=== PATIENT | male | born 1945 | race Caucasian/White ===

== ENCOUNTER 2017-03-16 04:36 | Emergency (ER) | payer MEDICARE, BC ==
[2017-03-16 04:51] VITALS: BP 174/85; PULSE 129; RESP 24; TEMP 97.1
--- NOTE | 2017-03-16 05:28 | ED ---
General Adult HPI - General Chief complaint: Recheck/Abnormal Lab/Rx Stated complaint: No sleep, Med refill Time Seen by Provider: 03/16/17 04:53 Source: patient Mode of arrival: ambulatory Limitations: no limitations - History of Present Illness Initial comments: Patient is 72-year-old man who presents to be evaluated for having run out of the tramadol that he usually takes. The patient states that he has recently moved here from [place] and the prescription for tramadol 50 mg that he had has run out. Patient states that he is scheduled to see Dr. Gallagher on February 19. The patient states that he is having aches and also feels twitchy and anxious. Patient states he also has not been able to sleep. -: days(s) Consistency: constant Improves with: none Worsens with: none Associated Symptoms: malaise, nausea/vomiting - Related Data Previous Rx's Medication Instructions Recorded traMADol HCl [Ultram] 50 mg PO Q6H PRN #20 tab 03/16/17 Allergies Allergy/AdvReac Type Severity Reaction Status Date / Time No Known Allergies Allergy Verified 03/16/17 04:51 Review of Systems ROS Statement: Those systems with pertinent positive or pertinent negative responses have been documented in the HPI. ROS Other: All systems not noted in ROS Statement are negative. Constitutional: Reports: chills. Denies: fever, weakness Respiratory: Denies: cough, dyspnea Cardiovascular: Denies: chest pain, dyspnea on exertion, orthopnea, edema Gastrointestinal: Reports: nausea. Denies: abdominal pain, vomiting Musculoskeletal: Reports: myalgia Skin: Denies: rash Neurological: Denies: headache, weakness, numbness Psychiatric: Reports: anxiety Past Medical History Past Medical History: Hypertension History of Any Multi-Drug Resistant Organisms: None Reported Additional Past Surgical History / Comment(s): laminectomy L5 S2. Past Psychological History: No Psychological Hx Reported Smoking Status: Never smoker Past Alcohol Use History: None Reported Past Drug Use History: Marijuana General Exam Limitations: no limitations General appearance: alert Head exam: Present: atraumatic, normocephalic GI/Abdominal exam: Present: soft. Absent: tenderness Extremities exam: Present: normal inspection Neurological exam: Present: alert Psychiatric exam: Present: anxious Course Vital Signs 03/16/17 04:44 Temperature 97.1 F L Pulse Rate 129 H Respiratory 24 Rate Blood Pressure 174/85 O2 Sat by Pulse 98 Oximetry Disposition Clinical Impression: Encounter for medication refill, Opioid withdrawal Disposition: HOME SELF-CARE Condition: Fair Instructions: Opioid Withdrawal (ED) Prescriptions: traMADol HCl [Ultram] 50 mg PO Q6H PRN #20 tab PRN Reason: Pain Referrals: Robin Gallagher MD [Primary Care Provider] - 1-2 days
== END 2017-03-16 05:38 | disposition home or self-care (01) ==
LOC: EC 04:36
DX: F11.23 Opioid dependence with withdrawal (principal); Z76.0 Encounter for issue of repeat prescription
CPT/HCPCS: 99283

== ENCOUNTER 2021-04-12 09:40 | Inpatient (IN) | payer BC, MEDICARE ==
[2021-04-12] MEDS ORDERED: SODIUM CHLORIDE 0.9% 500 ML 500 ML IV STA (10:03)
[2021-04-12] MEDS ORDERED: SODIUM CHLORIDE 0.9% 1,000 ML IV STA (10:03)
[2021-04-12] MEDS ORDERED: ASPIRIN 81 MG PO STA (10:04)
[2021-04-12] MEDS ORDERED: ACETAMINOPHEN TAB 500 MG TAB PO STA (10:04)
--- NOTE | 2021-04-12 10:14 | ED ---
General Adult HPI - General Chief complaint: Nausea/Vomiting/Diarrhea Stated complaint: diarrhea, weakness, confusion Time Seen by Provider: 04/12/21 09:48 Source: patient, family, EMS, RN notes reviewed Mode of arrival: EMS Limitations: no limitations - History of Present Illness Initial comments: This a 76-year-old male presents emergency department via EMS chief complaint of generalized weakness, diarrhea. Patient states he's been having persistent diarrhea the last couple days he does have a history of colitis but states is much different. in the room states that he's been confused, and having abnormal behavior at home. Patient does have some lower abdominal cramping associated with his diarrhea denies any melena hematochezia. Patient denies any chest pain, shortness breath, dizziness, upper back pain. Patient has no prior cardiac disease she does admit that he has hypertension, Lipidemia is taking medications for. Patient denies any dysuria hematuria no history of urinary tract infections. Patient did not because he had a fever at home. No recent Tylenol Motrin taken. - Related Data Previous Rx's Medication Instructions Recorded traMADol HCl [Ultram] 50 mg PO Q6H PRN #20 tab 03/16/17 Allergies Allergy/AdvReac Type Severity Reaction Status Date / Time No Known Allergies Allergy Verified 04/12/21 09:48 Review of Systems ROS Statement: Those systems with pertinent positive or pertinent negative responses have been documented in the HPI. ROS Other: All systems not noted in ROS Statement are negative. Past Medical History Past Medical History: Hypertension History of Any Multi-Drug Resistant Organisms: None Reported Additional Past Surgical History / Comment(s): laminectomy L5 S2. Past Psychological History: No Psychological Hx Reported Smoking Status: Never smoker Past Alcohol Use History: None Reported Past Drug Use History: Marijuana General Exam Limitations: no limitations General appearance: alert, in no apparent distress Head exam: Present: atraumatic, normocephalic, normal inspection Eye exam: Present: normal appearance, PERRL, EOMI. Absent: scleral icterus, conjunctival injection, periorbital swelling ENT exam: Present: mucous membranes dry. Absent: normal exam Neck exam: Present: normal inspection, full ROM. Absent: tenderness, meningismus, lymphadenopathy Respiratory exam: Present: normal lung sounds bilaterally. Absent: respiratory distress, wheezes, rales, rhonchi, stridor Cardiovascular Exam: Present: normal rhythm, tachycardia, normal heart sounds. Absent: systolic murmur, diastolic murmur, rubs, gallop, clicks GI/Abdominal exam: Present: soft, tenderness (Mild lower abdominal tenderness), normal bowel sounds. Absent: distended, guarding, rebound, rigid Neurological exam: Present: alert, oriented X3 Skin exam: Present: warm, dry, intact, normal color. Absent: rash Course Vital Signs 04/12/21 04/12/21 04/12/21 09:43 10:15 11:33 Temperature 100.6 F H Pulse Rate 113 H 101 H Respiratory 24 18 Rate Blood Pressure 102/52 95/67 O2 Sat by Pulse 99 97 Oximetry EKG Findings - EKG Comments: EKG Findings:: EKG performed at 9:52 sinus tachycardia with rate of 111 IN 138 QRS 86 QTC is QTC 314/[address] depression V3 through V6 with no other changes noted. Repeat EKG shows no acute changes Medical Decision Making - Medical Decision Making CT does not show any specific changes. Patient's found to Be in acute renal failure, dehydration most likely infectious diarrhea. Patient we given a dose of antibiotics pending stool culture, C. diff. Patient has a lactic acidosis a 2.8, patient was given fluid boluses, started on maintenance fluids patient be admitted for further evaluation and treatment. Patient's EKG did show some ST depression patient no complaints of chest pain, shortness breath, pressure. Repeat EKG showed no progression. - Lab Data Result diagrams: 04/12/21 10:13 04/12/21 10:13 Lab Results 04/12/21 04/12/21 04/12/21 Range/Units 10:13 10:13 10:13 WBC 5.5 (3.8-10.6) k/uL RBC 4.08 L (4.30-5.90) m/uL Hgb 12.9 L (13.0-17.5) gm/dL Hct 37.0 L (39.0-53.0) % MCV 90.8 (80.0-100.0) fL MCH 31.7 (25.0-35.0) pg MCHC 35.0 (31.0-37.0) g/dL RDW 13.6 (11.5-15.5) % Plt Count 350 (150-450) k/uL MPV 7.5 Neutrophils % (Manual) 52 % Band Neuts % (Manual) 25 % Lymphocytes % (Manual) 5 % Monocytes % (Manual) 16 % Metamyelocytes % 1 % Myelocytes % 1 % Neutrophils # (Manual) 4.20 (1.3-7.7) k/uL Lymphocytes # (Manual) 0.28 L (1.0-4.8) k/uL Monocytes # (Manual) 0.88 (0-1.0) k/uL Metamyelocytes # (Man) 0.06 H (0) k/uL Myelocytes # (Manual) 0.06 H (0) k/uL Nucleated RBCs 0 (0-0) /100 WBC Polychromasia Present Poikilocytosis (manual Present PT 11.4 (9.0-12.0) sec INR 1.1 (<1.2) APTT 27.3 (22.0-30.0) sec Sodium 133 L (137-145) mmol/L Potassium 4.7 (3.5-5.1) mmol/L Chloride 103 (98-107) mmol/L Carbon Dioxide 18 L (22-30) mmol/L Anion Gap 12 mmol/L BUN 53 H (9-20) mg/dL Creatinine 2.44 H (0.66-1.25) mg/dL Est GFR (CKD-EPI)AfAm 29 (>60 ml/min/1.73 sqM) Est GFR (CKD-EPI)NonAf 25 (>60 ml/min/1.73 sqM) Glucose 112 H (74-99) mg/dL Plasma Lactic Acid Esau (0.7-2.0) mmol/L Calcium 8.2 L (8.4-10.2) mg/dL Magnesium 2.6 H (1.6-2.3) mg/dL Total Bilirubin 0.5 (0.2-1.3) mg/dL AST 25 (17-59) U/L ALT 14 (4-49) U/L Alkaline Phosphatase 407 H (38-126) U/L Troponin I (0.000-0.034) ng/mL Total Protein 5.2 L (6.3-8.2) g/dL Albumin 2.9 L (3.5-5.0) g/dL Coronavirus (PCR) (Not Detectd) 0904/12/21 04/12/21 Range/Units 10:13 10:13 10:15 WBC (3.8-10.6) k/uL RBC (4.30-5.90) m/uL Hgb (13.0-17.5) gm/dL Hct (39.0-53.0) % MCV (80.0-100.0) fL MCH (25.0-35.0) pg MCHC (31.0-37.0) g/dL RDW (11.5-15.5) % Plt Count (150-450) k/uL MPV Neutrophils % (Manual) % Band Neuts % (Manual) % Lymphocytes % (Manual) % Monocytes % (Manual) % Metamyelocytes % % Myelocytes % % Neutrophils # (Manual) (1.3-7.7) k/uL Lymphocytes # (Manual) (1.0-4.8) k/uL Monocytes # (Manual) (0-1.0) k/uL Metamyelocytes # (Man) (0) k/uL Myelocytes # (Manual) (0) k/uL Nucleated RBCs (0-0) /100 WBC Polychromasia Poikilocytosis (manual PT (9.0-12.0) sec INR (<1.2) APTT (22.0-30.0) sec Sodium (137-145) mmol/L Potassium (3.5-5.1) mmol/L Chloride (98-107) mmol/L Carbon Dioxide (22-30) mmol/L Anion Gap mmol/L BUN (9-20) mg/dL Creatinine (0.66-1.25) mg/dL Est GFR (CKD-EPI)AfAm (>60 ml/min/1.73 sqM) Est GFR (CKD-EPI)NonAf (>60 ml/min/1.73 sqM) Glucose (74-99) mg/dL Plasma Lactic Acid Esau 2.8 H* (0.7-2.0) mmol/L Calcium (8.4-10.2) mg/dL Magnesium (1.6-2.3) mg/dL Total Bilirubin (0.2-1.3) mg/dL AST (17-59) U/L ALT (4-49) U/L Alkaline Phosphatase (38-126) U/L Troponin I <0.012 (0.000-0.034) ng/mL Total Protein (6.3-8.2) g/dL Albumin (3.5-5.0) g/dL Coronavirus (PCR) Not Detected (Not Detectd) Disposition Clinical Impression: Dehydration, Acute kidney injury, Diarrhea, Lactic acidosis, Febrile illness Disposition: ADMITTED IP TO THIS [facility] Condition: Fair Referrals: Robin Gallagher MD [Primary Care Provider] - 1-2 days
--- NOTE | 2021-04-12 10:43 | XR ---
EXAMINATION TYPE: XR chest 2V DATE OF EXAM: 04/12/2021 COMPARISON: NONE HISTORY: Weakness TECHNIQUE: Frontal and lateral views of the chest are obtained. FINDINGS: There is no focal air space opacity, pleural effusion, or pneumothorax seen. The cardiac silhouette size is within normal limits. The osseous structures are intact. IMPRESSION: No acute cardiopulmonary process.
[2021-04-12 10:51] LABS: Albumin 2.9 g/dL (3.5-5.0); Calcium 8.2 mg/dL (8.4-10.2); Magnesium 2.6 mg/dL (1.6-2.3); Potassium 4.7 mmol/L (3.5-5.1); Total Bilirubin 0.5 mg/dL (0.2-1.3); Total Protein 5.2 g/dL (6.3-8.2)
[2021-04-12 10:54] LABS: INR 1.1 (<1.2); Partial Thromboplastin Time 27.3 sec (22.0-30.0); Prothrombin Time 11.4 sec (9.0-12.0)
[2021-04-12 10:55] LABS: HGB 12.9 gm/dL (13.0-17.5); MCH 31.7 pg (25.0-35.0); MCV 90.8 fL (80.0-100.0); Mean Platelet Volume 7.5; Platelet Count 350 k/uL (150-450); RBC 4.08 m/uL (4.30-5.90); RDW 13.6 % (11.5-15.5); WBC 5.5 k/uL (3.8-10.6)
[2021-04-12 11:14] LABS: Band Neutrophils % 25 %; Lymphocytes # (M) 0.28 k/uL (1.0-4.8); Metamyelocytes # (M) 0.06 k/uL (0); Metamyelocytes % 1 %; Monocytes # (M) 0.88 k/uL (0-1.0); Myelocytes # (M) 0.06 k/uL (0); Myelocytes % 1 %; Neutrophils % (M) 52 %; Nucleated Red Blood Cells 0 /100 WBC (0-0); Poikilocytosis (M) Present; Polychromasia Present; Total Cells Counted 100
--- NOTE | 2021-04-12 11:50 | CT ---
EXAMINATION TYPE: CT abdomen pelvis wo con DATE OF EXAM: 04/12/2021 COMPARISON: None HISTORY: Lower pelvic pain CT DLP: 495.9 mGycm Automated exposure control for dose reduction was used. TECHNIQUE: Helical acquisition of images was performed from the lung bases through the pelvis. FINDINGS: There is mild scattered interstitial density in the lung bases likely reflecting mild atelectasis or chronic interstitial scarring. There are no suspicious lung masses or area of airspace consolidation. There is no cholelithiasis there is no renal, ureteral or urinary bladder calcification. There is no hydronephrosis. There is a simple cortical cyst of the left kidney. There is no organomegaly involving the liver, pancreas, spleen or adrenal glands. The caliber of the abdominal aorta is normal and there is diffuse arteriosclerotic calcification of t he aorta and iliac vessels. There is no retroperitoneal adenopathy or hemorrhage. The bowel loops are normal in caliber and there is no evidence of dilatation or obstruction. There is no free intraperitoneal air, free fluid or mesenteric inflammation. There is mild diverticulosis of the colon. There is no pelvic mass, free fluid, abscess or adenopathy. The osseous structures are intact. IMPRESSION: Incidental findings as described above. Etiology of the patient's pelvic pain is indeterminate follow ing this examination.
[2021-04-12] MEDS ORDERED: LEVOFLOXACIN 750MG-D5W PMX 750 MG in DEXTROSE/WATER 1 150ML.BAG IVPB STA (12:22)
[2021-04-12] MEDS ORDERED: metroNIDAZOLE-NS PMX 500 MG in SALINE 1 100ML.BAG IVPB STA (12:22)
[2021-04-12] MEDS ORDERED: NALOXONE 0.4 MG/ML 1 ML VIAL IV PRN (12:24)
[2021-04-12] MEDS ORDERED: ACETAMINOPHEN TAB 325 MG TAB PO PRN (12:24)
[2021-04-12] MEDS ORDERED: ONDANSETRON 4 MG/2 ML VIAL IVP PRN (12:24)
[2021-04-12] MEDS: SODIUM CHLORIDE 0.9% 1,000 ML IV SCH ×2 (14:08→20:43)
[2021-04-12 16:48] LABS: Appearance,Urine Cloudy (Clear); Bacteria,Urine Rare /hpf; Bilirubin,Urine Negative (Negative); Blood,Urine Large (Negative); Budding Yeast,Urine Occasional /hpf; Color,Urine Yellow; Glucose,Urine (UA) Negative (Negative); Ketones,Urine Negative (Negative); Leukocyte Esterase,Urine Negative (Negative); Mucus,Urine Rare /hpf; Nitrite,Urine Negative (Negative); Protein,Urine Trace (Negative); RBC,Urine 22 /hpf (0-5); Specific Gravity,Urine 1.015 (1.001-1.035); Squamous Epithelial Cell,Urine <1 /hpf (0-4); Urobilinogen,Urine <2.0 mg/dL (<2.0); WBC,Urine 27 /hpf (0-5)
[2021-04-12] MEDS: ATORVASTATIN 40 MG TAB PO SCH (20:42)
[2021-04-12] MEDS: AMITRIPTYLINE HCL 50 MG TAB PO SCH (20:42)
[2021-04-12] MEDS: traMADol 50 MG TAB PO PRN (21:26)
--- NOTE | 2021-04-12 22:13 | P.HPIM ---
History of Present Illness H&P Date: 04/12/21 Chief Complaint: Diarrhea is 76-year-old male with a past medical history of hypertension brought into the hospital with a chief complaint of generalized weakness and diarrhea. Patient is a poor historian. Patient states that he has history of colitis and that he has chronic diarrhea. But for the past 2 to 3 days his diarrhea has been worsening. He was also complaining of nausea along with few episodes of vomiting. Patient denies having any fever. He is states that he has cramping abdominal pain mostly in the lower quadrants. Patient denies having any sick contacts. He denies consuming outside food. Patient denied having any blood or mucus in the stool. Patient denied having any chest pain or palpitations. No cough or difficulty in breathing. No dysuria or hematuria. In the ER at the time of admission patient's vitals temperature of 100.6, heart rate 113, respiratory rate 24, blood pressure 102 x 52 saturating at 99 on room air. He had an EKG done showing sinus tachycardia with T wave flattening and T wave inversions. No previous EKGs for comparison. On reviewing his labs white count of 5.5 hemoglobin 12.9 platelets 350. Sodium 133, potassium 4.7 chloride 103 bicarb 18 BUN 53, creatinine 2.44 magnesium 2.6 troponin less than 0.012 albumin 2.9 urine analysis positive for large blood negative for nitrites and esterase 27 WBCs with occasional budding yeast. Coronary virus negative. C. difficile negative. Patient also had a CAT scan of the abdomen and pelvis showing no acute intra-abdominal process there is evidence of diverticulosis. Review of Systems REVIEW OF SYSTEMS: CONSTITUTIONAL: As mentioned in HPI HEENT: No recent visual problems or hearing problems. Denied any sore throat. CARDIOVASCULAR: No chest pain, orthopnea, PND, no palpitations, no syncope. PULMONARY: No shortness of breath, no cough, no hemoptysis. GASTROINTESTINAL: As mentioned in HPI NEUROLOGICAL: No headaches, no weakness, no numbness. HEMATOLOGICAL: Denies any bleeding or petechiae. GENITOURINARY: Denies any burning micturition, frequency, or urgency. MUSCULOSKELETAL/RHEUMATOLOGICAL: Denies any joint pain, swelling, or any muscle pain. ENDOCRINE: Denies any polyuria or polydipsia. The rest of the 14-point review of systems is negative. Past Medical History Past Medical History: Hypertension History of Any Multi-Drug Resistant Organisms: None Reported Additional Past Surgical History / Comment(s): laminectomy L5 S2. Past Psychological History: No Psychological Hx Reported Smoking Status: Never smoker Past Alcohol Use History: None Reported Past Drug Use History: Marijuana Medications and Allergies Home Medications Medication Instructions Recorded Confirmed Type Amitriptyline HCl [Elavil] 100 mg PO HS 04/12/21 04/12/21 History Atorvastatin Calcium [Lipitor] 40 mg PO HS 04/12/21 04/12/21 History Diltiazem HCl [Diltiazem HCl 24Hr 300 mg PO DAILY 04/12/21 04/12/21 History ER ([place])] L.acidoph,Paracasei, B.lactis 1 cap PO DAILY 04/12/21 04/12/21 History [Probiotic] Naproxen 500 mg PO BID 04/12/21 04/12/21 History Sertraline HCl [Zoloft] 150 mg PO DAILY 04/12/21 04/12/21 History traMADol HCl [Ultram] 50 mg PO Q4H PRN 04/12/21 04/12/21 History Allergies Allergy/AdvReac Type Severity Reaction Status Date / Time No Known Allergies Allergy Verified 04/12/21 09:48 Physical Exam Vitals: Vital Signs Temp Pulse Resp BP Pulse Ox 04/12/21 16:32 101 H 18 138/65 98 04/12/21 15:17 102 H 18 114/63 99 04/12/21 14:09 97.9 F 102 H 18 95/59 98 04/12/21 11:33 101 H 18 95/67 97 04/12/21 10:15 99 04/12/21 09:43 100.6 F H 113 H 24 102/52 Intake and Output 04/12/21 04/12/21 04/12/21 06:59 14:59 22:59 Other: Voiding Method Toilet Weight 74.843 kg PHYSICAL EXAMINATION: GENERAL: The patient is alert and oriented x2, not in any acute distress. Well developed, well nourished. HEENT: Pupils are round and equally reacting to light. EOMI. No scleral icterus. No conjunctival pallor. Normocephalic, atraumatic. No pharyngeal erythema. No thyromegaly. CARDIOVASCULAR: S1 and S2 present. No murmurs, rubs, or gallops. PULMONARY: Chest is clear to auscultation, no wheezing or crackles. ABDOMEN: Soft, mild tenderness in all quadrants, nondistended, normoactive bowel sounds. No palpable organomegaly. No guarding or rigidity MUSCULOSKELETAL: No joint swelling or deformity. EXTREMITIES: No cyanosis, clubbing, or pedal edema. NEUROLOGICAL: Gross neurological examination did not reveal any focal deficits. SKIN: No rashes. Results CBC & Chem 7: 04/12/21 10:13 04/12/21 10:13 Labs: Abnormal Lab Results - Last 24 Hours (Table) 04/12/21 04/12/21 04/12/21 Range/Units 10:13 10:13 10:13 RBC 4.08 L (4.30-5.90) m/uL Hgb 12.9 L (13.0-17.5) gm/dL Hct 37.0 L (39.0-53.0) % Lymphocytes # (Manual) 0.28 L (1.0-4.8) k/uL Metamyelocytes # (Man) 0.06 H (0) k/uL Myelocytes # (Manual) 0.06 H (0) k/uL Sodium 133 L (137-145) mmol/L Carbon Dioxide 18 L (22-30) mmol/L BUN 53 H (9-20) mg/dL Creatinine 2.44 H (0.66-1.25) mg/dL Glucose 112 H (74-99) mg/dL Plasma Lactic Acid Esau 2.8 H* (0.7-2.0) mmol/L Calcium 8.2 L (8.4-10.2) mg/dL Magnesium 2.6 H (1.6-2.3) mg/dL Alkaline Phosphatase 407 H (38-126) U/L Total Protein 5.2 L (6.3-8.2) g/dL Albumin 2.9 L (3.5-5.0) g/dL Assessment and Plan Assessment: ASSESSMENT Sepsis source most likely intra-abdominal pathology Possible UTI Acute kidney injury Mild hyponatremia Hypocalcemia Moderate protein calorie malnutrition Hypertension Cognitive impairment Plan: Patient received a dose of levofloxacin and Flagyl in the ED. Will start Zosyn. His C. difficile has been negative. Urine analysis showing possibility of UTI. As the patient's urine was showing voiding the same he has a fever we'll start the patient on fluconazole 200 mg daily until the urine cultures are back. Stool culture ordered. Patient has been restarted on his home medications. Continue with IV fluids at 130 cc/h as the patient has acute kidney injury. We'll repeat a.m. labs. Further management depending upon the progress of the patient.
[2021-04-12] MEDS: FLUCONAZOLE 100 MG TAB PO SCH (23:44)
[2021-04-13] MEDS ORDERED: PIPERACILLIN-TAZOBACTAM 3.375 GM in SODIUM CHLORIDE 0.9% 100 ML IVPB SCH ×2
[2021-04-13] MEDS: PIPERACILLIN-TAZOBACTAM 3.375 GM in SODIUM CHLORIDE 0.9% 100 ML IVPB SCH ×3 (02:41→17:29)
[2021-04-13] MEDS: traMADol 50 MG TAB PO PRN ×2 (02:56→10:35)
--- NOTE | 2021-04-13 08:26 | P.PN ---
Subjective Progress Note Date: 04/13/21 Principal diagnosis: Dehydration The patient is admitted for gastroenteritis with significant diarrhea. Acute kidney injury with dehydration. The patient has an underlying history of Ultram dependency. His does not have similar symptomatology. No abnormal dietary intake stated. Objective - Vital Signs Vital signs: Vital Signs Temp 98.0 F 04/12/21 19:37 Pulse 99 04/13/21 06:00 Resp 18 04/13/21 06:00 BP 132/89 04/13/21 06:00 Pulse Ox 97 04/13/21 06:00 Intake & Output 04/12/21 04/13/21 04/13/21 18:59 06:59 18:59 Weight 74.843 kg Other: Voiding Method Toilet - Constitutional General appearance: Present: average body habitus - EENT Eyes: Absent: abnormal pupil ENT: Absent: hard of hearing - Neck Neck: Absent: lymphadenopathy - Respiratory Respiratory: bilateral: CTA - Cardiovascular Rhythm: regular Heart sounds: normal: S1, S2 Abnormal Heart Sounds: Absent: S3 Gallop - Gastrointestinal General gastrointestinal: Present: hyperactive bowel sounds - Neurologic Neurologic: Present: CNII-XII intact - Labs CBC & Chem 7: 04/12/21 10:13 04/12/21 10:13 Labs: Abnormal Lab Results - Last 24 Hours (Table) 04/12/21 04/12/21 04/12/21 Range/Units 10:13 10:13 10:13 RBC 4.08 L (4.30-5.90) m/uL Hgb 12.9 L (13.0-17.5) gm/dL Hct 37.0 L (39.0-53.0) % Lymphocytes # (Manual) 0.28 L (1.0-4.8) k/uL Metamyelocytes # (Man) 0.06 H (0) k/uL Myelocytes # (Manual) 0.06 H (0) k/uL Sodium 133 L (137-145) mmol/L Carbon Dioxide 18 L (22-30) mmol/L BUN 53 H (9-20) mg/dL Creatinine 2.44 H (0.66-1.25) mg/dL Glucose 112 H (74-99) mg/dL Plasma Lactic Acid Esau 2.8 H* (0.7-2.0) mmol/L Calcium 8.2 L (8.4-10.2) mg/dL Magnesium 2.6 H (1.6-2.3) mg/dL Alkaline Phosphatase 407 H (38-126) U/L Total Protein 5.2 L (6.3-8.2) g/dL Albumin 2.9 L (3.5-5.0) g/dL Urine Protein (Negative) Urine Blood (Negative) Urine RBC (0-5) /hpf Urine WBC (0-5) /hpf Urine Bacteria (None) /hpf Urine Mucus (None) /hpf Urine Yeast (Budding) (None) /hpf 04/12/21 Range/Units 16:33 RBC (4.30-5.90) m/uL Hgb (13.0-17.5) gm/dL Hct (39.0-53.0) % Lymphocytes # (Manual) (1.0-4.8) k/uL Metamyelocytes # (Man) (0) k/uL Myelocytes # (Manual) (0) k/uL Sodium (137-145) mmol/L Carbon Dioxide (22-30) mmol/L BUN (9-20) mg/dL Creatinine (0.66-1.25) mg/dL Glucose (74-99) mg/dL Plasma Lactic Acid Esau (0.7-2.0) mmol/L Calcium (8.4-10.2) mg/dL Magnesium (1.6-2.3) mg/dL Alkaline Phosphatase (38-126) U/L Total Protein (6.3-8.2) g/dL Albumin (3.5-5.0) g/dL Urine Protein Trace H (Negative) Urine Blood Large H (Negative) Urine RBC 22 H (0-5) /hpf Urine WBC 27 H (0-5) /hpf Urine Bacteria Rare H (None) /hpf Urine Mucus Rare H (None) /hpf Urine Yeast (Budding) Occasional H (None) /hpf Microbiology - Last 24 Hours (Table) 04/12/21 15:17 Stool Culture - Preliminary Stool 04/12/21 16:33 Urine Culture - Preliminary Urine,Clean Catch Assessment and Plan (1) Acute kidney injury Current Visit: Yes Status: Acute Code(s): N17.9 - ACUTE KIDNEY FAILURE, UNSPECIFIED SNOMED Code(s): 20650182 (2) Dehydration Current Visit: Yes Status: Acute Code(s): E86.0 - DEHYDRATION SNOMED Code(s): 96442953 (3) Diarrhea Current Visit: Yes Status: Acute Code(s): R19.7 - DIARRHEA, UNSPECIFIED SNOMED Code(s): 98921855 Plan: Continue IV hydration. Check CMP in a.m. Stool culture as necessary. Reconcile medications as patient tolerates.
[2021-04-13 09:48] LABS: Basophils # (A) 0.01 X 10*3/uL (0.00-0.10); Basophils % (A) 0.2 %; Eosinophils # (A) 0.01 X 10*3/uL (0.04-0.35); Eosinophils % (A) 0.2 %; HCT 34.8 % (39.6-50.0); HGB 11.9 g/dL (13.0-17.0); Lymphocytes # (A) 0.42 X 10*3/uL (0.90-5.00); Lymphocytes % (A) 8.8 %; MCH 31.6 pg (27.0-32.0); MCHC 34.2 g/dL (32.0-37.0); MCV 92.6 fL (80.0-97.0); Mean Platelet Volume 9.5 fL (9.5-12.2); Monocytes # (A) 0.83 X 10*3/uL (0.20-1.00); Monocytes % (A) 17.4 %; Neutrophils # (A) 3.42 X 10*3/uL (1.80-7.70); Neutrophils % (A) 71.5 %; Platelet Count 284 X 10*3/uL (140-440); RBC 3.76 X 10*6/uL (4.40-5.60); RDW 13.3 % (11.5-14.5); WBC 4.78 X 10*3/uL (4.50-10.00)
[2021-04-13] MEDS: FLUCONAZOLE 100 MG TAB PO SCH (10:23)
[2021-04-13] MEDS: SERTRALINE 50 MG TAB PO SCH (10:24)
[2021-04-13] MEDS: LACTOBACILLUS ACIDOPH & BULGAR 1 EACH PACKET PO SCH (10:24)
[2021-04-13] MEDS: SODIUM CHLORIDE 0.9% 1,000 ML IV SCH ×3 (10:24→20:41)
[2021-04-13 10:51] LABS: African American GFR (CKD) 76.2 (60.0-200.0); Albumin 3.6 g/dL (3.80-4.90); Albumin/Globulin Ratio 1.8 (1.60-3.17); Anion Gap 15.8 mmol/L (4.00-12.00); BUN/Creat Ratio 32.73 Ratio (12.00-20.00); Calcium 8.1 mg/dL (8.7-10.3); Carbon Dioxide 16.2 mmol/L (21.6-31.8); Non-African American GFR(CKD) 65.8 (60.0-200.0); Potassium 4.3 mmol/L (3.5-5.5); Total Bilirubin 0.3 mg/dL (0.2-1.2); Total Protein 5.6 g/dL (6.2-8.2)
[2021-04-13] MEDS ORDERED: KETOROLAC 15 MG/ML 1 ML VIAL IVP STA (15:26)
[2021-04-13] MEDS ORDERED: ONDANSETRON 4 MG/2 ML VIAL IVP PRN (18:38)
[2021-04-13] MEDS: AMITRIPTYLINE HCL 50 MG TAB PO SCH (20:41)
[2021-04-13] MEDS: ATORVASTATIN 40 MG TAB PO SCH (20:41)
[2021-04-14] MEDS: SODIUM CHLORIDE 0.9% 1,000 ML IV SCH ×2 (04:01→10:18)
[2021-04-14] MEDS: PIPERACILLIN-TAZOBACTAM 3.375 GM in SODIUM CHLORIDE 0.9% 100 ML IVPB SCH ×3 (04:02→17:56)
[2021-04-14] MEDS: traMADol 50 MG TAB PO PRN ×3 (05:30→20:37)
[2021-04-14 07:44] LABS: ALT 22 U/L (4-49); AST 64 U/L (17-59); African American GFR (CKD) >90 (>60 ml/min/1.73 sqM); Albumin 2.6 g/dL (3.5-5.0); Albumin/Globulin Ratio 1.1; Alkaline Phosphatase 200 U/L (38-126); Anion Gap 8 mmol/L; Blood Urea Nitrogen 21 mg/dL (9-20); Calcium 7.5 mg/dL (8.4-10.2); Carbon Dioxide 19 mmol/L (22-30); Chloride 111 mmol/L (98-107); Globulin 2.3 g/dL; Glucose 69 mg/dL (74-99); Non-African American GFR(CKD) >90 (>60 ml/min/1.73 sqM); Potassium 4.2 mmol/L (3.5-5.1); Sodium 138 mmol/L (137-145); Total Bilirubin 0.4 mg/dL (0.2-1.3); Total Protein 4.9 g/dL (6.3-8.2)
[2021-04-14] MEDS: FLUCONAZOLE 100 MG TAB PO SCH (08:13)
[2021-04-14] MEDS: SERTRALINE 50 MG TAB PO SCH (08:13)
[2021-04-14] MEDS: LACTOBACILLUS ACIDOPH & BULGAR 1 EACH PACKET PO SCH (08:13)
--- NOTE | 2021-04-14 10:05 | CDI ---
Documentation Clarification Form Date: 04/14/2021 09:55:25 AM From: Adali Grover, [facility], CCDS Admit Date: 04/12/2021 12:31:00 PM Patient Name: David Rod Visit Number: [id number] Discharge Date: ATTENTION: The Clinical Documentation Specialists (CDI) and [facility] Coding Staff appreciate your assistance in clarifying documentation. Please respond to the clarification below the line at the bottom and electronically sign. The CDI & [facility] Coding staff will review the response and follow-up if needed. Please note: Queries are made part of the Legal Health Record. If you have any questions, please contact the author of this message via ITS. Dr. Robin Gallagher: Sepsis source most likely intra-abdominal pathology and possible UTI with PRASHANTH is documented in the 04/12 History & Physical. Additional clarification regarding the etiology/cause of the clinical indicators is requested. History/Risk Factors per the 04/12 H/P: Hypertension, Hyperlipidemia, Cognitive impairment, Chronic Diarrhea. Clinical Indicators: Presented to the ED on 04/12 via EMS with Nausea, Vomiting, Diarrhea, Weakness and Confusion per family. ED Clinical Impression: Dehydration, PRASHANTH, Diarrhea, Lactic Acidosis and Febrile Illness 04/12 ED: T 100.6, P 113, R 24, BP 102/52, PO 99 RA, BMI: 21.8 04/12 LAB: RBC 4.08, Hgb 12.9, Hct 37.0, Lymph 0.28; Na 133, CO2 18, BUN 53, Creatinine 2.44, Glucose 112, Lactic Acid 2.8, Calcium 8.2, Magnesium 2.6, Alk Phos 407, Total Protein 5.2, Albumin 2.9 04/12 UA: Cloudy, Trace Protein, Large Blood, RBC 22, WBC 27 04/12: C Diff: Negative. COVID NEG x2 04/12 CXR: No acute cardiopulmonary process. 04/12 Ct A/P: Incidental findings: Arteriosclerotic calcification of the aorta & iliac vessels, Mild diverticulosis of the colon. Treatment 04/12: Stool Culture, O2 2Lnc, IV Na Cl 1,000 mls @ 999 mls/hr q1H, IV Na Cl 500 mls @ 999 mls/hr q31M, IV Levaquin, IV Flagyl, IV Na Cl 1,000 mls @ 130 mls/hr q7H, po Diflucan. 04/13: IV Zosyn 100 mls @ 25 mls/hr q8Hr. In your professional opinion, please clarify if these findings signify one of the following conditions: [ ] Sepsis POA [ ] Sepsis, Not POA [ ] Sepsis ruled out [ ] Severe Sepsis with organ failure [ x ] Other, please specify ____SIRS [ ] Unable to determine (Template Last Reviewed: August 2020) [facility]
[2021-04-14 11:30] LABS: HCT 33.5 % (39.6-50.0); HGB 11.1 g/dL (13.0-17.0); MCH 30.9 pg (27.0-32.0); MCHC 33.1 g/dL (32.0-37.0); MCV 93.3 fL (80.0-97.0); Mean Platelet Volume 9.5 fL (9.5-12.2); Platelet Count 229 X 10*3/uL (140-440); RBC 3.59 X 10*6/uL (4.40-5.60); RDW 13.4 % (11.5-14.5); WBC 4.87 X 10*3/uL (4.50-10.00)
--- NOTE | 2021-04-14 13:27 | P.PN ---
Subjective Principal diagnosis: Dehydration. The patient is here after having improving diarrhea. The patient is admitted for gastroenteritis with significant diarrhea. Acute kidney injury with dehydration. The patient has an underlying history of Ultram dependency. His does not have similar symptomatology. No abnormal dietary intake stated. Today, the patient states he is feeling much better. Poor appetite but tolerating diet that he is given. Minimal diarrhea. Laboratory examination showed improvement of renal failure. Objective - Vital Signs Vital signs: Vital Signs Temp 98.3 F 04/14/21 07:26 Pulse 78 04/14/21 07:26 Resp 16 04/14/21 07:26 BP 164/78 04/14/21 07:26 Pulse Ox 95 04/14/21 07:26 Intake & Output 04/13/21 04/14/21 04/14/21 18:59 06:59 18:59 Intake Total 1620 Balance 1620 Weight 74.843 kg Intake: Intake, IV Titration 1140 Amount Piperacillin-Tazobactam 3 100 .375 gm In Sodium Chloride 0.9% 100 ml @ 25 mls/hr IVPB Q8H [facility] Rx#: [id number] Sodium Chloride 0.9% 1, 1040 000 ml @ 130 mls/hr IV . Q7H42M [facility] Rx#:[id number] Oral 480 Other: Voiding Method Toilet Toilet # Voids 3 # Bowel Movements 2 - Constitutional General appearance: Present: average body habitus, cooperative - EENT Eyes: Absent: abnormal pupil Ears: bilateral: normal - Neck Neck: Present: lymphadenopathy - Cardiovascular Rhythm: regular Heart sounds: normal: S1, S2 Abnormal Heart Sounds: Absent: S3 Gallop - Gastrointestinal General gastrointestinal: Present: soft. Absent: tenderness - Integumentary Integumentary: Present: rash - Neurologic Neurologic: Present: CNII-XII intact - Musculoskeletal Musculoskeletal: Present: generalized weakness - Psychiatric Psychiatric: Present: A&O x's 3. Absent: appropriate affect - Labs CBC & Chem 7: 04/14/21 06:34 04/14/21 06:34 Labs: Abnormal Lab Results - Last 24 Hours (Table) 04/14/21 04/14/21 Range/Units 06:34 06:34 RBC 3.59 L (4.40-5.60) X 10*6/uL Hgb 11.1 L (13.0-17.0) g/dL Hct 33.5 L (39.6-50.0) % Chloride 111 H (98-107) mmol/L Carbon Dioxide 19 L (22-30) mmol/L BUN 21 H (9-20) mg/dL Glucose 69 L (74-99) mg/dL Calcium 7.5 L (8.4-10.2) mg/dL AST 64 H (17-59) U/L Alkaline Phosphatase 200 H (38-126) U/L Total Protein 4.9 L (6.3-8.2) g/dL Albumin 2.6 L (3.5-5.0) g/dL Microbiology - Last 24 Hours (Table) 04/12/21 16:33 Urine Culture - Final Urine,Clean Catch Assessment and Plan (1) Acute kidney injury Current Visit: Yes Status: Acute Code(s): N17.9 - ACUTE KIDNEY FAILURE, UNSPECIFIED SNOMED Code(s): 00408895 (2) Dehydration Current Visit: Yes Status: Acute Code(s): E86.0 - DEHYDRATION SNOMED Code(s): 35470957 (3) Diarrhea Current Visit: Yes Status: Acute Code(s): R19.7 - DIARRHEA, UNSPECIFIED SNOMED Code(s): 51623628 Plan: Continue IV hydration. Check CMP in a.m. Stool culture as necessary. Reconcile medications as patient tolerates. Anticipate discharge in the next 24 hours IV to [facility]
[2021-04-14] MEDS ORDERED: SODIUM CHLORIDE 0.9% 1,000 ML IV SCH (13:30)
[2021-04-14] MEDS: ATORVASTATIN 40 MG TAB PO SCH (20:37)
[2021-04-14] MEDS: AMITRIPTYLINE HCL 50 MG TAB PO SCH (20:37)
[2021-04-15] MEDS: PIPERACILLIN-TAZOBACTAM 3.375 GM in SODIUM CHLORIDE 0.9% 100 ML IVPB SCH ×2 (02:04→08:10)
[2021-04-15 07:02] VITALS: BP 150/75; PULSE 79; RESP 15; TEMP 98.2
[2021-04-15 07:06] LABS: Anion Gap 8 mmol/L; Blood Urea Nitrogen 9 mg/dL (9-20); Carbon Dioxide 21 mmol/L (22-30); Chloride 108 mmol/L (98-107); Glucose 109 mg/dL (74-99); Potassium 3.8 mmol/L (3.5-5.1); Sodium 137 mmol/L (137-145)
[2021-04-15 07:07] LABS: ALT 31 U/L (4-49); AST 67 U/L (17-59); African American GFR (CKD) >90 (>60 ml/min/1.73 sqM); Albumin 2.9 g/dL (3.5-5.0); Albumin/Globulin Ratio 1.2; Alkaline Phosphatase 171 U/L (38-126); Calcium 7.8 mg/dL (8.4-10.2); Globulin 2.4 g/dL; Non-African American GFR(CKD) >90 (>60 ml/min/1.73 sqM); Total Bilirubin 0.4 mg/dL (0.2-1.3); Total Protein 5.3 g/dL (6.3-8.2)
[2021-04-15] MEDS: SERTRALINE 50 MG TAB PO SCH (08:09)
[2021-04-15] MEDS: FLUCONAZOLE 100 MG TAB PO SCH (08:10)
[2021-04-15] MEDS: LACTOBACILLUS ACIDOPH & BULGAR 1 EACH PACKET PO SCH (08:10)
--- NOTE | 2021-04-15 08:55 | P.DS ---
Providers Date of admission: 04/12/21 12:31 Attending physician: Robin Gallagher Primary care physician: Robin Gallagher - Discharge Diagnosis(es) (1) Acute kidney injury Current Visit: Yes Status: Acute (2) Dehydration Current Visit: Yes Status: Acute (3) Diarrhea Current Visit: Yes Status: Acute Hospital Course: This is a discharge summary 76-year-old white male essentially admitted for gastroenteritis and severe nausea and vomiting with dehydration and acute kidney injury. The patient was hydrated placed on appropriate antibiotic treatment and then 2 days later was tolerating appropriate diet. Pain was minimal no more diarrhea and the patient is discharged in stable condition to follow-up with me in about 3 days. Patient Condition at Discharge: Fair Plan - Discharge Summary New Discharge Prescriptions: New Amoxicillin/Potassium Clav [Augmentin 500-125 Tablet] 1 tab PO Q12HR 1 Days #10 tab Fluconazole [Diflucan] 200 mg PO DAILY #7 tab Continue Sertraline HCl [Zoloft] 150 mg PO DAILY Diltiazem HCl [Diltiazem HCl 24Hr ER (LA)] 300 mg PO DAILY Atorvastatin Calcium [Lipitor] 40 mg PO HS Amitriptyline HCl [Elavil] 100 mg PO HS L.acidoph,Paracasei, B.lactis [Probiotic] 1 cap PO DAILY Naproxen 500 mg PO BID traMADol HCl [Ultram] 50 mg PO Q4H PRN PRN Reason: Pain Discharge Medication List Amitriptyline HCl [Elavil] 100 mg PO HS 04/12/21 [History] Atorvastatin Calcium [Lipitor] 40 mg PO HS 04/12/21 [History] Diltiazem HCl [Diltiazem HCl 24Hr ER (LA)] 300 mg PO DAILY 04/12/21 [History] L.acidoph,Paracasei, B.lactis [Probiotic] 1 cap PO DAILY 04/12/21 [History] Naproxen 500 mg PO BID 04/12/21 [History] Sertraline HCl [Zoloft] 150 mg PO DAILY 04/12/21 [History] traMADol HCl [Ultram] 50 mg PO Q4H PRN 04/12/21 [History] Amoxicillin/Potassium Clav [Augmentin 500-125 Tablet] 1 tab PO Q12HR 1 Days #10 tab 04/15/21 [Rx] Fluconazole [Diflucan] 200 mg PO DAILY #7 tab 04/15/21 [Rx] Follow up Appointment(s)/Referral(s): Robin Gallagher MD [Primary Care Provider] - 1-2 days
[2021-04-15 09:36] LABS: HCT 33.8 % (39.6-50.0); HGB 11.6 g/dL (13.0-17.0); MCH 31.4 pg (27.0-32.0); MCHC 34.3 g/dL (32.0-37.0); MCV 91.4 fL (80.0-97.0); Mean Platelet Volume 9.3 fL (9.5-12.2); Platelet Count 264 X 10*3/uL (140-440); RDW 13.2 % (11.5-14.5); WBC 7.38 X 10*3/uL (4.50-10.00)
== END 2021-04-15 11:17 | disposition home or self-care (01) | DRG 683 ==
LOC: EC 09:40 → 4SSUR 12:31
PROVIDERS: ADMIT Family Medicine; ATTEND Family Medicine
DX: N17.9 Acute kidney failure, unspecified (principal); A09 Infectious gastroenteritis and colitis, unspecified; R65.10 Systemic inflammatory response syndrome (SIRS) of non-infectious origin without acute organ dysfunction; E87.2 Acidosis; E44.0 Moderate protein-calorie malnutrition; E87.1 Hypo-osmolality and hyponatremia; E83.51 Hypocalcemia; Z20.822 Contact with and (suspected) exposure to COVID-19; E86.0 Dehydration; I10 Essential (primary) hypertension; K57.30 Diverticulosis of large intestine without perforation or abscess without bleeding; R41.89 Other symptoms and signs involving cognitive functions and awareness; Z79.899 Other long term (current) drug therapy; Z87.39 Personal history of other diseases of the musculoskeletal system and connective tissue; Z98.890 Other specified postprocedural states
CPT/HCPCS: 36415; 71046; 74176; 80053; 81001; 83605; 83735; 84484; 85025; 85027; 85610; 85730; 87045; 87046; 87086; 87324; 87635; 93005; 94760; 96361; 96365; 96366; 96367; 96375; 99285

== ENCOUNTER 2021-06-09 02:23 | Inpatient (IN) | payer MEDICARE ==
[2021-06-09 04:16] LABS: Basophils % (A) 0 %; Eosinophils # (A) 0.2 k/uL (0-0.7); Eosinophils % (A) 2 %; HCT 35.2 % (39.0-53.0); HGB 11.8 gm/dL (13.0-17.5); Lymphocytes % (A) 9 %; MCH 31.6 pg (25.0-35.0); MCHC 33.5 g/dL (31.0-37.0); MCV 94.2 fL (80.0-100.0); Mean Platelet Volume 6.8; Monocytes # (A) 0.5 k/uL (0-1.0); Monocytes % (A) 5 %; Neutrophils # (A) 8.6 k/uL (1.3-7.7); Neutrophils % (A) 82 %; Platelet Count 328 k/uL (150-450); RBC 3.74 m/uL (4.30-5.90); RDW 13.2 % (11.5-15.5); WBC 10.5 k/uL (3.8-10.6)
[2021-06-09 04:38] LABS: ALT 26 U/L (4-49); AST 35 U/L (17-59); African American GFR (CKD) >90 (>60 ml/min/1.73 sqM); Albumin 3.3 g/dL (3.5-5.0); Alkaline Phosphatase 82 U/L (38-126); Anion Gap 8 mmol/L; Blood Urea Nitrogen 13 mg/dL (9-20); Calcium 8.6 mg/dL (8.4-10.2); Carbon Dioxide 26 mmol/L (22-30); Chloride 101 mmol/L (98-107); Glucose 126 mg/dL (74-99); Non-African American GFR(CKD) 80 (>60 ml/min/1.73 sqM); Potassium 3.5 mmol/L (3.5-5.1); Sodium 135 mmol/L (137-145); Total Bilirubin 0.2 mg/dL (0.2-1.3); Total Protein 5.9 g/dL (6.3-8.2)
--- NOTE | 2021-06-09 05:02 | CT ---
EXAMINATION TYPE: CT brain wo con DATE OF EXAM: 06/09/2021 COMPARISON: None HISTORY: fall/pain CT DLP: 726.2 mGycm Automated exposure control for dose reduction was used. There is cerebral cortical atrophy. There is no mass effect nor midline shift. There is no sign of in tracranial hemorrhage. Calvarium is intact. There is normal aeration of the mastoid sinuses. The skul l base is intact. There is fluid level left maxillary sinus. There is soft tissue swelling and soft t issue air around the left orbit and described in the facial bone CT report. There is no evidence of i ntracranial air. There is no evidence of a skull fracture. IMPRESSION: Cerebral atrophy. No acute intracranial abnormality.
--- NOTE | 2021-06-09 05:10 | CT ---
EXAMINATION TYPE: CT facial bones wo con DATE OF EXAM: 06/09/2021 COMPARISON: None HISTORY: fall/pain CT DLP: 726.2 mGycm Automated exposure control for dose reduction was used. Images obtained from the bottom of the mandible to the top of the frontal sinuses without contrast. The mandibular ring is intact. Temporomandibular joints are intact. There is nondisplaced fracture of the left zygomatic arch. There is fluid level in the left maxillary sinus. There is fracture with co mminution of the lateral wall of the left maxillary sinus. There is blowout fracture of the floor the left bony orbit. There is some intraorbital air bubbles on the inferior aspect of the left orbit. Fr agment displacement is up to 3 mm. There is a nondisplaced fracture of the inferior lateral left bony orbit. There is nondisplaced fracture of the lateral wall of the left bony orbit. There is nondispla brittny fracture anterior wall of the left maxillary sinus. The nasal bone is intact. There is preseptal soft tissue periorbital swelling. IMPRESSION: There is tripod fracture of the left zygoma. There is blowout fracture of the floor of the left orbit with small amount of intraorbital air bubbles. There is hemorrhage in the left maxillary sinus with fluid level. There is nondisplaced fracture anterior wall of the left maxillary sinus with comminutio n.
[2021-06-09] MEDS ORDERED: NALOXONE 0.4 MG/ML 1 ML VIAL IV PRN (06:05)
[2021-06-09] MEDS ORDERED: MORPHINE SULFATE 4 MG/ML SYRINGE IV PRN (06:18)
[2021-06-09] MEDS ORDERED: ONDANSETRON 4 MG/2 ML VIAL IVP PRN (06:18)
[2021-06-09] MEDS ORDERED: ACETAMINOPHEN TAB 325 MG TAB PO PRN (06:18)
--- NOTE | 2021-06-09 06:34 | ED ---
Fall HPI - General Chief Complaint: Fall Stated Complaint: Fall Time Seen by Provider: 06/09/21 02:48 Source: patient, EMS Mode of arrival: EMS - History of Present Illness Initial Comments: This patient is a 76-year-old man who is here to be evaluated for a fall. The patient had tripped and fallen for onto the left side of his face. His does provide most of the history and states that they had arrived here earlier but he did not want to wait. They left but returns as he was still continuing have left facial pain. No loss consciousness. He did have some epistaxis but that has resolved. MD Complaint: fall -: hour(s) Fall From: standing Fall Witnessed: yes, by family Place Fall Occurred: home Loss of Consciousness: unsure Prolonged Down Time?: no Symptoms Prior to Fall: none Location: face Severity: mild Context: tripped/slipped - Related Data Home Medications Medication Instructions Recorded Confirmed Amitriptyline HCl [Elavil] 100 mg PO HS 04/12/21 06/09/21 Atorvastatin Calcium [Lipitor] 40 mg PO HS 04/12/21 06/09/21 Diltiazem HCl [Diltiazem HCl 24Hr 300 mg PO DAILY 04/12/21 06/09/21 ER (LA)] Naproxen 500 mg PO BID 04/12/21 06/09/21 Sertraline HCl [Zoloft] 150 mg PO DAILY 04/12/21 06/09/21 traMADol HCl [Ultram] 50 mg PO Q4H PRN 04/12/21 06/09/21 Allergies Allergy/AdvReac Type Severity Reaction Status Date / Time No Known Allergies Allergy Verified 06/09/21 07:19 Review of Systems ROS Statement: Those systems with pertinent positive or pertinent negative responses have been documented in the HPI. ROS Other: All systems not noted in ROS Statement are negative. Constitutional: Denies: fever, weakness Eyes: Denies: eye pain, vision change ENT: Reports: epistaxis. 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 Past Anesthesia/Blood Transfusion Reactions: No Reported Reaction Past Psychological History: Depression Smoking Status: Former smoker Past Alcohol Use History: None Reported Past Drug Use History: Marijuana - Past Family History Father Additional Family Medical History / Comment(s): of old age Mother Family Medical History: Unable to Obtain General Exam General appearance: alert, in no apparent distress Head exam: Present: other (The patient has swelling and tenderness to the left zygoma. There does appear to be palpable deformity) Eye exam: Present: normal appearance, PERRL, EOMI, periorbital swelling, periorbital tenderness. Absent: scleral icterus, conjunctival injection, nystagmus ENT exam: Present: normal oropharynx, mucous membranes moist, TM's normal bilaterally, normal external ear exam Neck exam: Present: normal inspection, full ROM. Absent: tenderness, meningismus Respiratory exam: Present: normal lung sounds bilaterally. Absent: respiratory distress, wheezes, rales, rhonchi, stridor Cardiovascular Exam: Present: regular rate, normal rhythm, normal heart sounds. Absent: systolic murmur, diastolic murmur, rubs, gallop GI/Abdominal exam: Present: soft. Absent: distended, tenderness, guarding, rebound, rigid, mass Extremities exam: Present: normal inspection, normal capillary refill. Absent: pedal edema, calf tenderness Back exam: Present: normal inspection. Absent: CVA tenderness (R), CVA tenderness (L) Neurological exam: Present: alert, CN II-XII intact. Absent: motor sensory deficit Skin exam: Present: warm, dry, intact, normal color. Absent: rash Course Vital Signs 06/09/21 06/09/21 06/09/21 02:26 04:59 06:41 Temperature 98.1 F Pulse Rate 81 81 75 Respiratory 20 16 16 Rate Blood Pressure 147/96 135/87 134/76 O2 Sat by Pulse 96 95 98 Oximetry 06/09/21 06/09/21 08:17 10:23 Temperature Pulse Rate 75 78 Respiratory 18 18 Rate Blood Pressure 137/75 139/73 O2 Sat by Pulse 97 95 Oximetry Medical Decision Making - Medical Decision Making Patient is 76-year-old man with a fall resulting in left zygoma and left orbital fractures. Antibiotics and tetanus ordered. Patient be admitted and have ENT consultation. Given the fall will be admitted under trauma and then can be switched to [facility] service tomorrow, should placement. Required. - Lab Data Result diagrams: 06/09/21 03:56 06/09/21 03:56 Lab Results 06/09/21 06/09/21 06/09/21 Range/Units 03:56 03:56 03:56 WBC 10.5 (3.8-10.6) k/uL RBC 3.74 L (4.30-5.90) m/uL Hgb 11.8 L (13.0-17.5) gm/dL Hct 35.2 L (39.0-53.0) % MCV 94.2 (80.0-100.0) fL MCH 31.6 (25.0-35.0) pg MCHC 33.5 (31.0-37.0) g/dL RDW 13.2 (11.5-15.5) % Plt Count 328 (150-450) k/uL MPV 6.8 Neutrophils % 82 % Lymphocytes % 9 % Monocytes % 5 % Eosinophils % 2 % Basophils % 0 % Neutrophils # 8.6 H (1.3-7.7) k/uL Lymphocytes # 1.0 (1.0-4.8) k/uL Monocytes # 0.5 (0-1.0) k/uL Eosinophils # 0.2 (0-0.7) k/uL Basophils # 0.0 (0-0.2) k/uL Sodium 135 L (137-145) mmol/L Potassium 3.5 (3.5-5.1) mmol/L Chloride 101 (98-107) mmol/L Carbon Dioxide 26 (22-30) mmol/L Anion Gap 8 mmol/L BUN 13 (9-20) mg/dL Creatinine 0.94 (0.66-1.25) mg/dL Est GFR (CKD-EPI)AfAm >90 (>60 ml/min/1.73 sqM) Est GFR (CKD-EPI)NonAf 80 (>60 ml/min/1.73 sqM) Glucose 126 H (74-99) mg/dL Calcium 8.6 (8.4-10.2) mg/dL Total Bilirubin 0.2 (0.2-1.3) mg/dL AST 35 (17-59) U/L ALT 26 (4-49) U/L Alkaline Phosphatase 82 (38-126) U/L Ammonia (<30) umol/L Total Protein 5.9 L (6.3-8.2) g/dL Albumin 3.3 L (3.5-5.0) g/dL Urine Opiates Screen Not Detected (NotDetected) Ur Oxycodone Screen Not Detected (NotDetected) Urine Methadone Screen Not Detected (NotDetected) Ur Propoxyphene Screen Not Detected (NotDetected) Ur Barbiturates Screen Not Detected (NotDetected) U Tricyclic Antidepress Detected H (NotDetected) Ur Phencyclidine Scrn Not Detected (NotDetected) Ur Amphetamines Screen Not Detected (NotDetected) U Methamphetamines Scrn Not Detected (NotDetected) U Benzodiazepines Scrn Not Detected (NotDetected) Urine Cocaine Screen Not Detected (NotDetected) U Marijuana (THC) Screen Detected H (NotDetected) 06/09/21 Range/Units 03:56 WBC (3.8-10.6) k/uL RBC (4.30-5.90) m/uL Hgb (13.0-17.5) gm/dL Hct (39.0-53.0) % MCV (80.0-100.0) fL MCH (25.0-35.0) pg MCHC (31.0-37.0) g/dL RDW (11.5-15.5) % Plt Count (150-450) k/uL MPV Neutrophils % % Lymphocytes % % Monocytes % % Eosinophils % % Basophils % % Neutrophils # (1.3-7.7) k/uL Lymphocytes # (1.0-4.8) k/uL Monocytes # (0-1.0) k/uL Eosinophils # (0-0.7) k/uL Basophils # (0-0.2) k/uL Sodium (137-145) mmol/L Potassium (3.5-5.1) mmol/L Chloride (98-107) mmol/L Carbon Dioxide (22-30) mmol/L Anion Gap mmol/L BUN (9-20) mg/dL Creatinine (0.66-1.25) mg/dL Est GFR (CKD-EPI)AfAm (>60 ml/min/1.73 sqM) Est GFR (CKD-EPI)NonAf (>60 ml/min/1.73 sqM) Glucose (74-99) mg/dL Calcium (8.4-10.2) mg/dL Total Bilirubin (0.2-1.3) mg/dL AST (17-59) U/L ALT (4-49) U/L Alkaline Phosphatase (38-126) U/L Ammonia <9 (<30) umol/L Total Protein (6.3-8.2) g/dL Albumin (3.5-5.0) g/dL Urine Opiates Screen (NotDetected) Ur Oxycodone Screen (NotDetected) Urine Methadone Screen (NotDetected) Ur Propoxyphene Screen (NotDetected) Ur Barbiturates Screen (NotDetected) U Tricyclic Antidepress (NotDetected) Ur Phencyclidine Scrn (NotDetected) Ur Amphetamines Screen (NotDetected) U Methamphetamines Scrn (NotDetected) U Benzodiazepines Scrn (NotDetected) Urine Cocaine Screen (NotDetected) U Marijuana (THC) Screen (NotDetected) Disposition Clinical Impression: Fall, Zygomatic fracture, left side, initial encounter for closed fracture, Left orbit fracture Disposition: ADMITTED IP TO THIS HOSP Condition: Fair
[2021-06-09] MEDS: SODIUM CHLORIDE 0.9% 1,000 ML IV SCH ×2 (06:37→21:51)
[2021-06-09] MEDS: HYDROcodone/APAP 5-325MG 1 EACH TAB PO PRN ×3 (08:24→21:50)
[2021-06-09 10:03] LABS: Amphetamine Screen,Urine Not Detected (NotDetected); Barbiturate Screen,Urine Not Detected (NotDetected); Benzodiazepines Screen,Urine Not Detected (NotDetected); Cocaine Screen,Urine Not Detected (NotDetected); Methadone Screen, Urine Not Detected (NotDetected); Opiate Screen,Urine Not Detected (NotDetected); Oxycodone Screen, Urine Not Detected (NotDetected); Phencyclidine Screen,Urine Not Detected (NotDetected); Tricyclic Antidepressant,Urine Detected (NotDetected); Urn Cannabinoid Scrn Detected (NotDetected)
[2021-06-09] MEDS: SERTRALINE 50 MG TAB PO SCH (10:30)
[2021-06-09] MEDS: DILTIAZEM CD 300 MG CAP.ER.24H PO SCH (10:30)
--- NOTE | 2021-06-09 11:03 | US ---
EXAMINATION TYPE: US carotid duplex BILAT DATE OF EXAM: 06/09/2021 COMPARISON: NONE CLINICAL HISTORY: dizziness. EXAM MEASUREMENTS: RIGHT: Peak Systolic Velocity (PSV) cm/sec ----- Right CCA: 112 ----- Right ICA: 119 ----- Right ECA: 164 ICA/CCA ratio: 1.06 RIGHT: End Diastole cm/sec ----- Right CCA: 29.5 ----- Right ICA: 38.9 ----- Right ECA: 17.2 LEFT: Peak Systolic Velocity (PSV) cm/sec ----- Left CCA: 112 ----- Left ICA: 94.4 ----- Left ECA: 188 ICA/CCA ratio: 0.84 LEFT: End Diastole cm/sec ----- Left CCA: 21.5 ----- Left ICA: 24.9 ----- Left ECA: 32.5 VERTEBRALS (direction of flow): Right Vertebral: Antegrade Left Vertebral: Antegrade Rhythm: Normal Grayscale, color Doppler, spectral Doppler imaging performed the carotid arteries. Waveform analysis does not show significant stenosis of the internal carotid arteries. No elevated velocities. Mild siena que noted at the carotid bifurcations. IMPRESSION: No hemodynamic significant stenosis of the proximal internal carotid arteries by Doppler criteria, an indirect measurement of carotid stenosis Criteria for Assigning % of Stenosis / Diameter reduction (Estimation based on the indirect measurements of the internal carotid artery velocities (ICA PSV). 1. Normal (no stenosis)=ICA PSV < 125 cm/s: ratio < 2.0: ICA EDV<40 cm/s. 2. Less than 50% stenosis=ICA PSV < 125 cm/s: ratio < 2.0: ICA EDV<40 cm/s. 3. 50 to 69% stenosis=ICA PSV of 125 to 230 cm/s: ration 2.0 ? 4.0: ICA EDV 40-100 cm/s. 4. Greater than 70% stenosis to near occlusion= ICA PSV > 230 cm/s: ratio > 4.0: ICA EDV > 100 cm/s. 5. Near occlusion= ICA PSV velocities may be low or undetectable: variable ratio and ICA EDV. 6. Total occlusion=unable to detect flow.
--- NOTE | 2021-06-09 13:24 | ECHOF ---
Referral Reason:Syncope MEASUREMENTS -------- HEIGHT: 180.3 cm WEIGHT: 71.7 kg BP: RVIDd: 3.1 cm (< 3.3) IVSd: 1.0 cm (0.6 - 1.1) LVIDd: 4.3 cm (3.9 - 5.3) LVPWd: 1.4 cm (0.6 - 1.1) IVSs: 1.9 cm LVIDs: 1.7 cm LVPWs: 2.1 cm Ao Diam: 3.8 cm (2.0 - 3.7) AV Cusp: 2.0 cm (1.5 - 2.6) LA Diam: 3.3 cm (2.7 - 3.8) MV EXCURSION: 10.412 mm (> 18.000) MV EF SLOPE: 99 mm/s (70 - 150) EPSS: 0.8 cm MV E Fawad: 0.94 m/s MV DecT: 198 ms MV A Fawad: 0.95 m/s MV E/A Ratio: 0.99 RAP: 5.00 mmHg RVSP: 23.22 mmHg FINDINGS -------- This was a technically good study. The left ventricular size is normal. Left ventricular wall thickness is normal. Overall left vent ricular systolic function is normal with, an EF between 55 - 60 %. The diastolic filling pattern is normal for the age of the patient 12.62. The right ventricle is normal in size. The left atrial size is normal. Normal LA size by volume 22+/-6 ml/m2. The right atrial size is normal. The aortic valve is trileaflet and appears structurally normal. The mitral valve is normal. Mild mitral regurgitation is present. The tricuspid valve appears structurally normal. Mild tricuspid regurgitation present. Right vent ricular systolic pressure is normal at < 35 mmHg. There is no pulmonic regurgitation present. The aortic root size is normal. IVC Not well visulized. There is a small, generalized pericardial effusion present. CONCLUSIONS -------- 1. The left ventricular size is normal. 2. Left ventricular wall thickness is normal. 3. Overall left ventricular systolic function is normal with, an EF between 55 - 60 %. 4. The diastolic filling pattern is normal for the age of the patient 12.62 5. Mild mitral regurgitation is present. 6. Mild tricuspid regurgitation present. 7. There is a small, generalized pericardial effusion present. PROJECT ADMINISTRATIVE ASSISTANT: Jolynn Suero RDCS
--- NOTE | 2021-06-09 14:26 | P.GSHP ---
History of Present Illness H&P Date: 06/09/21 CHIEF COMPLAINT: Fall HISTORY OF PRESENT ILLNESS: This is a 76-year-old male who presented to the ER after a fall and hitting the left side of his face. He is complaining of left- sided facial pain. He did have some epistaxis that resolved. Patient had 2 falls. It is unclear why he fell. There is concerns for possible syncopal episode. Computed tomography scan of the face had shown tripod fracture of the left zygoma. There is a blowout fracture of the floor of the left orbit with small amount of intraorbital air bubbles. There is hemorrhage in the left maxillary sinus with fluid level. There is nondisplaced fracture anterior wall the left maxillary sinus with comminution. ENT service is on consult. Pain patient's pain is currently controlled. Patient was seen and examined in the ER with Dr. saleh. Patient does take naproxen twice a day, otherwise he is not on any anticoagulation. PAST MEDICAL HISTORY: TIA, GERD, hyperlipidemia, hypertension, memory impairment, rheumatoid arthritis PAST SURGICAL HISTORY: adenoidectomy, Tonsillectomy, laminectomy, colonoscopy MEDICATIONS: See list. ALLERGIES: See list. SOCIAL HISTORY: No illicit drug use. REVIEW OF SYSTEMS: CONSTITUTIONAL: Denies fever or chills. HEENT: Denies blurred vision, vision changes, or eye pain. Denies hemoptysis CARDIOVASCULAR: Denies chest pain or pressure. RESPIRATORY: No shortness of breath. GASTROINTESTINAL: Denies any nausea vomiting. HEMATOLOGIC: Denies bleeding disorders. GENITOURINARY: Denies any blood in urine or increased urinary frequency. SKIN: Denies pruitis. Denies rash. PHYSICAL EXAM: VITAL SIGNS: Reviewed GENERAL: Well-developed in no acute distress. HEENT: No sclera icterus. Moist buccal mucosa. Head is normocephalic. No nasal drainage. Mild bruising noted around the left orbit ABDOMEN: Soft. Nondistended. Nontender NEUROLOGIC: Awake and alert. Cranial nerves II through XII grossly intact. LABORATORY DATA: WBC is 10.5 Hgb 11.8 platelets 328 Sodium 135 potassium 3.5 BUN 13 creatinine 0.94 glucose 126 LFTs normal Ammonia level less than 9 Drug screen positive for tricyclic antidepressants and marijuana IMAGING: Computed tomography scan of the face had shown tripod fracture of the left zygoma. There is a blowout fracture of the floor of the left orbit with small amount of intraorbital air bubbles. There is hemorrhage in the left maxillary sinus with fluid level. There is nondisplaced fracture anterior wall the left maxillary sinus with comminution. Computed tomography scan of brain shows cerebral atrophy. No acute intracranial abnormality. ASSESSMENT: 1. Fall with trauma to face 2. Fracture of the left zygoma and blowout fracture of the floor the left orbit with small amount of intraorbital air bubbles 3. Possible syncopal episode PLAN: -Consult placed for ENT service for facial fractures -Diet per ENT service -Consult placed for medical service for medical management -Continue pain control -Continue supportive care Physician Spinning Frame Tender note has been reviewed by physician. Signing provider agrees with the documented findings, assessment, and plan of care. 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 Past Anesthesia/Blood Transfusion Reactions: No Reported Reaction Past Psychological History: Depression Smoking Status: Former smoker Past Alcohol Use History: None Reported Past Drug Use History: Marijuana - Past Family History Father Additional Family Medical History / Comment(s): of old age Mother Family Medical History: Unable to Obtain Medications and Allergies Home Medications Medication Instructions Recorded Confirmed Type Amitriptyline HCl [Elavil] 100 mg PO HS 04/12/21 06/09/21 History Atorvastatin Calcium [Lipitor] 40 mg PO HS 04/12/21 06/09/21 History Diltiazem HCl [Diltiazem HCl 24Hr 300 mg PO DAILY 04/12/21 06/09/21 History [place] ([place])] Naproxen 500 mg PO BID 04/12/21 06/09/21 History Sertraline HCl [Zoloft] 150 mg PO DAILY 04/12/21 06/09/21 History traMADol HCl [Ultram] 50 mg PO Q4H PRN 04/12/21 06/09/21 History Allergies Allergy/AdvReac Type Severity Reaction Status Date / Time No Known Allergies Allergy Verified 06/09/21 07:19 Surgical - Exam Vital Signs Temp Pulse Resp BP Pulse Ox 98.1 F 81 20 147/96 96 06/09/21 02:26 06/09/21 02:26 06/09/21 02:26 06/09/21 02:26 06/09/21 02:26 Results - Labs 06/09/21 03:56 06/09/21 03:56 Abnormal Lab Results - Last 24 Hours (Table) 06/09/21 06/09/21 06/09/21 Range/Units 03:56 03:56 03:56 RBC 3.74 L (4.30-5.90) m/uL Hgb 11.8 L (13.0-17.5) gm/dL Hct 35.2 L (39.0-53.0) % Neutrophils # 8.6 H (1.3-7.7) k/uL Sodium 135 L (137-145) mmol/L Glucose 126 H (74-99) mg/dL Total Protein 5.9 L (6.3-8.2) g/dL Albumin 3.3 L (3.5-5.0) g/dL U Tricyclic Antidepress Detected H (NotDetected) U Marijuana (THC) Screen Detected H (NotDetected) Diabetes panel 06/09/21 Range/Units 03:56 Sodium 135 L (137-145) mmol/L Potassium 3.5 (3.5-5.1) mmol/L Chloride 101 (98-107) mmol/L Carbon Dioxide 26 (22-30) mmol/L BUN 13 (9-20) mg/dL Creatinine 0.94 (0.66-1.25) mg/dL Glucose 126 H (74-99) mg/dL Calcium 8.6 (8.4-10.2) mg/dL AST 35 (17-59) U/L ALT 26 (4-49) U/L Alkaline Phosphatase 82 (38-126) U/L Total Protein 5.9 L (6.3-8.2) g/dL Albumin 3.3 L (3.5-5.0) g/dL Calcium panel 06/09/21 Range/Units 03:56 Calcium 8.6 (8.4-10.2) mg/dL Albumin 3.3 L (3.5-5.0) g/dL Pituitary panel 06/09/21 Range/Units 03:56 Sodium 135 L (137-145) mmol/L Potassium 3.5 (3.5-5.1) mmol/L Chloride 101 (98-107) mmol/L Carbon Dioxide 26 (22-30) mmol/L BUN 13 (9-20) mg/dL Creatinine 0.94 (0.66-1.25) mg/dL Glucose 126 H (74-99) mg/dL Calcium 8.6 (8.4-10.2) mg/dL Adrenal panel 06/09/21 Range/Units 03:56 Sodium 135 L (137-145) mmol/L Potassium 3.5 (3.5-5.1) mmol/L Chloride 101 (98-107) mmol/L Carbon Dioxide 26 (22-30) mmol/L BUN 13 (9-20) mg/dL Creatinine 0.94 (0.66-1.25) mg/dL Glucose 126 H (74-99) mg/dL Calcium 8.6 (8.4-10.2) mg/dL Total Bilirubin 0.2 (0.2-1.3) mg/dL AST 35 (17-59) U/L ALT 26 (4-49) U/L Alkaline Phosphatase 82 (38-126) U/L Total Protein 5.9 L (6.3-8.2) g/dL Albumin 3.3 L (3.5-5.0) g/dL
[2021-06-09] MEDS: ATORVASTATIN 40 MG TAB PO SCH (21:50)
[2021-06-09] MEDS: AMITRIPTYLINE HCL 50 MG TAB PO SCH (21:50)
[2021-06-10 04:54] LABS: HCT 34.6 % (39.0-53.0); HGB 11.4 gm/dL (13.0-17.5); MCH 31.1 pg (25.0-35.0); MCHC 32.9 g/dL (31.0-37.0); MCV 94.5 fL (80.0-100.0); Mean Platelet Volume 6.8; Platelet Count 330 k/uL (150-450); RBC 3.66 m/uL (4.30-5.90); RDW 13.2 % (11.5-15.5); WBC 7.3 k/uL (3.8-10.6)
[2021-06-10 05:10] LABS: African American GFR (CKD) >90 (>60 ml/min/1.73 sqM); Anion Gap 5 mmol/L; Blood Urea Nitrogen 8 mg/dL (9-20); Calcium 8.4 mg/dL (8.4-10.2); Carbon Dioxide 26 mmol/L (22-30); Chloride 105 mmol/L (98-107); Glucose 97 mg/dL (74-99); Non-African American GFR(CKD) >90 (>60 ml/min/1.73 sqM); Potassium 3.9 mmol/L (3.5-5.1); Sodium 136 mmol/L (137-145)
[2021-06-10] MEDS: DILTIAZEM CD 300 MG CAP.ER.24H PO SCH (07:40)
[2021-06-10] MEDS: SODIUM CHLORIDE 0.9% 1,000 ML IV SCH (07:40)
[2021-06-10] MEDS: SERTRALINE 50 MG TAB PO SCH (07:40)
[2021-06-10] MEDS: HYDROcodone/APAP 5-325MG 1 EACH TAB PO PRN ×3 (07:45→19:47)
--- NOTE | 2021-06-10 08:46 | P.CONS ---
History of Present Illness - Reason for Consult Requesting physician: Kilo Calixto - Chief Complaint Fall with facial trauma - History of Present Illness The patient is sent for a white male who is been having dizziness episodes over the last several weeks. He states 2 days ago he caught himself before having a fall. However on the day of admission he fell and landed on his face. Patient has zygomatic fracture and is admitted to trauma service. No element of chest pain or palpitations. Echo is nominal Carotid Doppler are nominal. We will ask neurology to see. 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 Past Anesthesia/Blood Transfusion Reactions: No Reported Reaction Past Psychological History: Depression Smoking Status: Former smoker Past Alcohol Use History: None Reported Past Drug Use History: Marijuana - Past Family History Father Additional Family Medical History / Comment(s): of old age Mother Family Medical History: Unable to Obtain Medications and Allergies Home Medications Medication Instructions Recorded Confirmed Type Amitriptyline HCl [Elavil] 100 mg PO HS 04/12/21 06/09/21 History Atorvastatin Calcium [Lipitor] 40 mg PO HS 04/12/21 06/09/21 History Diltiazem HCl [Diltiazem HCl 24Hr 300 mg PO DAILY 04/12/21 06/09/21 History ER ([place])] Naproxen 500 mg PO BID 04/12/21 06/09/21 History Sertraline HCl [Zoloft] 150 mg PO DAILY 04/12/21 06/09/21 History traMADol HCl [Ultram] 50 mg PO Q4H PRN 04/12/21 06/09/21 History Allergies Allergy/AdvReac Type Severity Reaction Status Date / Time No Known Allergies Allergy Verified 06/09/21 07:19 Physical Exam Vitals: Vital Signs Temp Pulse Pulse Resp BP BP Pulse Ox 06/10/21 07:21 98.2 F 82 18 160/63 98 06/10/21 02:00 97.9 F 89 18 137/75 96 06/09/21 20:00 98.5 F 82 18 161/77 95 06/09/21 15:39 97.5 F L 73 20 139/73 97 06/09/21 12:58 98.3 F 76 15 139/73 06/09/21 10:23 78 18 139/73 95 Intake and Output 06/09/21 06/10/21 06/10/21 22:59 06:59 14:59 Intake Total 995 Output Total 400 Balance 595 Intake: Intake, IV Titration 875 Amount Sodium Chloride 0.9% 1, 825 000 ml @ 75 mls/hr IV . [id number] [facility] Rx#:[id number] ceFAZolin 1,000 mg In 50 Sodium Chloride 0.9% 50 ml @ 100 mls/hr IVPB Q8HR [facility] Rx#:[id number] Oral 120 Output: Urine 400 - Constitutional General appearance: cooperative, no acute distress - EENT Facial trauma to the left zygomatic area Eyes: EOMI - Neck Neck: no lymphadenopathy - Respiratory Respiratory: bilateral: CTA - Cardiovascular Rhythm: regular Heart sounds: normal: S1, S2 Abnormal Heart Sounds: no S3 Gallop - Gastrointestinal General gastrointestinal: soft, no tenderness - Integumentary Integumentary: no cellulitis Results CBC & Chem 7: 06/10/21 04:28 06/10/21 04:28 Labs: Abnormal Lab Results - Last 24 Hours (Table) 06/09/21 06/10/21 06/10/21 Range/Units 03:56 04:28 04:28 RBC 3.66 L (4.30-5.90) m/uL Hgb 11.4 L (13.0-17.5) gm/dL Hct 34.6 L (39.0-53.0) % Sodium 136 L (137-145) mmol/L BUN 8 L (9-20) mg/dL U Tricyclic Antidepress Detected H (NotDetected) U Marijuana (THC) Screen Detected H (NotDetected) Assessment and Plan (1) Dizziness Current Visit: Yes Status: Acute Code(s): R42 - DIZZINESS AND GIDDINESS SNOMED Code(s): 124783543 (2) Pre-syncope Current Visit: Yes Status: Acute Code(s): R55 - SYNCOPE AND COLLAPSE SNOMED Code(s): 397116768 (3) Fall Current Visit: Yes Status: Acute Code(s): W19.XXXA - UNSPECIFIED FALL, INITIAL ENCOUNTER SNOMED Code(s): 2294508 (4) Left orbit fracture Current Visit: Yes Status: Acute Code(s): S02.85XA - FRACTURE OF ORBIT, UNSPECIFIED, INIT SNOMED Code(s): 46914184 (5) Zygomatic fracture, left side, initial encounter for closed fracture Current Visit: Yes Status: Acute Code(s): S02.40FA - ZYGOMATIC FRACTURE, LEFT SIDE, INIT SNOMED Code(s): 01625670686718482 Plan: Start washing machine operator. Ask neurology to see the patient. We'll continue follow from a medical perspective. Question element of neurogenic syncopal
--- NOTE | 2021-06-10 11:04 | P.PN ---
Progress Note - Text Progress Note Date: 06/10/21 Patient still has some complaints of some left facial pain related to his trauma. His ecchymosis around his left eye room in stable. On exam vital signs are stable. Patient is not in any distress. Left eye swelling is improved. We're waiting neurology and ENT input. Patient may be discharged home later today after being seen by neurology and ENT.
--- NOTE | 2021-06-10 11:41 | P.CNNES ---
History of Present Illness Consult date: 06/10/21 Requesting physician: Robin Gallagher Reason for Consult: syncope? History of Present Illness: This is a 73-year-old gentleman with medical history chronic vertigo, hypertension, hyperlipidemia, Chronic back pain s/p Laminectomy of L5-S2 who presented to the emergency department on 06/09/2021 for a fall. Neurology is consulted for questionable syncope.The patient tripped and fell on the left side of his face. Patient states that he has chronic dizziness and it is intermittent to movement and resides with resting. He said that for past 1-2 days he has intermittent episode of dizziness when he went from lying to stand ing position and felt the room is spinning around him. He had recent episode at his friend house and result fell but did not lose consciousness and denies any other neurological deficits. Then yesterday early in the AM (just past mid- night) he woke up from bed to use the bathroom and he felt dizzy while walking and fell and hit the paper shredder on left side of face. He denies any loss of consciousness, jerking of extremities, urinary or bowel incontinence or tongue bite or soreness. Patient denies any focal weakness, numbness, visual disturbance, swallowing or getting his words out. He denies of any chest pain or palpation associated with it. He denies tripping. He denies any ringing of ears but said he does have hearing loss and is suppose to get hearing aids. He denies following-up with ENT but think seen last about one year ago. He denies history of seizure. Regarding stroke or TIA, there is question episode about 7 years ago he was dizzy, nausea and felt disoriented and was told by physician that it possibly TIA. Some of the workup in the hospital consisted of: Initial vital signs: Blood pressure of 147/96, heart rate of 81, respiratory of 20, temperature of 98.1 Fahrenheit oral and pulse ox of 96% room air. CT of the head is reported as cerebral atrophy. No acute intracranial abnormality. I personally reviewed the CT of the head there is no acute or subacute ischemia dose appreciable. There is no interpretable hemorrhage. CT of the face is reported as there is a tripod fracture of the left zygoma. There is a bone out fracture of the floor of the left orbit with a small amount of intraorbital air bubble. There is hemorrhage in the left maxillary sinus with a fluid level. There is no nondisplaced fracture anterior wall of left maxillary sinus with comminution. Carotid duplex is reported as no hemodynamic significant stenosis of the proximal internal carotid arteries by Doppler criteria, and in direct measurement of carotid stenosis. 2-D echo was reported as left ventricle wall thickness is normal. Ejection fraction of 55-60%. White blood cell is 10.5 thousand. The hemoglobin is 11.8 hematocrit is 35.2. Sodium is 135, creatinine is 0.94, calcium is 8.6, AST 35, ALTs 26, ammonia is less than 9. Serum glucose of 126. Urine drug screen is positive for tricyclic and marijuana. Neal virus PCR was not detected. Review of Systems Review of system: The 12 point system was reviewed and apparent positive and negative per HPI. 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 Past Anesthesia/Blood Transfusion Reactions: No Reported Reaction Past Psychological History: Depression Smoking Status: Former smoker Past Alcohol Use History: None Reported Past Drug Use History: Marijuana - Past Family History Father Additional Family Medical History / Comment(s): of old age Mother Family Medical History: Unable to Obtain Medications and Allergies Home Medications Medication Instructions Recorded Confirmed Type Amitriptyline HCl [Elavil] 100 mg PO HS 04/12/21 06/09/21 History Atorvastatin Calcium [Lipitor] 40 mg PO HS 04/12/21 06/09/21 History Diltiazem HCl [Diltiazem HCl 24Hr 300 mg PO DAILY 04/12/21 06/09/21 History [place] ([place])] Naproxen 500 mg PO BID 04/12/21 06/09/21 History Sertraline HCl [Zoloft] 150 mg PO DAILY 04/12/21 06/09/21 History traMADol HCl [Ultram] 50 mg PO Q4H PRN 04/12/21 06/09/21 History Allergies Allergy/AdvReac Type Severity Reaction Status Date / Time No Known Allergies Allergy Verified 06/09/21 07:19 Physical Examination - Vital Signs Vital Signs: Vital Signs Temp Pulse Pulse Resp BP BP Pulse Ox 06/10/21 08:48 18 06/10/21 07:21 98.2 F 82 18 160/63 98 06/10/21 02:00 97.9 F 89 18 137/75 96 06/09/21 20:00 98.5 F 82 18 161/77 95 06/09/21 15:39 97.5 F L 73 20 139/73 97 06/09/21 12:58 98.3 F 76 15 139/73 06/09/21 10:23 78 18 139/73 95 Intake and Output 06/09/21 06/10/21 06/10/21 22:59 06:59 14:59 Intake Total 995 Output Total 400 Balance 595 Intake: Intake, IV Titration 875 Amount Sodium Chloride 0.9% 1, 825 000 ml @ 75 mls/hr IV . [id number] [facility] Rx#:[id number] ceFAZolin 1,000 mg In 50 Sodium Chloride 0.9% 50 ml @ 100 mls/hr IVPB Q8HR [facility] Rx#:[id number] Oral 120 Output: Urine 400 GENERAL: The patient is lying in bed and is not in acute distress. HENT: Echymosis and some hematoma around the left periorbital and left side of eye there is echymosis. CHEST: The heart rate is regular rate rhythm. No murmurs to auscultation. No carotid bruit bilaterally. LUNG: Clear to auscultation bilaterally no wheezing noted throughout. Not labored breathing. ABDOMEN/GI: Bowel sounds present in all 4 quadrants. No tenderness to palpation throughout. NEUROLOGICAL: Higher mental function: The patient is awake, alert, oriented to self, place and time. Patient is following commands. No aphasia and no neglect. Cranial nerves: The pupils are round, equal and reactive to light and accommodation. Visual rivera are full to confrontation throughout. Extraocular movement is intact no nystagmus is noted. Facial sensation is normal to touch throughout. The facial strength is normal throughout. Hearing is moderately bilaterally to hand rub. Tongue is midline and moved [id number] without any difficulty. No dysarthria is noted. Shoulder shrug is normal bilaterally. Motor: The strength is 5 over 5 throughout. Normal tone and bulk. Cerebellum: Normal finger to nose bilaterally. Sensation: Sensation is normal to touch throughout. Reflexes (right/left): 2+ throughout except ankles are 1+. Plantars are downgoing bilaterally. Results - Laboratory Findings CBC and BMP: 06/10/21 04:28 06/10/21 04:28 Abnormal Lab Findings: Abnormal Labs 06/09/21 06/09/21 06/09/21 03:56 03:56 03:56 RBC 3.74 L Hgb 11.8 L Hct 35.2 L Neutrophils # 8.6 H Sodium 135 L BUN Glucose 126 H Total Protein 5.9 L Albumin 3.3 L U Tricyclic Antidepress Detected H U Marijuana (THC) Screen Detected H 06/10/21 06/10/21 04:28 04:28 RBC 3.66 L Hgb 11.4 L Hct 34.6 L Neutrophils # Sodium 136 L BUN 8 L Glucose Total Protein Albumin U Tricyclic Antidepress U Marijuana (THC) Screen Assessment and Plan Assessment: Two episodes of falls associated with vertigo. No loss of consciousness or any seizure-like activity. Chronic recurrent intermittent vertigo (seems with position) Left facial fracture over the left orbit left maxilla due to fall History of ?TIA (about 7 years ago with dizziness, nausea and disoriented) Hypertension Memory impairment History of chronic back pain status post laminectomy of L5 to S2 Hyperlipidemia Plan: Ordered Orthostatic vitals. If Orthostatic is negative, consider tilt table test and can be done as outpatient. Recommend MRI Brain and patient would like to get it as outpatient since wants to go home for the holidays. Placed on every 4 hours neuro checks PT and OT are consulted Dr. Kessler is consulted for ENT. General surgery is the primary on team. We'll defer the rest of the medical management to the primary team Patient was notified that he needs to follow-up with ENT as outpatient. Patient was instructed to use his walker all the time (he said he has one and will start using it). The plan is discussed with the patient and his nurse. Thank You for the Consultation. Ronnell Rodriguez M.D. Neuro-hospitalist Time with Patient: Greater than 30
[2021-06-10] MEDS: ATORVASTATIN 40 MG TAB PO SCH (19:47)
[2021-06-10] MEDS: AMITRIPTYLINE HCL 50 MG TAB PO SCH (19:47)
[2021-06-11] MEDS: HYDROcodone/APAP 5-325MG 1 EACH TAB PO PRN ×2 (00:08→10:01)
[2021-06-11] MEDS: SODIUM CHLORIDE 0.9% 1,000 ML IV SCH ×2 (00:55→13:43)
[2021-06-11] MEDS: DILTIAZEM CD 300 MG CAP.ER.24H PO SCH (09:00)
[2021-06-11] MEDS: SERTRALINE 50 MG TAB PO SCH (09:57)
[2021-06-11] MEDS ORDERED: DILTIAZEM CD 240 MG CAP.ER.24H PO SCH (10:00)
--- NOTE | 2021-06-11 10:28 | P.CRDCN ---
History of Present Illness History of present illness: HISTORY OF PRESENTING ILLNESS This is a pleasant 76-year-old male past medical history significant for hypertension, dyslipidemia, vertigo, TIA and former nicotine dependence. He denies prior history of coronary artery disease and does not follow in the office with a fish liver sorter. We have been asked to see in consultation for orthostatic changes. He presented to the hospital after suffering a fall. He states this happens to him frequently sometimes as he is walking other times with position changes. Specifically on this occasion he got up to use the bathroom in the middle of the night around 1 AM and as he was walking he started feeling the room spinning and he fell forward striking his head on a newspaper shredder. He denies loss of consciousness. Unfortunately had a tripod fracture of the left zygoma. He has been evaluated by surgery and neurology. Orthostat ic vital signs obtained reveal supine blood pressure 160/74 and standing blood pressure of 127/69. Patient denies feeling symptomatic at the time. Telemetry tracings have been unremarkable for an arrhythmia. EKG reveals sinus rhythm with nonspecific ST abnormalities. Laboratory reviewed, WBC 7.3, hemoglobin 11.4, platelets 330, sodium 136, potassium 3.9, creatinine 0.7. Current daily cardiac medications include diltiazem 300 mg daily. Echocardiogram obtained on this admission revealed preserved LV systolic function with ejection fraction 55-60% with mild MR, mild TR and small generalized pericardial effusion. REVIEW OF SYSTEMS At the time of my exam: CONSTITUTIONAL: Denies fever or chills. CARDIOVASCULAR: Denies chest pain, shortness of breath, orthopnea, PND or palpitations. RESPIRATORY: Denies cough. GASTROINTESTINAL: Denies abdominal pain, diarrhea, constipation, nausea or vom iting. MUSCULOSKELETAL: Denies myalgias. NEUROLOGIC: Denies numbness, tingling, headache or weakness. ENDOCRINE: Denies fatigue, weight change, polydipsia or polyurina. GENITOURINARY: Denies burning, hematuria or urgency with micturation. HEMATOLOGIC: Denies history of anemia or bleeding. PHYSICAL EXAMINATION Blood pressure 160/72 heart rate 79 afebrile and maintaining oxygen saturation on room air. CONSTITUTIONAL: No apparent distress. HEENT: Head is normocephalic. Pupils are equal, round. Sclerae anicteric. Mucous membranes of the mouth are moist. No JVD. No carotid bruit. Ecchymosis noted over the left eye. CHEST EXAMINATION: Lungs are clear to auscultation. No chest wall tenderness is noted on palpation or with deep breathing. HEART EXAMINATION: Regular rate and rhythm. S1, S2 heard. No murmurs, gallops or rub. ABDOMEN: Soft, nontender. EXTREMITIES: 2+ peripheral pulses, no lower extremity edema and no calf tenderness. NEUROLOGIC EXAMINATION: Patient is awake, alert and oriented x3. ASSESSMENT Fall Orthostatic changes Hypertension History of vertigo PLAN Decrease the dose of Elavil as it can potentiate orthostatic changes. Decrease Cardizem to 240 mg daily. Add lisinopril 5 mg at bedtime. Initiate small dose of midodrine 5 mg 3 times a day. Discussed with the patient he may have some hypertension with the midodrine. Recommend outpatient event monitor. Follow-up in the office with Dr. Resendez next week. Thank you kindly for this consultation. Nurse Practitioner note has been reviewed, I agree with a documented findings and plan of care. Patient was seen and examined. 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 Past Anesthesia/Blood Transfusion Reactions: No Reported Reaction Past Psychological History: Depression Smoking Status: Former smoker Past Alcohol Use History: None Reported Past Drug Use History: Marijuana - Past Family History Father Additional Family Medical History / Comment(s): of old age Mother Family Medical History: Unable to Obtain Medications and Allergies Home Medications Medication Instructions Recorded Confirmed Type Amitriptyline HCl [Elavil] 100 mg PO HS 04/12/21 06/09/21 History Atorvastatin Calcium [Lipitor] 40 mg PO HS 04/12/21 06/09/21 History Diltiazem HCl [Diltiazem HCl 24Hr 300 mg PO DAILY 04/12/21 06/09/21 History ER (LA)] Naproxen 500 mg PO BID 04/12/21 06/09/21 History Sertraline HCl [Zoloft] 150 mg PO DAILY 04/12/21 06/09/21 History traMADol HCl [Ultram] 50 mg PO Q4H PRN 04/12/21 06/09/21 History Allergies Allergy/AdvReac Type Severity Reaction Status Date / Time No Known Allergies Allergy Verified 06/09/21 07:19 Physical Exam Vitals: Vital Signs Temp Pulse Resp BP BP BP BP 06/11/21 04:39 97.8 F 79 20 160/72 06/10/21 20:00 98.6 F 89 20 165/77 06/10/21 15:33 98.4 F 76 18 177/83 06/10/21 13:21 98.1 F 87 17 171/79 06/10/21 10:54 91 127/69 06/10/21 10:53 82 163/64 06/10/21 10:52 98.2 F 80 18 160/74 Pulse Ox 06/11/21 04:39 97 06/10/21 20:00 97 06/10/21 15:33 97 06/10/21 13:21 98 06/10/21 10:54 98 06/10/21 10:53 97 06/10/21 10:52 97 Intake and Output 06/10/21 06/11/21 06/11/21 22:59 06:59 14:59 Intake Total 150 100 Balance 150 100 Intake: Intake, IV Titration 150 Amount Sodium Chloride 0.9% 1, 150 000 ml @ 75 mls/hr IV . [id number] [facility] Rx#:[id number] Oral 100 Other: # Voids 1 Results 06/10/21 04:28 06/10/21 04:28 Current Medications Generic Name Dose Route Start Last Admin Trade Name Freq PRN Reason Stop Dose Admin Acetaminophen 650 mg 06/09/21 06:18 Acetaminophen Tab 325 Mg Tab PO Q6HR PRN Mild Pain or Fever > 100.5 Hydrocodone Bitart/Acetaminophen 1 each 06/09/21 06:18 06/11/21 10:01 Hydrocodone/Apap 5-325mg 1 Each Tab PO 1 each Q4HR PRN Administration Moderate Pain Amitriptyline HCl 50 mg 06/11/21 21:00 Amitriptyline Hcl 50 Mg Tab PO HS [facility]IDA Atorvastatin Calcium 40 mg 06/09/21 21:00 06/10/21 19:47 Atorvastatin 40 Mg Tab PO 40 mg HS [facility] Administration Diltiazem HCl 240 mg 06/11/21 10:00 06/11/21 10:01 Diltiazem Cd 240 Mg Cap.Er.24h PO 240 mg DAILY SHAHIDA Administration Sodium Chloride 1,000 mls @ 75 mls/hr 06/09/21 06:30 06/11/21 00:55 Saline 0.9% IV 75 mls/hr .[id number] [facility] Administration Cefazolin Sodium 1,000 mg/ 50 mls @ 100 mls/hr 06/09/21 16:00 06/11/21 00:55 Sodium Chloride IVPB 100 mls/hr Q8HR [facility] Administration Lisinopril 5 mg 06/11/21 21:00 Lisinopril 5 Mg Tab PO HS SH[facility]IDA Midodrine 5 mg 06/11/21 12:30 Midodrine 5 Mg Tab PO AC-TID [facility] Morphine Sulfate 4 mg 06/09/21 06:18 Morphine Sulfate 4 Mg/Ml Syringe IV Q4HR PRN Severe Pain Naloxone HCl 0.2 mg 06/09/21 06:05 Naloxone 0.4 Mg/Ml 1 Ml Vial IV Q2M PRN Opioid Reversal Ondansetron HCl 4 mg 06/09/21 06:18 Ondansetron 4 Mg/2 Ml Vial IVP Q8HR PRN Nausea And Vomiting Sertraline HCl 150 mg 06/09/21 09:00 06/11/21 09:57 Sertraline 50 Mg Tab PO 150 mg DAILY SHAHIDA Administration Intake and Output 06/10/21 06/11/21 06/11/21 22:59 06:59 14:59 Intake Total 150 100 Balance 150 100 Intake: Intake, IV Titration 150 Amount Sodium Chloride 0.9% 1, 150 000 ml @ 75 mls/hr IV . [id number] [facility] Rx#:[id number] Oral 100 Other: # Voids 1 06/10/21 04:28 06/10/21 04:28
[2021-06-11] MEDS ORDERED: MIDODRINE 5 MG TAB PO SCH (12:30)
[2021-06-11 13:02] VITALS: BP 169/86; PULSE 83; RESP 17; TEMP 98.9
--- NOTE | 2021-06-11 13:16 | P.PN ---
Subjective Progress Note Date: 06/11/21 Yesterday the patient has orthostatic vitals checked: In the patient's systolic blood pressure sitting was 63/64 with a heart rate of 82 while standing systolic blood pressure was 127/69 with a heart rate of 91. As a result cardiology was consulted as of patients or positive orthostatic vital. Cardiology team adjusted the his the hypertension medication and they decreased the cardiac exam as well as Elavil and started the patient on Namenda drain 5 mg 1 tablet 3 times a day. Upon seeing the patient at bedside he denies of any further dizziness. He denies of any focal weakness, numbness, any visual disturbance. Objective - Vital Signs Vital signs: Vital Signs Temp 98.9 F 06/11/21 13:00 Pulse 83 06/11/21 13:00 Resp 17 06/11/21 13:00 BP 169/86 06/11/21 13:00 Pulse Ox 98 06/11/21 13:00 Intake & Output 06/10/21 06/11/21 06/11/21 18:59 06:59 18:59 Intake Total 150 100 Output Total 525 Balance -375 100 Weight 71.668 kg Intake: Intake, IV Titration 150 Amount Sodium Chloride 0.9% 1, 150 000 ml @ 75 mls/hr IV . [id number] [facility] Rx#:[id number] Oral 100 Output: Urine 525 Other: # Voids 1 - Exam GENERAL: The patient is lying in bed and is not in acute distress. HENT: Echymosis and some hematoma around the left periorbital and left side of eye there is echymosis. NEUROLOGICAL: Higher mental function: The patient is awake, alert, oriented to self, place and time. Patient is following commands. No aphasia and no neglect. Cranial nerves: The pupils are round, equal and reactive to light and accommodation. Visual rivera are full to confrontation throughout. Extraocular movement is intact no nystagmus is noted. Facial sensation is normal to touch throughout. The facial strength is normal throughout. Hearing is moderately bilaterally to hand rub. Tongue is midline and moved [id number] without any difficulty. No dysarthria is noted. Shoulder shrug is normal bilaterally. Motor: Gait is normal with normal arms swings. The strength is 5 over 5 through out. Normal tone and bulk. Cerebellum: Normal finger to nose bilaterally. Sensation: Sensation is normal to touch throughout. Reflexes (right/left): 2+ throughout except ankles are 1+. Plantars are downgoing bilaterally. WORK-UP: orthostatic vitals checked: In the patient's systolic blood pressure sitting was 63/64 with a heart rate of 82 while standing systolic blood pressure was 127/69 with a heart rate of 91. Urine drug screen is positive for tricyclic and marijuana. Neal virus PCR was not detected. CT of the head is reported as cerebral atrophy. No acute intracranial abnormality. I personally reviewed the CT of the head there is no acute or subacute ischemia dose appreciable. There is no interpretable hemorrhage. CT of the face is reported as there is a tripod fracture of the left zygoma. There is a bone out fracture of the floor of the left orbit with a small amount of intraorbital air bubble. There is hemorrhage in the left maxillary sinus with a fluid level. There is no nondisplaced fracture anterior wall of left maxillary sinus with comminution. Carotid duplex is reported as no hemodynamic significant stenosis of the proximal internal carotid arteries by Doppler criteria, and in direct measurement of carotid stenosis. 2-D echo was reported as left ventricle wall thickness is normal. Ejection fraction of 55-60%. - Labs CBC & Chem 7: 06/10/21 04:28 06/10/21 04:28 Assessment and Plan Assessment: Positive Orthostatic hypotension Two episodes of falls associated with dizziness seems seems due to above. Chronic recurrent intermittent vertigo Left facial fracture over the left orbit left maxilla due to fall History of reported ?TIA (about 7 years ago with dizziness, nausea and disoriented) Hypertension Memory impairment History of chronic back pain status post laminectomy of L5 to S2 Hyperlipidemia Plan: I canceled the MRI the brain since the patient's dizziness has resolved since his blood pressure medication has been modified and the patient was started on midodrine. If the patient continues to have the dizziness recommend MRI of the brain as an outpatient to rule out any intracranial process. Patient Cardizem was decreased as well as the Elavil was decreased and was Toprol was started by the cardiology team as well as a small dose of Midrin of 5 mg 1 tablet 3 times a day. We'll defer on modification of the patient's blood pressure to the cardiology team Cardiology team recommended patient event monitor PT and OT are consulted Dr. Kessler is consulted for ENT. General surgery is the primary on team. We'll defer the rest of the medical management to the primary team Patient was notified that he needs to follow-up with ENT as outpatient and will follow-up with cardiology team. Patient was instructed to use his walker all the time (he said he has one and will start using it). The plan is discussed with the patient and his nurse. There is no further neurological work-up and patient is clear from neurological perspective. Ronnell Rodriguez M.D. Neuro-hospitalist Time with Patient: Less than 30
--- NOTE | 2021-06-11 14:07 | P.DS ---
Providers Date of admission: 06/09/21 06:05 Expected date of discharge: 06/11/21 Attending physician: Kilo Calixto Consults: 06/09/21 06:06 Consult Physician Routine Consulting Provider: Ac Kessler Consult Reason/Comments: facial fractures Do you want consulting provider notified?: Yes 06/09/21 06:18 Consult Physician Routine Consulting Provider: Robin Gallagher Consult Reason/Comments: your patient Do you want consulting provider notified?: Already Contacted 06/10/21 08:15 Consult Physician Routine Consulting Provider: Ronnell Rodriguez Consult Reason/Comments: syncope? Do you want consulting provider notified?: Yes 06/10/21 11:47 Consult Physician Routine Consulting Provider: Cuate Marquez Consult Reason/Comments: positive orthostats, frequent falls Do you want consulting provider notified?: Yes Primary care physician: Robin Gallagher - Discharge Diagnosis(es) (1) Fall Current Visit: Yes Status: Acute (2) Left orbit fracture Current Visit: Yes Status: Acute (3) Zygomatic fracture, left side, initial encounter for closed fracture Current Visit: Yes Status: Acute Hospital Course: CHIEF COMPLAINT: Status post fall HISTORY OF PRESENT ILLNESS: The patient is a 76-year-old male status post fall with multiple facial fractures. He has been seen and cleared from neurology and cardiology for discharge. Per nurse, customer sales consultant stated patient clear for discharge with outpatient follow-up. ROS: No reports of nausea and vomiting. No fevers or chills. No new chest pain. No productive sputum PHYSICAL EXAM: VITAL SIGNS: Reviewed CONSTITUTIONAL: Well developed and in no acute distress. EYES: Conjuctivae without sclera icterus. Extraocular movements grossly intact. Wears glasses. HEAD, EARS, NOSE, THROAT: Has edema and ecchymosis of the left zygoma/cheek and left eye. NECK: No thyroidomegaly. RESPIRATORY: Non-labored respirations and equal bilateral excursions. CARDIOVASCULAR: 2+ radial pulses. ABDOMEN: No peritonitis. MUSCULOSKELETAL: No gross deformity of the lower extremities noted. No clubbing. No cyanosis. SKIN: Good skin turgor. Well perfused. NEUROLOGIC: Cranial nerves I through XII grossly intact. No focal or lateralizing signs. PSYCH: Appropriate affect. Alert and oriented to person, place and time. CLINICAL LABS: Reviewed. Hgb 11.8, anemia. WBC normal. ASSESSMENT: 1. Status post fall 2. Left zygomatic fracture PLAN: 1. Stable for discharge per multiple consultants 2. Patient cautioned to avoid chewing hard foods with fracture. Follow up with PCP for outpatient ENT referral reviewed. Patient Condition at Discharge: Stable Plan - Discharge Summary Discharge Rx Participant: No New Discharge Prescriptions: New Midodrine [ProAmatine] 5 mg PO AC-TID #60 tab lisinopriL [Zestril] 5 mg PO HS #30 tab Continue Sertraline HCl [Zoloft] 150 mg PO DAILY Diltiazem HCl [Diltiazem HCl 24Hr ER (LA)] 300 mg PO DAILY Atorvastatin Calcium [Lipitor] 40 mg PO HS Amitriptyline HCl [Elavil] 100 mg PO HS Naproxen 500 mg PO BID traMADol HCl [Ultram] 50 mg PO Q4H PRN PRN Reason: Pain Discharge Medication List Amitriptyline HCl [Elavil] 100 mg PO HS 04/12/21 [History] Atorvastatin Calcium [Lipitor] 40 mg PO HS 04/12/21 [History] Diltiazem HCl [Diltiazem HCl 24Hr ER (LA)] 300 mg PO DAILY 04/12/21 [History] Naproxen 500 mg PO BID 04/12/21 [History] Sertraline HCl [Zoloft] 150 mg PO DAILY 04/12/21 [History] traMADol HCl [Ultram] 50 mg PO Q4H PRN 04/12/21 [History] Midodrine [ProAmatine] 5 mg PO AC-TID #60 tab 06/11/21 [Rx] lisinopriL [Zestril] 5 mg PO HS #30 tab 06/11/21 [Rx] Follow up Appointment(s)/Referral(s): Sandi Resendez MD [STAFF PHYSICIAN] - 2 Weeks Robin Gallagher MD [Primary Care Provider] - 1-2 days Ambulatory/Diagnostic Orders: Complete Blood Count w/diff [LAB.AMB] Location: None Selected Patient Instructions/Handouts: Lisinopril (By mouth), Midodrine (By mouth), Facial Fracture (DC), Hypotension (DC), Fall Prevention (DC) Activity/Diet/Wound Care/Special Instructions: SOFT FOOD DIET. AVOID OVER CHEWING WITH FACIAL FRACTURE. FOLLOW UP WITH PCP FOR ENT REFERRAL Diet cardiac Activity Limited follow-up follow-up with the ENT surgery and the primary as recommended Discharge Disposition: HOME SELF-CARE
--- NOTE | 2021-06-11 15:38 | PN ---
PROGRESS NOTE I am covering for Dr. Gallagher. DATE OF SERVICE: 06/11/2021. This 76-year-old gentleman who was admitted after fracture and zygomatic fracture and fall is being closely monitored. Cardiology has seen the patient. Medication adjusted. At this time no chest pain, no palpitations. No fever. Blood pressure is improved. PHYSICAL EXAMINATION: Alert and oriented x3. Pulse is 83, blood pressure is 169/83, respiration 17, temperature 98.9, pulse ox 98% on room air. HEENT: Conjunctivae normal. NECK: No jugular venous distention. CARDIOVASCULAR: S1, S2 muffled. RESPIRATION: Breath sounds diminished at the bases. Scattered rhonchi and crackles. ABDOMEN: Soft, nontender. NERVOUS SYSTEM: No focal deficit. LABS: WBC 7.3, hemoglobin 11.4 and sodium 136. ASSESSMENT: 1. Orthostatic hypotension. 2. Two episodes of falls and dizziness. 3. Chronic intermittent vertigo. 4. Left facial zygomatic fracture, left orbit. 5. History of reported transient ischemic attack. 6. Hypertension. 7. Memory impairment. 8. Chronic back pain, 9. Hyperlipidemia. RECOMMENDATIONS AND DISCUSSION: I recommend to continue current medications, continue with symptomatic treatment. Medication adjustments were done. Decrease the dose of Cardizem and add lisinopril. Add midodrine. Closely follow with Cardiology as outpatient. Follow up with Dr. Gallagher. The rest of the recommendations per Surgery. MMODL / JAYN: [id number] / MTDD
[2021-06-11] MEDS ORDERED: AMITRIPTYLINE HCL 50 MG TAB PO SCH (21:00)
[2021-06-11] MEDS ORDERED: lisinopriL 5 MG TAB PO SCH (21:00)
[2021-06-12] MEDS ORDERED: DILTIAZEM CD 300 MG CAP.ER.24H PO SCH (09:00)
== END 2021-06-11 15:36 | disposition home or self-care (01) | DRG 125 ==
LOC: EC 02:23 → 5NMEDONC 06:05 → 1SOBS 19:29 → 5NMEDONC 06-10 15:04
PROVIDERS: ADMIT Surgery; ATTEND Surgery
DX: S02.32XA Fracture of orbital floor, left side, initial encounter for closed fracture (principal); S02.40FA Zygomatic fracture, left side, initial encounter for closed fracture; I31.3 Pericardial effusion (noninflammatory); A38.9 Scarlet fever, uncomplicated; Z20.822 Contact with and (suspected) exposure to COVID-19; M06.9 Rheumatoid arthritis, unspecified; R29.6 Repeated falls; I95.1 Orthostatic hypotension; H91.90 Unspecified hearing loss, unspecified ear; S05.11XA Contusion of eyeball and orbital tissues, right eye, initial encounter; I08.1 Rheumatic disorders of both mitral and tricuspid valves; R42 Dizziness and giddiness; R55 Syncope and collapse; R41.0 Disorientation, unspecified; I10 Essential (primary) hypertension; M54.9 Dorsalgia, unspecified; G31.84 Mild cognitive impairment of uncertain or unknown etiology; G89.29 Other chronic pain; F32.A Depression, unspecified; E78.5 Hyperlipidemia, unspecified; Z87.891 Personal history of nicotine dependence; W01.0XXA Fall on same level from slipping, tripping and stumbling without subsequent striking against object, initial encounter; Y93.01 Activity, walking, marching and hiking; Z79.899 Other long term (current) drug therapy; Z86.73 Personal history of transient ischemic attack (TIA), and cerebral infarction without residual deficits
CPT/HCPCS: 36415; 70450; 70486; 80048; 80053; 80306; 82140; 85025; 85027; 87635; 93005; 93306; 93880; 96365; 96366; 99285

== ENCOUNTER 2021-09-02 21:25 | Observation (INO) | payer MEDICARE ==
[2021-09-02] MEDS ORDERED: SODIUM CHLORIDE 0.9% 1,000 ML IV STA (21:57)
--- NOTE | 2021-09-02 21:58 | ED ---
Abdominal Pain HPI - General Chief Complaint: Abdominal Pain Stated Complaint: Abdominal pain, JASPAL Time Seen by Provider: 09/02/21 21:56 Source: patient, EMS, RN notes reviewed Mode of arrival: EMS Limitations: no limitations - History of Present Illness MD Complaint: abdominal pain Onset/Timin -: hour(s) Location: LLQ, RLQ, suprapubic Migration to: no migration Severity: moderate Severity scale (1-10): 6 Quality: cramping, aching Consistency: intermittent Improves With: nothing Worsens With: nothing Associated Symptoms: nausea, vomiting, diarrhea (Per the patient's spouse did have evidence of some blood mixed with stool. No evidence of hematemesis or coffee-ground emesis.) - Related Data Home Medications Medication Instructions Recorded Confirmed Amitriptyline HCl [Elavil] 100 mg PO HS 04/12/21 09/02/21 Atorvastatin Calcium [Lipitor] 40 mg PO HS 04/12/21 09/02/21 Naproxen 500 mg PO BID-W/MEALS 04/12/21 09/02/21 Sertraline HCl [Zoloft] 150 mg PO HS 04/12/21 09/02/21 traMADol HCl [Ultram] 50 mg PO Q4H PRN 04/12/21 09/02/21 Diltiazem Cd [Cardizem CD] 300 mg PO DAILY 09/02/21 09/02/21 lisinopriL [Zestril] 5 mg PO DAILY 09/02/21 09/02/21 Allergies Allergy/AdvReac Type Severity Reaction Status Date / Time No Known Allergies Allergy Verified 09/02/21 23:08 Review of Systems ROS Statement: Those systems with pertinent positive or pertinent negative responses have been documented in the HPI. ROS Other: All systems not noted in ROS Statement are negative. 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 Past Anesthesia/Blood Transfusion Reactions: No Reported Reaction Past Psychological History: Depression Smoking Status: Former smoker Past Alcohol Use History: None Reported Past Drug Use History: Marijuana - Past Family History Father Additional Family Medical History / Comment(s): of old age Mother Family Medical History: Unable to Obtain General Exam - General Exam Comments Initial Comments: This is a pleasant 76-year-old male in mild distress. Patient does not appear to be ill or toxic. Patient complains of lower abdominal pain. No signs noted Limitations: no limitations General appearance: alert, in no apparent distress Head exam: Present: atraumatic, normocephalic, normal inspection Eye exam: Present: normal appearance, PERRL, EOMI. Absent: scleral icterus, conjunctival injection, periorbital swelling ENT exam: Present: normal exam, mucous membranes moist Neck exam: Present: normal inspection. Absent: tenderness, meningismus, lymphadenopathy Respiratory exam: Present: normal lung sounds bilaterally. Absent: respiratory distress, wheezes, rales, rhonchi, stridor Cardiovascular Exam: Present: regular rate, normal rhythm, normal heart sounds. Absent: systolic murmur, diastolic murmur, rubs, gallop, clicks GI/Abdominal exam: Present: soft, tenderness, guarding, diminished bowel sounds, other (Patient has tenderness with guarding which seems to be quite diffuse and most prevalent and lower abdomen.). Absent: distended, rebound, rigid Rectal exam: Present: normal rectal tone, other (Small amount of brown stool mixed with what appears to be blood. Sent for analysis.) Extremities exam: Present: normal inspection, full ROM, normal capillary refill. Absent: tenderness, pedal edema, joint swelling, calf tenderness Back exam: Present: normal inspection Neurological exam: Present: alert, oriented X3, CN II-XII intact Psychiatric exam: Present: normal affect, normal mood Skin exam: Present: warm, dry, intact, normal color. Absent: rash Course Vital Signs 09/02/21 21:32 Temperature 98 F Pulse Rate 96 Respiratory 16 Rate Blood Pressure 143/56 O2 Sat by Pulse 99 Oximetry Medical Decision Making - Medical Decision Making Patient with history of ischemic bowel presents with lower abdominal pain for 1 day. Differential would include ischemic colitis. Other intra-abdominal infectious versus inflammatory etiology ruled out. Does not appear to be consistent with aortic disease. No chest pain or shortness of breath. The case was discussed in detail with ED attending physician. Presentation, findings, treatment plan discussed in detail. Case discussed in detail with Dr. Gallagher as well as the on-call surgeon, Dr. [place]. Patient admitted for hydration, antibiotics, and surgical consultation. Patient hemodynamically stable. Patient really meets sepsis criteria with evidence of organ dysfunction. Increase of creatinine of greater than 0.5. Lactic acidosis. Suspected infection with white blood count elevated, however, afebrile. Patient hemodynamically stable. - Lab Data Result diagrams: 09/02/21 22:00 09/02/21 22:00 Lab Results 09/02/21 09/02/21 09/02/21 Range/Units 22:00 22:00 22:00 WBC 13.2 H (3.8-10.6) k/uL RBC 4.79 (4.30-5.90) m/uL Hgb 15.0 (13.0-17.5) gm/dL Hct 45.5 (39.0-53.0) % MCV 95.0 (80.0-100.0) fL MCH 31.3 (25.0-35.0) pg MCHC 33.0 (31.0-37.0) g/dL RDW 13.6 (11.5-15.5) % Plt Count 382 (150-450) k/uL MPV 7.5 Neutrophils % (Manual) 57 % Band Neuts % (Manual) 18 % Lymphocytes % (Manual) 11 % Monocytes % (Manual) 14 % Neutrophils # (Manual) 9.90 H (1.3-7.7) k/uL Lymphocytes # (Manual) 1.45 (1.0-4.8) k/uL Monocytes # (Manual) 1.85 H (0-1.0) k/uL Nucleated RBCs 0 (0-0) /100 WBC Manual Slide Review Performed Sodium 135 L (137-145) mmol/L Potassium 5.1 (3.5-5.1) mmol/L Chloride 101 (98-107) mmol/L Carbon Dioxide 19 L (22-30) mmol/L Anion Gap 15 mmol/L BUN 33 H (9-20) mg/dL Creatinine 1.36 H (0.66-1.25) mg/dL Est GFR (CKD-EPI)AfAm 59 (>60 ml/min/1.73 sqM) Est GFR (CKD-EPI)NonAf 51 (>60 ml/min/1.73 sqM) Glucose 130 H (74-99) mg/dL Plasma Lactic Acid Esau 6.4 H* (0.7-2.0) mmol/L Calcium 9.1 (8.4-10.2) mg/dL Phosphorus (2.5-4.5) mg/dL Total Bilirubin 0.5 (0.2-1.3) mg/dL AST 24 (17-59) U/L ALT 25 (4-49) U/L Alkaline Phosphatase 230 H (38-126) U/L Total Protein 6.0 L (6.3-8.2) g/dL Albumin 3.6 (3.5-5.0) g/dL Lipase 25 (23-300) U/L Stool Occult Blood (Negative) 09/02/21 09/02/21 Range/Units 22:00 22:42 WBC (3.8-10.6) k/uL RBC (4.30-5.90) m/uL Hgb (13.0-17.5) gm/dL Hct (39.0-53.0) % MCV (80.0-100.0) fL MCH (25.0-35.0) pg MCHC (31.0-37.0) g/dL RDW (11.5-15.5) % Plt Count (150-450) k/uL MPV Neutrophils % (Manual) % Band Neuts % (Manual) % Lymphocytes % (Manual) % Monocytes % (Manual) % Neutrophils # (Manual) (1.3-7.7) k/uL Lymphocytes # (Manual) (1.0-4.8) k/uL Monocytes # (Manual) (0-1.0) k/uL Nucleated RBCs (0-0) /100 WBC Manual Slide Review Sodium (137-145) mmol/L Potassium (3.5-5.1) mmol/L Chloride (98-107) mmol/L Carbon Dioxide (22-30) mmol/L Anion Gap mmol/L BUN (9-20) mg/dL Creatinine (0.66-1.25) mg/dL Est GFR (CKD-EPI)AfAm (>60 ml/min/1.73 sqM) Est GFR (CKD-EPI)NonAf (>60 ml/min/1.73 sqM) Glucose (74-99) mg/dL Plasma Lactic Acid Esau (0.7-2.0) mmol/L Calcium (8.4-10.2) mg/dL Phosphorus 4.3 (2.5-4.5) mg/dL Total Bilirubin (0.2-1.3) mg/dL AST (17-59) U/L ALT (4-49) U/L Alkaline Phosphatase (38-126) U/L Total Protein (6.3-8.2) g/dL Albumin (3.5-5.0) g/dL Lipase (23-300) U/L Stool Occult Blood Positive (Negative) Critical Care Time Critical Care Time: Yes (31) Total Critical Care Time: 31 Critical Care Time: Patient meets criteria for sepsis with colitis/abdominal pain, acute kidney injury with a greater than 0.5 increase in his creatinine. Disposition Clinical Impression: Sepsis, Colitis, Occult blood positive stool, Acute kidney injury Disposition: ADMITTED IP TO THIS HOSP Condition: Fair Referrals: Robin Gallagher MD [Primary Care Provider] - 1-2 days Decision to Admit Reason: Admit from EC Decision Time: 00:12
[2021-09-02] MEDS ORDERED: ONDANSETRON 4 MG/2 ML VIAL IVP STA (22:08)
[2021-09-02] MEDS ORDERED: MORPHINE SULFATE 4 MG/ML SYRINGE IV STA (22:08)
[2021-09-02 22:16] LABS: Albumin 3.6 g/dL (3.5-5.0); Calcium 9.1 mg/dL (8.4-10.2); Potassium 5.1 mmol/L (3.5-5.1); Total Bilirubin 0.5 mg/dL (0.2-1.3)
[2021-09-02 22:19] LABS: HCT 45.5 % (39.0-53.0); MCH 31.3 pg (25.0-35.0); Mean Platelet Volume 7.5; Platelet Count 382 k/uL (150-450); RBC 4.79 m/uL (4.30-5.90); RDW 13.6 % (11.5-15.5); WBC 13.2 k/uL (3.8-10.6)
[2021-09-02 22:43] LABS: Band Neutrophils % 18 %; Lymphocytes # (M) 1.45 k/uL (1.0-4.8); Monocytes # (M) 1.85 k/uL (0-1.0); Neutrophils % (M) 57 %; Nucleated Red Blood Cells 0 /100 WBC (0-0); Total Cells Counted 200
[2021-09-02] MEDS ORDERED: PIPERACILLIN-TAZOBACTAM 3.375 GM in SODIUM CHLORIDE 0.9% 100 ML IVPB ONE (22:45)
--- NOTE | 2021-09-02 23:05 | CT ---
EXAMINATION TYPE: CT angio abdomen pelvis DATE OF EXAM: 09/02/2021 COMPARISON: 04/12/2021 HISTORY: Lower abdomen pain, hx ischemic colitis. CT DLP: 582.8 mGycm Automated exposure control for dose reduction was used. CONTRAST: Performed with IV Contrast, patient injected with 80 mL of Isovue 370. Images obtained from the diaphragm to the floor the pelvis with IV contrast. There are Three-D postpr ocessed images. Lung bases are clear. There is no pleural effusion. Liver spleen stomach pancreas and gallbladder meka ear intact. The bile ducts are not dilated. There is no adrenal mass. Kidneys show satisfactory contr ast opacification. There is no hydronephrosis. There are bilateral renal cortical cysts that measure up to 4.5 cm. There is no evidence of solid renal mass. There is no retroperitoneal adenopathy. The b ladder distends smoothly. There is no inguinal hernia. There are sigmoid diverticula. There is normal contrast opacification of the abdominal aorta. There is arterial flow in the celiac a rtery and superior mesenteric artery without stenosis. There is arterial flow in the renal and iliac and femoral arteries. No evidence of significant stenosis. Abdominal aorta is atheromatous. There is some wall thickening of the sigmoid colon and the splenic flexure of the colon consistent with some n onspecific colitis. There is sigmoid diverticula and no definite diverticulitis. The lumbar vertebrae are normal alignment. There is narrowing of L5-S1 disc space with spurring and v acuum disc. There is no compression fracture. Bony pelvis is intact. The hip joints are intact. Sacro iliac joints are intact. IMPRESSION: There is evidence of some colitis involving the sigmoid colon and the splenic flexure. No significant vascular abnormality. No hemodynamic stenosis. Colonic edema slightly improved compare d to the old exam.
[2021-09-02] MEDS ORDERED: HYDROmorphone 1 MG/ML 1 ML SYRINGE IVP STA (23:27)
[2021-09-02] MEDS ORDERED: LACTATED RINGERS 1,000 ML IV SCH ×2 (23:45)
[2021-09-02] MEDS ORDERED: HYDROmorphone 0.5 MG/0.5 ML SYRINGE IVP PRN (23:56)
[2021-09-02] MEDS ORDERED: HYDROmorphone 1 MG/ML 1 ML SYRINGE IVP PRN (23:56)
[2021-09-02] MEDS ORDERED: ACETAMINOPHEN TAB 325 MG TAB PO PRN (23:56)
[2021-09-02] MEDS ORDERED: LORazepam 2 MG/ML INJ IV PRN (23:56)
[2021-09-02] MEDS ORDERED: NALOXONE 0.4 MG/ML 1 ML VIAL IV PRN (23:56)
[2021-09-02] MEDS ORDERED: ONDANSETRON 4 MG/2 ML VIAL IVP PRN (23:56)
[2021-09-03 01:11] LABS: Appearance,Urine Clear (Clear); Bilirubin,Urine Negative (Negative); Blood,Urine Negative (Negative); Color,Urine Yellow; Glucose,Urine (UA) Negative (Negative); Ketones,Urine Trace (Negative); Leukocyte Esterase,Urine Negative (Negative); Nitrite,Urine Negative (Negative); PH, Urine 5.5 (5.0-8.0); Protein,Urine Trace (Negative); Specific Gravity,Urine >1.050 (1.001-1.035); Urobilinogen,Urine <2.0 mg/dL (<2.0)
[2021-09-03] MEDS: PANTOPRAZOLE 40 MG/10 ML VIAL IV SCH ×2 (01:24→08:26)
[2021-09-03 05:11] LABS: Basophils % (A) 0 %; Eosinophils % (A) 0 %; HCT 40.1 % (39.0-53.0); HGB 13.4 gm/dL (13.0-17.5); Lymphocytes % (A) 12 %; MCH 31.4 pg (25.0-35.0); MCHC 33.5 g/dL (31.0-37.0); MCV 93.9 fL (80.0-100.0); Monocytes # (A) 0.8 k/uL (0-1.0); Monocytes % (A) 10 %; Neutrophils # (A) 5.8 k/uL (1.3-7.7); Neutrophils % (A) 74 %; Platelet Count 299 k/uL (150-450); RBC 4.27 m/uL (4.30-5.90); RDW 13.7 % (11.5-15.5); WBC 7.9 k/uL (3.8-10.6)
[2021-09-03 05:27] LABS: Calcium 8.4 mg/dL (8.4-10.2); Potassium 4.7 mmol/L (3.5-5.1); Total Bilirubin 0.5 mg/dL (0.2-1.3); Total Protein 5.3 g/dL (6.3-8.2)
[2021-09-03] MEDS: SODIUM CHLORIDE 0.9% 1,000 ML IV SCH ×4 (05:51→23:44)
[2021-09-03] MEDS: PIPERACILLIN-TAZOBACTAM 3.375 GM in SODIUM CHLORIDE 0.9% 100 ML IVPB SCH ×3 (08:27→23:44)
--- NOTE | 2021-09-03 13:10 | P.GSCN ---
History of Present Illness Consult date: 09/03/21 History of present illness: 76-year-old male presented to the emergency department with complaints of abdominal pain and diarrhea did contain some blood. He complained of left-sided abdominal pain mostly. Complained of some nausea but denied any emesis episodes. He states that he does have a history of ischemic bowel. He mentioned that he has had a history of for colonoscopies the last of which was approximately 5 years ago. Since his admission, he states that his abdominal pain is much improved. On arrival, he did have a lactic acidosis greater than 6 that has since resolved with fluid resuscitation. Leukocytosis has resolved. Patient denies any further bloody bowel movements at this time. No additional complaints. CT of the abdomen and pelvis revealed concern for colitis of the descending and sigmoid colon. Review of Systems All systems: negative Past Medical History Past Medical History: CVA/TIA, GERD/Reflux, Hyperlipidemia, Hypertension, Memory Impairment, Rheumatoid Arthritis (RA) Additional Past Medical History / Comment(s): scarlatina as a child, TIA, vertigo, colitis History of Any Multi-Drug Resistant Organisms: None Reported Past Surgical History: Adenoidectomy, Tonsillectomy Additional Past Surgical History / Comment(s): laminectomy L5 S2, colonoscopy x3. Past Anesthesia/Blood Transfusion Reactions: No Reported Reaction Past Psychological History: Anxiety, Depression Smoking Status: Former smoker Past Alcohol Use History: None Reported Past Drug Use History: Marijuana Additional Drug Use History / Comment(s): Pt reports smoking a joint 2-3 times a day. - Past Family History Father Additional Family Medical History / Comment(s): of old age. Mother Family Medical History: Myocardial Infarction ([place]) Medications and Allergies Home Medications Medication Instructions Recorded Confirmed Type Amitriptyline HCl [Elavil] 100 mg PO HS 04/12/21 09/02/21 History Atorvastatin Calcium [Lipitor] 40 mg PO HS 04/12/21 09/02/21 History Naproxen 500 mg PO BID-W/MEALS 04/12/21 09/02/21 History Sertraline HCl [Zoloft] 150 mg PO HS 04/12/21 09/02/21 History traMADol HCl [Ultram] 50 mg PO Q4H PRN 04/12/21 09/02/21 History Diltiazem Cd [Cardizem CD] 300 mg PO DAILY 09/02/21 09/02/21 History lisinopriL [Zestril] 5 mg PO DAILY 09/02/21 09/02/21 History Allergies Allergy/AdvReac Type Severity Reaction Status Date / Time No Known Allergies Allergy Verified 09/02/21 23:08 Surgical - Exam Osteopathic Statement: *. No significant issues noted on an osteopathic structural exam other than those noted in the History and Physical/Consult. Vital Signs Temp Pulse Resp BP Pulse Ox 98 F 96 16 143/56 99 09/02/21 21:32 09/02/21 21:32 09/02/21 21:32 09/02/21 21:32 09/02/21 21:32 - General well nourished - Eyes normal ocular movement - ENT normal mucosa - Neck trachea midline - Respiratory normal respiratory effort - Abdomen Soft, some tenderness to deep palpation of the left lower quadrant, nondistended, no rebound, no guarding, no tenderness to percussion - Psychiatric oriented to time, oriented to person, oriented to place Results - Labs 09/03/21 04:44 09/03/21 04:44 Abnormal Lab Results - Last 24 Hours (Table) 09/02/21 09/02/21 09/02/21 Range/Units 22:00 22:00 22:00 WBC 13.2 H (3.8-10.6) k/uL RBC (4.30-5.90) m/uL Neutrophils # (Manual) 9.90 H (1.3-7.7) k/uL Monocytes # (Manual) 1.85 H (0-1.0) k/uL Sodium 135 L (137-145) mmol/L Carbon Dioxide 19 L (22-30) mmol/L BUN 33 H (9-20) mg/dL Creatinine 1.36 H (0.66-1.25) mg/dL Glucose 130 H (74-99) mg/dL Plasma Lactic Acid Esau 6.4 H* (0.7-2.0) mmol/L Alkaline Phosphatase 230 H (38-126) U/L Total Protein 6.0 L (6.3-8.2) g/dL Albumin (3.5-5.0) g/dL Ur Specific [place] (1.001-1.035) Urine Protein (Negative) Urine Ketones (Negative) 0209/03/21 09/03/21 Range/Units 01:02 01:20 04:44 WBC (3.8-10.6) k/uL RBC 4.27 L (4.30-5.90) m/uL Neutrophils # (Manual) (1.3-7.7) k/uL Monocytes # (Manual) (0-1.0) k/uL Sodium (137-145) mmol/L Carbon Dioxide (22-30) mmol/L BUN (9-20) mg/dL Creatinine (0.66-1.25) mg/dL Glucose (74-99) mg/dL Plasma Lactic Acid Esau 3.6 H* (0.7-2.0) mmol/L Alkaline Phosphatase (38-126) U/L Total Protein (6.3-8.2) g/dL Albumin (3.5-5.0) g/dL Ur Specific [place] >1.050 H (1.001-1.035) Urine Protein Trace H (Negative) Urine Ketones Trace H (Negative) 09/03/21 Range/Units 04:44 WBC (3.8-10.6) k/uL RBC (4.30-5.90) m/uL Neutrophils # (Manual) (1.3-7.7) k/uL Monocytes # (Manual) (0-1.0) k/uL Sodium 134 L (137-145) mmol/L Carbon Dioxide 20 L (22-30) mmol/L BUN 29 H (9-20) mg/dL Creatinine (0.66-1.25) mg/dL Glucose 127 H (74-99) mg/dL Plasma Lactic Acid Esau (0.7-2.0) mmol/L Alkaline Phosphatase 182 H (38-126) U/L Total Protein 5.3 L (6.3-8.2) g/dL Albumin 3.0 L (3.5-5.0) g/dL Ur Specific [place] (1.001-1.035) Urine Protein (Negative) Urine Ketones (Negative) Diabetes panel 09/02/21 09/03/21 Range/Units 22:00 04:44 Sodium 135 L 134 L (137-145) mmol/L Potassium 5.1 4.7 (3.5-5.1) mmol/L Chloride 101 105 (98-107) mmol/L Carbon Dioxide 19 L 20 L (22-30) mmol/L BUN 33 H 29 H (9-20) mg/dL Creatinine 1.36 H 0.99 (0.66-1.25) mg/dL Glucose 130 H 127 H (74-99) mg/dL Calcium 9.1 8.4 (8.4-10.2) mg/dL AST 24 18 (17-59) U/L ALT 25 14 (4-49) U/L Alkaline Phosphatase 230 H 182 H (38-126) U/L Total Protein 6.0 L 5.3 L (6.3-8.2) g/dL Albumin 3.6 3.0 L (3.5-5.0) g/dL Calcium panel 09/02/21 09/02/21 09/03/21 Range/Units 22:00 22:00 04:44 Calcium 9.1 8.4 (8.4-10.2) mg/dL Phosphorus 4.3 (2.5-4.5) mg/dL Albumin 3.6 3.0 L (3.5-5.0) g/dL Pituitary panel 09/02/21 09/03/21 Range/Units 22:00 04:44 Sodium 135 L 134 L (137-145) mmol/L Potassium 5.1 4.7 (3.5-5.1) mmol/L Chloride 101 105 (98-107) mmol/L Carbon Dioxide 19 L 20 L (22-30) mmol/L BUN 33 H 29 H (9-20) mg/dL Creatinine 1.36 H 0.99 (0.66-1.25) mg/dL Glucose 130 H 127 H (74-99) mg/dL Calcium 9.1 8.4 (8.4-10.2) mg/dL Adrenal panel 09/02/21 09/03/21 Range/Units 22:00 04:44 Sodium 135 L 134 L (137-145) mmol/L Potassium 5.1 4.7 (3.5-5.1) mmol/L Chloride 101 105 (98-107) mmol/L Carbon Dioxide 19 L 20 L (22-30) mmol/L BUN 33 H 29 H (9-20) mg/dL Creatinine 1.36 H 0.99 (0.66-1.25) mg/dL Glucose 130 H 127 H (74-99) mg/dL Calcium 9.1 8.4 (8.4-10.2) mg/dL Total Bilirubin 0.5 0.5 (0.2-1.3) mg/dL AST 24 18 (17-59) U/L ALT 25 14 (4-49) U/L Alkaline Phosphatase 230 H 182 H (38-126) U/L Total Protein 6.0 L 5.3 L (6.3-8.2) g/dL Albumin 3.6 3.0 L (3.5-5.0) g/dL Assessment and Plan Plan: 76-year-old male with colitis. I recommend continuing IV antibiotics and IV fluid resuscitation. We will keep the patient nothing by mouth as of now due to continued discomfort on physical exam. Ice chips and meds will be given. Patient will benefit for him gastrology workup with possible endoscopy after resolution of the colitis. No plan for acute surgical intervention. We'll continue to monitor the patient and make recommendations based on the patient's clinical progress.
[2021-09-03] MEDS: traMADol 50 MG TAB PO PRN ×2 (17:30→23:52)
--- NOTE | 2021-09-03 18:12 | P.HPIM ---
History of Present Illness H&P Date: 09/03/21 Chief Complaint: Diffuse abdominal pain. This is a history and physical on a 76-year-old white male with known history of ischemic bowel disease in the past. He does have opiate dependence with Ultram secondary to DDD but stated severe nausea issues. She had significant diffuse lower abdominal pain. Workup in the emergency room showed probable colitis. He is admitted for colitis at this time. IV fluid has helped the patient he feels much improved with hydration but still has moderate amount of pain today. No nausea. Appetite is poor Review of Systems Constitutional: Denies chills, Denies fever Eyes: denies blurred vision, denies pain Ears, nose, mouth and throat: Denies headache, Denies sore throat Cardiovascular: Denies chest pain, Denies shortness of breath Respiratory: Denies cough Gastrointestinal: Reports as per HPI, Reports abdominal pain, Reports diarrhea Musculoskeletal: Denies myalgias Past Medical History Past Medical History: CVA/TIA, GERD/Reflux, Hyperlipidemia, Hypertension, Memory Impairment, Rheumatoid Arthritis (RA) Additional Past Medical History / Comment(s): scarlatina as a child, TIA, vertigo, colitis History of Any Multi-Drug Resistant Organisms: None Reported Past Surgical History: Adenoidectomy, Tonsillectomy Additional Past Surgical History / Comment(s): laminectomy L5 S2, colonoscopy x3. Past Anesthesia/Blood Transfusion Reactions: No Reported Reaction Past Psychological History: Anxiety, Depression Smoking Status: Former smoker Past Alcohol Use History: None Reported Past Drug Use History: Marijuana Additional Drug Use History / Comment(s): Pt reports smoking a joint 2-3 times a day. - Past Family History Father Additional Family Medical History / Comment(s): of old age. Mother Family Medical History: Myocardial Infarction ([place]) Medications and Allergies Home Medications Medication Instructions Recorded Confirmed Type Amitriptyline HCl [Elavil] 100 mg PO HS 04/12/21 09/02/21 History Atorvastatin Calcium [Lipitor] 40 mg PO HS 04/12/21 09/02/21 History Naproxen 500 mg PO BID-W/MEALS 04/12/21 09/02/21 History Sertraline HCl [Zoloft] 150 mg PO HS 04/12/21 09/02/21 History traMADol HCl [Ultram] 50 mg PO Q4H PRN 04/12/21 09/02/21 History Diltiazem Cd [Cardizem CD] 300 mg PO DAILY 09/02/21 09/02/21 History lisinopriL [Zestril] 5 mg PO DAILY 09/02/21 09/02/21 History Allergies Allergy/AdvReac Type Severity Reaction Status Date / Time No Known Allergies Allergy Verified 09/02/21 23:08 Physical Exam Vitals: Vital Signs Temp Pulse Pulse Resp BP BP Pulse Ox 09/03/21 14:22 98.3 F 80 18 132/67 96 09/03/21 07:56 18 09/03/21 07:54 93 L 09/03/21 07:52 18 98 09/03/21 07:06 98.3 F 85 15 113/64 09/03/21 05:06 98.1 F 84 15 118/69 95 09/03/21 02:59 89 16 152/76 98 09/02/21 21:32 98 F 96 16 143/56 99 Intake and Output 09/03/21 09/03/21 09/03/21 06:59 14:59 22:59 Intake Total 130 Balance 130 Intake: Intake, IV Titration 130 Amount Sodium Chloride 0.9% 1, 130 000 ml @ 130 mls/hr IV . Q7H42M [facility] Rx#:[id number] Other: Voiding Method Toilet Toilet # Voids 5 # Bowel Movements 5 Weight 65.771 kg - Constitutional General appearance: no acute distress - EENT Eyes: EOMI - Neck Neck: no lymphadenopathy - Respiratory Respiratory: bilateral: CTA - Cardiovascular Rhythm: regular Heart sounds: normal: S1, S2 Abnormal Heart Sounds: no S3 Gallop - Gastrointestinal General gastrointestinal: soft, no tenderness - Neurologic Neurologic: CNII-XII intact Results CBC & Chem 7: 09/03/21 04:44 09/03/21 04:44 Labs: Abnormal Lab Results - Last 24 Hours (Table) 09/02/21 09/02/21 09/02/21 Range/Units 22:00 22:00 22:00 WBC 13.2 H (3.8-10.6) k/uL RBC (4.30-5.90) m/uL Neutrophils # (Manual) 9.90 H (1.3-7.7) k/uL Monocytes # (Manual) 1.85 H (0-1.0) k/uL Sodium 135 L (137-145) mmol/L Carbon Dioxide 19 L (22-30) mmol/L BUN 33 H (9-20) mg/dL Creatinine 1.36 H (0.66-1.25) mg/dL Glucose 130 H (74-99) mg/dL Plasma Lactic Acid Esau 6.4 H* (0.7-2.0) mmol/L Alkaline Phosphatase 230 H (38-126) U/L Total Protein 6.0 L (6.3-8.2) g/dL Albumin (3.5-5.0) g/dL Ur Specific [place] (1.001-1.035) Urine Protein (Negative) Urine Ketones (Negative) 09/03/21 09/03/21 09/03/21 Range/Units 01:02 01:20 04:44 WBC (3.8-10.6) k/uL RBC 4.27 L (4.30-5.90) m/uL Neutrophils # (Manual) (1.3-7.7) k/uL Monocytes # (Manual) (0-1.0) k/uL Sodium (137-145) mmol/L Carbon Dioxide (22-30) mmol/L BUN (9-20) mg/dL Creatinine (0.66-1.25) mg/dL Glucose (74-99) mg/dL Plasma Lactic Acid Esau 3.6 H* (0.7-2.0) mmol/L Alkaline Phosphatase (38-126) U/L Total Protein (6.3-8.2) g/dL Albumin (3.5-5.0) g/dL Ur Specific [place] >1.050 H (1.001-1.035) Urine Protein Trace H (Negative) Urine Ketones Trace H (Negative) 09/03/21 Range/Units 04:44 WBC (3.8-10.6) k/uL RBC (4.30-5.90) m/uL Neutrophils # (Manual) (1.3-7.7) k/uL Monocytes # (Manual) (0-1.0) k/uL Sodium 134 L (137-145) mmol/L Carbon Dioxide 20 L (22-30) mmol/L BUN 29 H (9-20) mg/dL Creatinine (0.66-1.25) mg/dL Glucose 127 H (74-99) mg/dL Plasma Lactic Acid Esau (0.7-2.0) mmol/L Alkaline Phosphatase 182 H (38-126) U/L Total Protein 5.3 L (6.3-8.2) g/dL Albumin 3.0 L (3.5-5.0) g/dL Ur Specific [place] (1.001-1.035) Urine Protein (Negative) Urine Ketones (Negative) Thrombosis Risk Factor Assmnt - Choose All That Apply Any of the Below Risk Factors Present?: Yes Each Factor Represents 1 point: Sepsis (< 1month) Other Risk Factors: Yes Each Risk Factor Represents 2 Points: Age 61-74 years Thrombosis Risk Factor Assessment Total Risk Factor Score: 3 Thrombosis Risk Factor Assessment Level: Moderate Risk Assessment and Plan (1) Colitis Current Visit: Yes Status: Acute Code(s): K52.9 - NONINFECTIVE GASTROENTERITIS AND COLITIS, UNSPECIFIED SNOMED Code(s): 38797610 (2) Occult blood positive stool Current Visit: Yes Status: Acute Code(s): R19.5 - OTHER FECAL ABNORMALITIES SNOMED Code(s): 96936623 (3) Dehydration Current Visit: No Status: Acute Code(s): E86.0 - DEHYDRATION SNOMED Code(s): 06414997 (4) Lactic acidosis Current Visit: No Status: Acute Code(s): E87.2 - ACIDOSIS SNOMED Code(s): 58732842 Plan: Continue empiric antibiotic treatment. New proper appreciate surgical consult. Advance diet to clear liquids. Reconcile medications. He is a full code. Check CBC and see me in a
[2021-09-03] MEDS: AMITRIPTYLINE HCL 50 MG TAB PO SCH (19:51)
[2021-09-03] MEDS: SERTRALINE 100 MG TAB PO SCH (19:51)
[2021-09-03] MEDS: ATORVASTATIN 40 MG TAB PO SCH (19:51)
[2021-09-04] MEDS: SODIUM CHLORIDE 0.9% 1,000 ML IV SCH ×3 (05:10→23:40)
[2021-09-04] MEDS: traMADol 50 MG TAB PO PRN ×3 (06:27→20:08)
[2021-09-04] MEDS: lisinopriL 5 MG TAB PO SCH (08:22)
[2021-09-04] MEDS: PANTOPRAZOLE 40 MG/10 ML VIAL IV SCH (08:22)
[2021-09-04] MEDS: DILTIAZEM CD 300 MG CAP.ER.24H PO SCH (08:23)
[2021-09-04] MEDS: PIPERACILLIN-TAZOBACTAM 3.375 GM in SODIUM CHLORIDE 0.9% 100 ML IVPB SCH ×3 (08:23→23:11)
--- NOTE | 2021-09-04 08:35 | P.PN ---
Subjective Principal diagnosis: Colitis This is a 76-year-old white male who is essentially admitted for significant colitis. He still has some discomfort. He's been nothing by mouth. Appreciate surgical consult. Objective - Vital Signs Vital signs: Vital Signs Temp 98.3 F 09/04/21 01:24 Pulse 78 09/04/21 01:24 Resp 16 09/04/21 01:24 BP 143/64 09/04/21 01:24 Pulse Ox 96 09/04/21 01:24 Intake & Output 09/03/21 09/04/21 09/04/21 18:59 06:59 18:59 Other: Voiding Method Toilet # Voids 5 3 # Bowel Movements 5 - Constitutional General appearance: Present: thin - EENT Eyes: Absent: abnormal pupil - Neck Neck: Absent: lymphadenopathy - Respiratory Respiratory: bilateral: diminished - Cardiovascular Rhythm: regular Heart sounds: normal: S1, S2 Abnormal Heart Sounds: Absent: S3 Gallop - Gastrointestinal General gastrointestinal: Present: soft. Absent: tenderness - Integumentary Integumentary: Absent: cellulitis - Neurologic Neurologic: Present: CNII-XII intact - Labs CBC & Chem 7: 09/03/21 04:44 09/03/21 04:44 Labs: Microbiology - Last 24 Hours (Table) 09/02/21 23:17 Blood Culture - Preliminary Blood No Growth after 24 hours Assessment and Plan (1) Colitis Current Visit: Yes Status: Acute Code(s): K52.9 - NONINFECTIVE GASTROENTERITIS AND COLITIS, UNSPECIFIED SNOMED Code(s): 57649282 (2) Occult blood positive stool Current Visit: Yes Status: Acute Code(s): R19.5 - OTHER FECAL ABNORMALITIES SNOMED Code(s): 52815095 (3) Dehydration Current Visit: No Status: Acute Code(s): E86.0 - DEHYDRATION SNOMED Code(s): 40512864 (4) Lactic acidosis Current Visit: No Status: Acute Code(s): E87.2 - ACIDOSIS SNOMED Code(s): 52058789 Plan: Continue empiric antibiotic treatment. Appreciate surgical consult Advance diet to clear liquids-once cleared with surgery Reconcile medications. He is a full code. Check CBC and CMP in a.m.
[2021-09-04 10:48] LABS: HCT 33.4 % (39.6-50.0); HGB 10.9 g/dL (13.0-17.0); MCH 30.4 pg (27.0-32.0); MCHC 32.6 g/dL (32.0-37.0); MCV 93.3 fL (80.0-97.0); Mean Platelet Volume 9.3 fL (9.5-12.2); NRBC Per 100 WBC 0 /100 WBCS (0.0-0.0); Platelet Count 223 X 10*3/uL (140-440); RBC 3.58 X 10*6/uL (4.40-5.60); RDW 12.8 % (11.5-14.5); WBC 5.45 X 10*3/uL (4.50-10.00)
[2021-09-04 11:16] LABS: ALT 11 U/L (10-49); AST 13 U/L (14-35); African American GFR (CKD) 97.2 (60.0-200.0); Albumin 3.4 g/dL (3.8-4.9); Alkaline Phosphatase 92 U/L (41-126); BUN/Creat Ratio 18.67 Ratio (12.00-20.00); Blood Urea Nitrogen 16.8 mg/dL (9.0-27.0); Calcium 7.9 mg/dL (8.7-10.3); Carbon Dioxide 19.7 mmol/L (20.0-27.5); Chloride 106 mmol/L (96-109); Globulin 1.7 g/dL (1.6-3.3); Glucose 88 mg/dL (70-110); Non-African American GFR(CKD) 83.8 (60.0-200.0); Potassium 4.1 mmol/L (3.5-5.5); Sodium 139 mmol/L (135-145); Total Bilirubin <0.15 mg/dL (0.30-1.20); Total Protein 5.1 g/dL (6.2-8.2)
--- NOTE | 2021-09-04 13:08 | P.PN ---
Subjective Progress Note Date: 09/04/21 Patient seen and examined at bedside. States he is feeling better. No additional blood in his stool. Denies nausea or vomiting. Objective - Vital Signs Vital signs: Vital Signs Temp 98.3 F 09/04/21 08:00 Pulse 95 09/04/21 08:00 Resp 16 09/04/21 08:00 BP 146/74 09/04/21 08:00 Pulse Ox 95 09/04/21 09:01 Intake & Output 09/03/21 09/04/21 09/04/21 18:59 06:59 18:59 Other: Voiding Method Toilet # Voids 5 3 # Bowel Movements 5 - Constitutional General appearance: Present: cooperative, no acute distress - Gastrointestinal Gastrointestinal Comment(s): Minimal tenderness on palpation, nondistended, no rebound, guarding - Labs CBC & Chem 7: 09/04/21 03:37 09/04/21 03:37 Labs: Abnormal Lab Results - Last 24 Hours (Table) 09/04/21 09/04/21 Range/Units 03:37 03:37 RBC 3.58 L (4.40-5.60) X 10*6/uL Hgb 10.9 L (13.0-17.0) g/dL Hct 33.4 L (39.6-50.0) % MPV 9.3 L (9.5-12.2) fL Carbon Dioxide 19.7 L (20.0-27.5) mmol/L Calcium 7.9 L (8.7-10.3) mg/dL Total Bilirubin <0.15 L (0.30-1.20) mg/dL AST 13 L (14-35) U/L Total Protein 5.1 L (6.2-8.2) g/dL Albumin 3.4 L (3.8-4.9) g/dL Microbiology - Last 24 Hours (Table) 09/02/21 23:17 Blood Culture - Preliminary Blood No Growth after 24 hours Assessment and Plan Plan: 76-year-old male with colitis. The patient overall seems to be improving. His abdominal tenderness is greatly improved. We will advance to clear liquid diet. No plan for acute surgical intervention.
[2021-09-04] MEDS: AMITRIPTYLINE HCL 50 MG TAB PO SCH (20:06)
[2021-09-04] MEDS: SERTRALINE 100 MG TAB PO SCH (20:06)
[2021-09-04] MEDS: ATORVASTATIN 40 MG TAB PO SCH (20:06)
[2021-09-05] MEDS: traMADol 50 MG TAB PO PRN ×3 (05:45→20:11)
[2021-09-05] MEDS: SODIUM CHLORIDE 0.9% 1,000 ML IV SCH ×3 (07:09→21:32)
[2021-09-05] MEDS: PANTOPRAZOLE 40 MG/10 ML VIAL IV SCH (08:18)
[2021-09-05] MEDS: DILTIAZEM CD 300 MG CAP.ER.24H PO SCH (08:18)
[2021-09-05] MEDS: PIPERACILLIN-TAZOBACTAM 3.375 GM in SODIUM CHLORIDE 0.9% 100 ML IVPB SCH ×3 (08:18→23:03)
[2021-09-05] MEDS: lisinopriL 5 MG TAB PO SCH (08:18)
[2021-09-05 08:56] LABS: HCT 35.8 % (39.6-50.0); HGB 11.7 g/dL (13.0-17.0); MCH 29.9 pg (27.0-32.0); MCHC 32.7 g/dL (32.0-37.0); MCV 91.6 fL (80.0-97.0); Mean Platelet Volume 9.2 fL (9.5-12.2); NRBC Per 100 WBC 0 /100 WBCS (0.0-0.0); Platelet Count 230 X 10*3/uL (140-440); RBC 3.91 X 10*6/uL (4.40-5.60); RDW 12.6 % (11.5-14.5); WBC 4.18 X 10*3/uL (4.50-10.00)
[2021-09-05 09:08] LABS: Albumin 3.7 g/dL (3.8-4.9); Albumin/Globulin Ratio 1.95 (1.60-3.17); Anion Gap 11.6 mmol/L (10.00-18.00); BUN/Creat Ratio 7.75 Ratio (12.00-20.00); Blood Urea Nitrogen 6.2 mg/dL (9.0-27.0); Calcium 8.4 mg/dL (8.7-10.3); Carbon Dioxide 21.4 mmol/L (20.0-27.5); Globulin 1.9 g/dL (1.6-3.3); Potassium 4.3 mmol/L (3.5-5.5); Total Bilirubin 0.2 mg/dL (0.30-1.20); Total Protein 5.6 g/dL (6.2-8.2)
--- NOTE | 2021-09-05 13:19 | P.PN ---
Subjective Progress Note Date: 09/05/21 Patient is seen and examined at bedside. Feeling better today than yesterday, abdominal pain is essentially subsided, diarrhea similarly resolving. Denies nausea or vomiting, fever or chills. Voiding without issue. Tolerating clear liquids and starting to feel more hungry. Laboratory studies today are unimpressive, no leukocytosis, hemoglobin stable. Objective - Vital Signs Vital signs: Vital Signs Temp 97.7 F 09/05/21 08:00 Pulse 66 09/05/21 08:00 Resp 16 09/05/21 08:00 BP 154/75 09/05/21 08:00 Pulse Ox 97 09/05/21 08:00 Intake & Output 09/04/21 09/05/21 09/05/21 18:59 06:59 18:59 Intake Total 1000 500 Balance 1000 500 Intake: Intake, IV Titration 500 Amount Piperacillin-Tazobactam 3 100 .375 gm In Sodium Chloride 0.9% 100 ml @ 25 mls/hr IVPB Q8HR [facility] Rx# :[id number] Sodium Chloride 0.9% 1, 400 000 ml @ 130 mls/hr IV . Q7H42M [facility] Rx#:[id number] Oral 1000 Other: # Voids 3 3 - Constitutional General appearance: Present: average body habitus, cooperative - EENT Eyes: Present: PERRLA ENT: Present: hearing grossly normal - Respiratory Respiratory: bilateral: CTA - Cardiovascular Rhythm: regular - Gastrointestinal Gastrointestinal Comment(s): Abdomen is soft, nontender to palpation, no guarding rebound or distention. General gastrointestinal: Present: soft - Neurologic Neurologic: Present: CNII-XII intact - Psychiatric Psychiatric: Present: A&O x's 3, appropriate affect, intact judgment & insight - Labs CBC & Chem 7: 09/05/21 04:07 09/05/21 04:07 Labs: Abnormal Lab Results - Last 24 Hours (Table) 09/05/21 09/05/21 Range/Units 04:07 04:07 WBC 4.18 L (4.50-10.00) X 10*3/uL RBC 3.91 L (4.40-5.60) X 10*6/uL Hgb 11.7 L (13.0-17.0) g/dL Hct 35.8 L (39.6-50.0) % MPV 9.2 L (9.5-12.2) fL BUN 6.2 L (9.0-27.0) mg/dL BUN/Creatinine Ratio 7.75 L (12.00-20.00) Ratio Calcium 8.4 L (8.7-10.3) mg/dL Total Bilirubin 0.20 L (0.30-1.20) mg/dL Total Protein 5.6 L (6.2-8.2) g/dL Albumin 3.7 L (3.8-4.9) g/dL Microbiology - Last 24 Hours (Table) 09/02/21 23:17 Blood Culture - Preliminary Blood No Growth after 48 hours Assessment and Plan Assessment: 76-year-old gentleman with colitis on presentation suggested on computed tomography scan. 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 Differential would include infectious colitis which seems more likely given absence of hematochezia and resolution of symptoms with antibiotics. Abdominal exam today is benign, no evidence of peritonitis. Diarrhea resolving. Feeling hungry, appears hemodynamically stable and afebrile. He reports a colonoscopy approximately 4 years ago that was normal, indication was polyp surveillance. Advance to soft diet today, if no issues with tolerance to be okay for discharge from a surgical standpoint. Follow-up with primary care within 1 week of discharge. Antibiotics per admitting service, would recommend a 7 day course to be completed on discharge. Augmentin would make for an easy oral equivalent. Time with Patient: Greater than 30
[2021-09-05] MEDS: AMITRIPTYLINE HCL 50 MG TAB PO SCH (20:11)
[2021-09-05] MEDS: SERTRALINE 100 MG TAB PO SCH (20:11)
[2021-09-05] MEDS: ATORVASTATIN 40 MG TAB PO SCH (20:11)
--- NOTE | 2021-09-05 20:30 | P.PN ---
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 He does have opiate dependence with Ultram secondary to DDD but stated severe nausea issues. She had significant diffuse lower abdominal pain. Workup in the emergency room showed probable colitis. He is admitted for colitis at this time. IV fluid has helped the patient he feels much improved with hydration but still has moderate amount of pain today. Patient reports marked improvement in abdominal pain; has been evaluated by surgery and is recommended diet advancement to soft with plans to discharge in next 24 hours if continues to tolerate diet Objective - Vital Signs Vital signs: Vital Signs Temp 97.7 F 09/05/21 08:00 Pulse 66 09/05/21 08:00 Resp 16 09/05/21 08:00 BP 154/75 09/05/21 08:00 Pulse Ox 97 09/05/21 08:00 Intake & Output 09/04/21 09/05/21 09/05/21 18:59 06:59 18:59 Intake Total 1000 500 Balance 1000 500 Intake: Intake, IV Titration 500 Amount Piperacillin-Tazobactam 3 100 .375 gm In Sodium Chloride 0.9% 100 ml @ 25 mls/hr IVPB Q8HR [facility] Rx# :[id number] Sodium Chloride 0.9% 1, 400 000 ml @ 130 mls/hr IV . Q7H42M [facility] Rx#:[id number] Oral 1000 Other: # Voids 3 3 - Exam - Constitutional General appearance: Present: average body habitus, cooperative, no acute distress - EENT Eyes: Present: anicteric sclerae, EOMI, PERRLA, normal appearance ENT: Present: hearing grossly normal, normal oropharynx Ears: bilateral: normal - Neck Neck: Present: normal ROM. Absent: lymphadenopathy, rigidity, thyromegaly Carotids: negative: bruit present Thyroid: bilateral: normal size, negative: enlarged, nodule - Respiratory Respiratory: bilateral: CTA, negative: rales, rhonchi, wheezing - Cardiovascular Rhythm: regular Heart sounds: normal: S1, S2 Abnormal Heart Sounds: Absent: systolic murmur, diastolic murmur - Gastrointestinal General gastrointestinal: Present: normal bowel sounds, soft. Absent: distended, organomegaly, tenderness - Genitourinary Genitourinary Comment(s): deferred - Integumentary Integumentary: Present: normal turgor. Absent: jaundiced, rash, ulcer - Neurologic Neurologic: Present: CNII-XII intact. Absent: focal deficits - Musculoskeletal Musculoskeletal: Present: gait normal, strength equal bilaterally - Psychiatric Psychiatric: Present: A&O x's 3, appropriate affect, intact judgment & insight - Labs CBC & Chem 7: 09/05/21 04:07 09/05/21 04:07 Labs: Abnormal Lab Results - Last 24 Hours (Table) 09/05/21 09/05/21 Range/Units 04:07 04:07 WBC 4.18 L (4.50-10.00) X 10*3/uL RBC 3.91 L (4.40-5.60) X 10*6/uL Hgb 11.7 L (13.0-17.0) g/dL Hct 35.8 L (39.6-50.0) % MPV 9.2 L (9.5-12.2) fL BUN 6.2 L (9.0-27.0) mg/dL BUN/Creatinine Ratio 7.75 L (12.00-20.00) Ratio Calcium 8.4 L (8.7-10.3) mg/dL Total Bilirubin 0.20 L (0.30-1.20) mg/dL Total Protein 5.6 L (6.2-8.2) g/dL Albumin 3.7 L (3.8-4.9) g/dL Microbiology - Last 24 Hours (Table) 09/02/21 23:17 Blood Culture - Preliminary Blood No Growth after 48 hours Assessment and Plan Assessment: (1) Colitis Current Visit: Yes Status: Acute Code(s): K52.9 - NONINFECTIVE GASTROENTERITIS AND COLITIS, UNSPECIFIED SNOMED Code(s): 32182423 (2) Occult blood positive stool Current Visit: Yes Status: Acute Code(s): R19.5 - OTHER FECAL ABNORMALITIES SNOMED Code(s): 08578724 (3) Dehydration Current Visit: No Status: Acute Code(s): E86.0 - DEHYDRATION SNOMED Code(s): 03480576 (4) Lactic acidosis Current Visit: No Status: Acute Code(s): E87.2 - ACIDOSIS SNOMED Code(s): 25482511 Continue to advance diet to soft; no labs have been reviewed and remained stable; patient has been evaluated by general surgery and recommended possible discharge in next 24 hours if continues to tolerate diet; patient remains on IV Zosyn empirically DVT prophylaxis; SCDs CODE STATUS; full code
[2021-09-06] MEDS: traMADol 50 MG TAB PO PRN (01:55)
[2021-09-06 02:55] VITALS: RESP 16
[2021-09-06] MEDS: lisinopriL 5 MG TAB PO SCH (08:01)
[2021-09-06] MEDS: PANTOPRAZOLE 40 MG/10 ML VIAL IV SCH (08:01)
[2021-09-06] MEDS: PIPERACILLIN-TAZOBACTAM 3.375 GM in SODIUM CHLORIDE 0.9% 100 ML IVPB SCH (08:02)
[2021-09-06] MEDS: DILTIAZEM CD 300 MG CAP.ER.24H PO SCH (08:05)
[2021-09-06 09:16] VITALS: BP 161/85; PULSE 96; TEMP 97.9
--- NOTE | 2021-09-21 10:16 | P.DS ---
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 He does have opiate dependence with Ultram secondary to DDD but stated severe nausea issues. She had significant diffuse lower abdominal pain. Workup in the emergency room showed probable colitis. He is admitted for colitis at this time. IV fluid has helped the patient he feels much improved with hydration but still has moderate amount of pain today. Patient reports marked improvement in abdominal pain; has been evaluated by surgery and is recommended diet advancement to soft with plans to discharge in next 24 hours if continues to tolerate diet patient tolerated diet well and pain resolved with conservative management; she was dc'ed home in a stable condition Patient Condition at Discharge: Fair Plan - Discharge Summary New Discharge Prescriptions: New Amoxicillin/Potassium Clav [Augmentin 875-125 Tablet] 1 tab PO Q12HR 1 Days #6 tab Continue Sertraline HCl [Zoloft] 150 mg PO HS Atorvastatin Calcium [Lipitor] 40 mg PO HS Amitriptyline HCl [Elavil] 100 mg PO HS Naproxen 500 mg PO BID-W/MEALS traMADol HCl [Ultram] 50 mg PO Q4H PRN PRN Reason: Pain lisinopriL [Zestril] 5 mg PO DAILY Diltiazem Cd [Cardizem CD] 300 mg PO DAILY Discharge Medication List Amitriptyline HCl [Elavil] 100 mg PO HS 04/12/21 [History] Atorvastatin Calcium [Lipitor] 40 mg PO HS 04/12/21 [History] Naproxen 500 mg PO BID-W/MEALS 04/12/21 [History] Sertraline HCl [Zoloft] 150 mg PO HS 04/12/21 [History] traMADol HCl [Ultram] 50 mg PO Q4H PRN 04/12/21 [History] Diltiazem Cd [Cardizem CD] 300 mg PO DAILY 09/02/21 [History] lisinopriL [Zestril] 5 mg PO DAILY 09/02/21 [History] Amoxicillin/Potassium Clav [Augmentin 875-125 Tablet] 1 tab PO Q12HR 1 Days #6 tab 09/06/21 [Rx] Follow up Appointment(s)/Referral(s): Robin Galalgher MD [Primary Care Provider] - 1-2 days (office closed at time of discharge. Please call to schedule appointment) Patient Instructions/Handouts: Diet for Stomach Ulcers and Gastritis (GEN), Colitis (ED) Discharge Disposition: HOME SELF-CARE
== END 2021-09-06 10:57 | disposition home or self-care (01) ==
LOC: EC 21:25 → 4SSUR 23:57 → INTOOBSV 23:57 → 4SSUR 09-03 01:22 → UNDODISIN 09-06 10:57
PROVIDERS: ADMIT Family Medicine; ATTEND Family Medicine
DX: K52.9 Noninfective gastroenteritis and colitis, unspecified (principal); N17.9 Acute kidney failure, unspecified; E87.2 Acidosis; E86.0 Dehydration; F11.20 Opioid dependence, uncomplicated; K21.9 Gastro-esophageal reflux disease without esophagitis; E78.5 Hyperlipidemia, unspecified; I10 Essential (primary) hypertension; M06.9 Rheumatoid arthritis, unspecified; R41.3 Other amnesia; F41.9 Anxiety disorder, unspecified; F32.A Depression, unspecified; D72.829 Elevated white blood cell count, unspecified; R11.0 Nausea; K55.9 Vascular disorder of intestine, unspecified; R42 Dizziness and giddiness; Z86.19 Personal history of other infectious and parasitic diseases; Z86.73 Personal history of transient ischemic attack (TIA), and cerebral infarction without residual deficits; Z87.891 Personal history of nicotine dependence; Z79.899 Other long term (current) drug therapy; Z79.1 Long term (current) use of non-steroidal anti-inflammatories (NSAID); Z71.3 Dietary counseling and surveillance; Z82.49 Family history of ischemic heart disease and other diseases of the circulatory system; Z83.79 Family history of other diseases of the digestive system
CPT/HCPCS: 96376 ×4; 96361 ×3; 96366 ×4; 96365; 96375 ×2; 99291; 36415; 94760 ×2; 80053 ×4; 83605 ×2; 83690; 84100; 85025 ×2; 85027 ×2; 82272; 81003; 87040; 87635; 74174; G0378 ×4; J2543 ×5; J2270; J2405; J1170; C9113 ×4; Q9967

== ENCOUNTER → 2023-12-30 | Outpatient (CLI) | payer MEDICARE ==
--- NOTE | 2024-01-13 15:35 | CT ---
EXAMINATION TYPE: CT brain wo con CT DLP: 1123.6 mGycm, Automated exposure control for dose reduction was used. DATE OF EXAM: 12/30/2023 2:57 PM COMPARISON: CT 06/09/2021. CLINICAL INDICATION:Male, 78 years old with history of R25.1 TREMOR, TREMORS TECHNIQUE: Brain: Axial CT images of the brain were obtained with coronal and sagittal reformats created and rev iewed. Contrast used: None. Oral contrast used: None. FINDINGS: Extra-axial spaces: No abnormal extra-axial fluid collections. Basilar cisterns are patent. Ventricular system: Stable mild prominence of the ventricles likely sequela of brain volume loss. Cerebral parenchyma: No increased attenuation to suggest acute intraparenchymal hemorrhage. The gra y-white matter interface appears maintained. Mild/moderate generalized brain atrophy. Scattered hyp oattenuating areas are seen within the cerebral white matter, nonspecific but most often seen with ch ronic microvascular ischemic changes; mild in degree. Cerebellum: No acute abnormality. Mass effect: No evidence of mass effect or midline shift. Intracranial vasculature: Atherosclerotic calcifications of the larger arteries near the skull base. Soft tissues: No acute or concerning abnormality. Visualized orbits: Orbital contents appear grossly intact. Calvarium/osseous structures: No evidence of calvarial fracture. Partially seen cystic structure towa rds the base of the dens posteriorly, also seen on prior. Paranasal sinuses and mastoid air cells: Clear. Moderate nasal septal deviation to the left. MRI is more sensitive for detecting acute processes such as infarct, and may be considered if clinica lly warranted. IMPRESSION: 1. No acute intracranial CT abnormality. 2. Mild atrophy and chronic microvascular ischemic changes.
== END | disposition home or self-care (01) ==
LOC: RADCTMAIN 14:42
PROVIDERS: ATTEND Family Medicine
DX: I67.82 Cerebral ischemia (principal); R25.1 Tremor, unspecified
CPT/HCPCS: 70450

== ENCOUNTER 2024-01-23 20:48 | Emergency (ER) | payer MEDICARE ==
[2024-01-23 21:03] VITALS: TEMP 97.5
--- NOTE | 2024-01-23 21:06 | ED ---
General Adult HPI - General Source: patient, family, RN notes reviewed Mode of arrival: wheelchair Limitations: no limitations <Aaron Looney - Last Filed: 01/23/24 21:06> <Chau Santiago - Last Filed: 01/24/24 01:49> - General Chief complaint: Weakness Stated complaint: Weakness Time Seen by Provider: 01/23/24 21:00 - History of Present Illness Initial comments: Quick note 78-year-old male presenting to the ED with a chief complaint of lightheadedness and multiple falls. Per patient's , whenever the patient stands up he becomes lightheaded and will become prone to falling. Reports over the past few days this has increased in severity and patient has been falling more and reports multiple head injuries. Denies blood thinner baby aspirin use. Patient currently reports headache. Denies any chest pain or shortness of breath. (Aaron Looney) 78 yo presents with lightheadedness. He states this is a chronic issue. He had to episodes of lightheadedness yesterday with minor fall no injury. Patient believes he is dehydrated states he does not eat and drink like he should and believes this is the cause of his symptoms. He denies headache. Denies focal numbness or weakness. Denies chest pain. Denies fever. (Chau Santiago) - Related Data Home Medications Medication Instructions Recorded Confirmed Amitriptyline HCl [Elavil] 100 mg PO HS 04/12/21 09/02/21 Atorvastatin Calcium [Lipitor] 40 mg PO HS 04/12/21 09/02/21 Naproxen 500 mg PO BID-W/MEALS 04/12/21 09/02/21 Sertraline HCl [Zoloft] 150 mg PO HS 04/12/21 09/02/21 traMADol HCl [Ultram] 50 mg PO Q4H PRN 04/12/21 09/02/21 Diltiazem Cd [Cardizem CD] 300 mg PO DAILY 09/02/21 09/02/21 lisinopriL [Zestril] 5 mg PO DAILY 09/02/21 09/02/21 Previous Rx's Medication Instructions Recorded Amoxicillin/Potassium Clav 1 tab PO Q12HR 1 Days #6 tab 09/06/21 [Augmentin 875-125 Tablet] Allergies Allergy/AdvReac Type Severity Reaction Status Date / Time No Known Allergies Allergy Verified 01/23/24 21:03 Review of Systems ROS Other: All systems not noted in ROS Statement are negative. <AureAaron - Last Filed: 01/23/24 21:06> ROS Other: All systems not noted in ROS Statement are negative. <Chau Santiago - Last Filed: 01/24/24 01:49> ROS Statement: Those systems with pertinent positive or pertinent negative responses have been documented in the HPI. 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 Past Anesthesia/Blood Transfusion Reactions: No Reported Reaction Past Psychological History: Anxiety, Depression Smoking Status: Former smoker Past Alcohol Use History: None Reported Past Drug Use History: Marijuana - Past Family History Father Additional Family Medical History / Comment(s): of old age. Mother Family Medical History: Myocardial Infarction (CO) <AureAaron - Last Filed: 01/23/24 21:06> General Exam Limitations: no limitations <AureAaron - Last Filed: 01/23/24 21:06> General appearance: alert, in no apparent distress Head exam: Present: atraumatic, normocephalic Eye exam: Present: normal appearance, PERRL ENT exam: Present: mucous membranes dry Neck exam: Present: normal inspection. Absent: tenderness, meningismus Respiratory exam: Present: normal lung sounds bilaterally. Absent: respiratory distress, wheezes Cardiovascular Exam: Present: regular rate, normal rhythm GI/Abdominal exam: Present: soft. Absent: distended Neurological exam: Present: alert, oriented X3, CN II-XII intact. Absent: motor sensory deficit Psychiatric exam: Present: normal affect, normal mood Skin exam: Present: warm, dry, intact, normal color <Chau Santiago - Last Filed: 01/24/24 01:49> - General Exam Comments Initial Comments: Visual Physical Exam Vital signs reviewed General: Well-appearing, nontoxic, no acute distress. Head: Normocephalic, atraumatic Eyes: PERRLA, EOMI ENT: Airway patent Chest: Nonlabored breathing Skin: No visual rash, normal skin tone Neuro: Alert and oriented 3 Musculoskeletal: No gross abnormalities (Aaron Looney) Course Vital Signs 01/23/24 01/24/24 20:59 00:48 Temperature 97.5 F L Pulse Rate 68 70 Respiratory 18 16 Rate Blood Pressure 145/95 110/96 O2 Sat by Pulse 97 97 Oximetry Medical Decision Making <Aaron Looney - Last Filed: 01/23/24 21:06> - Lab Data Result diagrams: 01/23/24 22:22 01/23/24 22:22 <Chau Santiago - Last Filed: 01/24/24 01:49> - Medical Decision Making Quicknote portion performed. Signed Aaron Looney PA-C (Aaron Looney) Was pt. sent in by a medical professional or institution (NATHAN Carmona, INTRUSION ANALYST, urgent care, hospital, or halfway...) When possible be specific @ -No Did you speak to anyone other than the patient for history (EMS, parent, family, police, friend...)? What history was obtained from this source @ -No Did you review nursing and triage notes (agree or disagree)? Why? @ -I reviewed and agree with nursing and triage notes Were old charts reviewed (outside hosp., previous admission, EMS record, old EKG, old radiological studies, urgent care reports/EKG's, halfway records)? Report findings @ -No old charts were reviewed M differential weakness EKG interpreted by me (3pts min.). @ -[EKG: Sinus rhythm with a rate of 60, MN interval 170, QRS duration 105, QTc 395, no ST segment changes. X-rays interpreted by me (1pt min.). @X-ray negative for acute cardiopulmonary findings. CT interpreted by me (1pt min.). @Brain negative for acute findings. U/S interpreted by me (1pt. min.). @ -None done What testing was considered but not performed or refused? (CT, X-rays, U/S, labs)? Why? @ -None What meds were considered but not given or refused? Why? @ -None Did you discuss the management of the patient with other professionals (professionals i.e. , PA, INTRUSION ANALYST, lab, RT, psych nurse, social media coordinator, napkin band wrapper, teacher, tactical/mobile watch officer, director of casework)? Give summary @ -No Was smoking cessation discussed for >3mins.? @ -No Was critical care preformed (if so, how long)? @ -No Were there social determinants of health that impacted care today? How? (Homelessness, low income, unemployed, alcoholism, drug addiction, transportation, low edu. Level, literacy, decrease access to med. care, care home, rehab)? @ -No Was there de-escalation of care discussed even if they declined (Discuss DNR or withdrawal of care, Hospice)? DNR status @ -No What co-morbidities impacted this encounter? (DM, HTN, Smoking, COPD, CAD, Cancer, CVA, ARF, Chemo, Hep., AIDS, mental health diagnosis, sleep apnea, morbid obesity)? @ -None Was patient admitted / discharged? Hospital course, mention meds given and route, prescriptions, significant lab abnormalities, going to OR and other pertinent info. @ -[78-year-old male with lightheadedness, dehydration. Patient's workup is unremarkable including CT brain, chest x-ray, EKG, laboratory testing. Patient given IV fluids in the emergency department and does feel significantly better. Patient will monitor symptoms at home he will increase his oral intake and f ollow-up with his primary care provider. Undiagnosed new problem with uncertain prognosis? @ -No Drug Therapy requiring intensive monitoring for toxicity (Heparin, Nitro, Insulin, Cardizem)? @ -No Were any procedures done? @ -No Diagnosis/symptom? @dehydration Acute, or Chronic, or Acute on Chronic? @Acute Uncomplicated (without systemic symptoms) or Complicated (systemic symptoms)? @ -Default Side effects of treatment? @ -No Exacerbation, Progression, or Severe Exacerbation? @ -No Poses a threat to life or bodily function? How? (Chest pain, [place], CO, pneumonia, PE, COPD, DKA, ARF, appy, cholecystitis, CVA, Diverticulitis, Homicidal, Suicidal, threat to staff... and all critical care pts) @ -No (Chau Santiago) - Lab Data Lab Results 01/23/24 01/23/24 01/23/24 Range/Units 22:22 22:22 22:22 WBC 8.5 (3.8-10.6) k/uL RBC 4.49 (4.30-5.90) m/uL Hgb 14.0 (13.0-17.5) gm/dL Hct 43.9 (39.0-53.0) % MCV 97.6 (80.0-100.0) fL MCH 31.1 (25.0-35.0) pg MCHC 31.8 (31.0-37.0) g/dL RDW 13.2 (11.5-15.5) % Plt Count 347 (150-450) k/uL MPV 7.4 Neutrophils % 79 % Lymphocytes % 11 % Monocytes % 7 % Eosinophils % 1 % Basophils % 1 % Neutrophils # 6.7 (1.3-7.7) k/uL Lymphocytes # 0.9 L (1.0-4.8) k/uL Monocytes # 0.6 (0-1.0) k/uL Eosinophils # 0.1 (0-0.7) k/uL Basophils # 0.1 (0-0.2) k/uL PT 10.5 (10.0-12.5) sec INR 0.9 (<1.2) APTT 23.8 (22.0-30.0) sec Sodium 140 (137-145) mmol/L Potassium 4.3 (3.5-5.1) mmol/L Chloride 105 (98-107) mmol/L Carbon Dioxide 25 (22-30) mmol/L Anion Gap 10 mmol/L BUN 14 (9-20) mg/dL Creatinine 0.78 (0.66-1.25) mg/dL Est GFR (CKD-EPI)AfAm >90 (>60 ml/min/1.73 sqM) Est GFR (CKD-EPI)NonAf 88 (>60 ml/min/1.73 sqM) Glucose 138 H (74-99) mg/dL Calcium 9.5 (8.4-10.2) mg/dL Magnesium 2.1 (1.6-2.3) mg/dL Total Bilirubin 0.4 (0.2-1.3) mg/dL AST 21 (17-59) U/L ALT 15 (4-49) U/L Alkaline Phosphatase 67 (38-126) U/L Troponin I (0.000-0.034) ng/mL Total Protein 6.8 (6.3-8.2) g/dL Albumin 4.4 (3.5-5.0) g/dL Urine Color Urine Appearance (Clear) Urine pH (5.0-8.0) Ur Specific [place] (1.001-1.035) Urine Protein (Negative) Urine Glucose (UA) (Negative) Urine Ketones (Negative) Urine Blood (Negative) Urine Nitrite (Negative) Urine Bilirubin (Negative) Urine Urobilinogen (<2.0) mg/dL Ur Leukocyte Esterase (Negative) 01/23/24 01/24/24 Range/Units 22:22 01:32 WBC (3.8-10.6) k/uL RBC (4.30-5.90) m/uL Hgb (13.0-17.5) gm/dL Hct (39.0-53.0) % MCV (80.0-100.0) fL MCH (25.0-35.0) pg MCHC (31.0-37.0) g/dL RDW (11.5-15.5) % Plt Count (150-450) k/uL MPV Neutrophils % % Lymphocytes % % Monocytes % % Eosinophils % % Basophils % % Neutrophils # (1.3-7.7) k/uL Lymphocytes # (1.0-4.8) k/uL Monocytes # (0-1.0) k/uL Eosinophils # (0-0.7) k/uL Basophils # (0-0.2) k/uL PT (10.0-12.5) sec INR (<1.2) APTT (22.0-30.0) sec Sodium (137-145) mmol/L Potassium (3.5-5.1) mmol/L Chloride (98-107) mmol/L Carbon Dioxide (22-30) mmol/L Anion Gap mmol/L BUN (9-20) mg/dL Creatinine (0.66-1.25) mg/dL Est GFR (CKD-EPI)AfAm (>60 ml/min/1.73 sqM) Est GFR (CKD-EPI)NonAf (>60 ml/min/1.73 sqM) Glucose (74-99) mg/dL Calcium (8.4-10.2) mg/dL Magnesium (1.6-2.3) mg/dL Total Bilirubin (0.2-1.3) mg/dL AST (17-59) U/L ALT (4-49) U/L Alkaline Phosphatase (38-126) U/L Troponin I <0.012 (0.000-0.034) ng/mL Total Protein (6.3-8.2) g/dL Albumin (3.5-5.0) g/dL Urine Color Colorless Urine Appearance Clear (Clear) Urine pH 7.0 (5.0-8.0) Ur Specific [place] 1.009 (1.001-1.035) Urine Protein Negative (Negative) Urine Glucose (UA) Negative (Negative) Urine Ketones Negative (Negative) Urine Blood Negative (Negative) Urine Nitrite Negative (Negative) Urine Bilirubin Negative (Negative) Urine Urobilinogen <2.0 (<2.0) mg/dL Ur Leukocyte Esterase Negative (Negative) Disposition <Aaron Looney - Last Filed: 01/23/24 21:06> Is patient prescribed a controlled substance at d/c from ED?: No Time of Disposition: 01:49 <Chau Santiago - Last Filed: 01/24/24 01:49> Clinical Impression: Dizziness, Dehydration Disposition: HOME SELF-CARE Condition: Fair Instructions (If sedation given, give patient instructions): Dizziness (ED), Dehydration (ED) Referrals: Robin Gallagher MD [Primary Care Provider] - 1-2 days
--- NOTE | 2024-01-23 22:41 | CT ---
EXAMINATION TYPE: CT brain john roldan con DATE OF EXAM: 01/23/2024 COMPARISON: 12/30/2023 HISTORY: pt presents with increased weakness and falls fell and hit head 2x in the last 2 days, not o n thinners. pt has had decreased oral intake for the past 4 days, CT DLP: 1321.1 mGycm, Automated exposure control for dose reduction was used. CONTRAST: Patient injected with 0 mL of Isovue 300. CT of the brain is performed utilizing 3 mm thick sections through the posterior fossa and 3 mm thick sections through the remaining calvarium. Study is performed within 24 hours of arrival to the hospital. No abnormal hyperdensity is present to suggest an acute intracranial hemorrhage. No mass lesion is evident. No acute infarcts are evident. There is some periventricular white matter hypodensity, likely on the basis of chronic white matter ischemic changes. Findings appear stable from comparison. Ventricles and sulci are mildly prominent for the patient age. Some soft tissue swelling along the right parietal vertex Paranasal sinuses and mastoid air cells within the [id number] are clear. IMPRESSIONS: 1. Atrophy with chronic appearing periventricular white matter ischemic changes. CT cervical spine. COMPARISON: None CT of the cervical spine is performed in the axial plane at 2 mm thick sections. Reconstructed image s in the coronal, and sagittal plane are reviewed on the computer. No acute fractures are evident. Vertebral body alignment is straightened There is loss of disc height at C3-4, C4-5, C5-6, and C6-7. Some posterior endplate spurring is noted at these levels. No AP spinal canal stenosis. Vertebral body heights are preserved. There is an erosion within the C2 vertebral body. This has smooth borders and appears chronic. Uncovertebral joint hypertrophy and endplate spurring is noted. Uncovertebral joint hypertrophy is ch urning to bilateral foraminal stenosis. IMPRESSION: 1. Chronic degenerative disc changes. 2. Chronic erosion within the C2 vertebral body dens junction. 3. No acute osseous abnormality identified. 4. Multilevel Foraminal stenosis
--- NOTE | 2024-01-23 22:42 | XR ---
EXAMINATION TYPE: XR chest 2V DATE OF EXAM: 01/23/2024 COMPARISON: 04/12/2021 INDICATION: Chest pain TECHNIQUE: Frontal and lateral views of the chest are obtained. FINDINGS: The heart size is normal. The pulmonary vasculature is normal. The lungs are clear. No pneumothorax is evident. No displaced rib fractures identified. Air distended stomach and/or bowel is under the left diaphragm IMPRESSION: 1. No acute pulmonary process.
[2024-01-23 23:12] LABS: Basophils # (A) 0.1 k/uL (0-0.2); Basophils % (A) 1 %; Eosinophils # (A) 0.1 k/uL (0-0.7); Eosinophils % (A) 1 %; HCT 43.9 % (39.0-53.0); Lymphocytes # (A) 0.9 k/uL (1.0-4.8); Lymphocytes % (A) 11 %; MCH 31.1 pg (25.0-35.0); MCHC 31.8 g/dL (31.0-37.0); MCV 97.6 fL (80.0-100.0); Mean Platelet Volume 7.4; Monocytes # (A) 0.6 k/uL (0-1.0); Monocytes % (A) 7 %; Neutrophils # (A) 6.7 k/uL (1.3-7.7); Neutrophils % (A) 79 %; Platelet Count 347 k/uL (150-450); RBC 4.49 m/uL (4.30-5.90); RDW 13.2 % (11.5-15.5); WBC 8.5 k/uL (3.8-10.6)
[2024-01-23 23:21] LABS: ALT 15 U/L (4-49); AST 21 U/L (17-59); African American GFR (CKD) >90 (>60 ml/min/1.73 sqM); Albumin 4.4 g/dL (3.5-5.0); Alkaline Phosphatase 67 U/L (38-126); Anion Gap 10 mmol/L; Blood Urea Nitrogen 14 mg/dL (9-20); Calcium 9.5 mg/dL (8.4-10.2); Carbon Dioxide 25 mmol/L (22-30); Chloride 105 mmol/L (98-107); Glucose 138 mg/dL (74-99); Magnesium 2.1 mg/dL (1.6-2.3); Non-African American GFR(CKD) 88 (>60 ml/min/1.73 sqM); Potassium 4.3 mmol/L (3.5-5.1); Sodium 140 mmol/L (137-145); Total Bilirubin 0.4 mg/dL (0.2-1.3); Total Protein 6.8 g/dL (6.3-8.2)
[2024-01-24] LABS: INR 0.9 (<1.2); Partial Thromboplastin Time 23.8 sec (22.0-30.0); Prothrombin Time 10.5 sec (10.0-12.5)
[2024-01-24] MEDS: SODIUM CHLORIDE 0.9% 1,000 ML IV ONE (00:45)
[2024-01-24 00:50] VITALS: RESP 16
[2024-01-24 01:47] LABS: Appearance,Urine Clear (Clear); Bilirubin,Urine Negative (Negative); Blood,Urine Negative (Negative); Color,Urine Colorless; Glucose,Urine (UA) Negative (Negative); Ketones,Urine Negative (Negative); Leukocyte Esterase,Urine Negative (Negative); Nitrite,Urine Negative (Negative); Protein,Urine Negative (Negative); Specific Gravity,Urine 1.009 (1.001-1.035); Urobilinogen,Urine <2.0 mg/dL (<2.0)
[2024-01-24 01:58] VITALS: BP 142/81; PULSE 71
== END 2024-01-24 01:58 | disposition home or self-care (01) ==
LOC: EC 20:48
DX: E86.0 Dehydration (principal); R42 Dizziness and giddiness; Z59.00 Homelessness unspecified; Z59.6 Low income; Z66 Do not resuscitate; Z86.73 Personal history of transient ischemic attack (TIA), and cerebral infarction without residual deficits; Z87.891 Personal history of nicotine dependence
CPT/HCPCS: 36415; 70450; 71046; 72125; 80053; 81003; 83735; 84484; 85025; 85610; 85730; 93005; 96360; 99285

== ENCOUNTER 2024-06-29 23:07 | Inpatient (IN) | payer MEDICARE ==
[2024-06-30] MEDS: ONDANSETRON 4 MG/2 ML VIAL IVP STA (00:13)
[2024-06-30] MEDS: MORPHINE SULFATE 4 MG/ML SYRINGE IVP STA (00:13)
[2024-06-30] MEDS: PANTOPRAZOLE 40 MG/10 ML VIAL IVP STA (00:13)
[2024-06-30] MEDS: SODIUM CHLORIDE 0.9% 1,000 ML IV STA (00:14)
[2024-06-30 00:39] LABS: Basophils % (A) 0 %; Eosinophils # (A) 0.1 k/uL (0-0.7); Eosinophils % (A) 0 %; HCT 47.6 % (39.0-53.0); HGB 15.7 gm/dL (13.0-17.5); Lymphocytes # (A) 0.8 k/uL (1.0-4.8); Lymphocytes % (A) 3 %; MCH 31.5 pg (25.0-35.0); MCHC 33.1 g/dL (31.0-37.0); MCV 95.2 fL (80.0-100.0); Mean Platelet Volume 8.2; Monocytes # (A) 1.2 k/uL (0-1.0); Monocytes % (A) 4 %; Neutrophils % (A) 92 %; Platelet Count 489 k/uL (150-450); RDW 13.7 % (11.5-15.5); WBC 26.2 k/uL (3.8-10.6)
[2024-06-30 01:03] LABS: AST 26 U/L (17-59); African American GFR (CKD) 89 (>60 ml/min/1.73 sqM); Albumin 4.9 g/dL (3.5-5.0); Alkaline Phosphatase 99 U/L (38-126); Amylase 95 U/L (30-110); Anion Gap 12 mmol/L; Blood Urea Nitrogen 15 mg/dL (9-20); Calcium 10.4 mg/dL (8.4-10.2); Carbon Dioxide 22 mmol/L (22-30); Chloride 104 mmol/L (98-107); Glucose 158 mg/dL (74-99); Lipase 104 U/L (23-300); Non-African American GFR(CKD) 77 (>60 ml/min/1.73 sqM); Potassium 4.1 mmol/L (3.5-5.1); Sodium 138 mmol/L (137-145); Total Bilirubin 0.5 mg/dL (0.2-1.3); Total Protein 7.7 g/dL (6.3-8.2)
--- NOTE | 2024-06-30 01:04 | ED ---
General Adult HPI - General Chief complaint: Shortness of Breath Stated complaint: Weakness/SOB Time Seen by Provider: 06/29/24 23:45 Source: patient, EMS, RN notes reviewed, old records reviewed Mode of arrival: EMS Limitations: no limitations - History of Present Illness Initial comments: 79-year-old male who presents emergency department complaining of abdominal cramping, diarrhea. Has a history of hypertension, memory impairment, hyperl ipidemia, "ischemic colitis." States he usually smokes marijuana which helps with his normal symptoms but did not smoking today. Began having his typical abdominal cramping and has had numerous episodes of loose brown stool since. Some mild nausea but no emesis. States he feels better after the diarrhea but is concerned which is why EMS was called. Denies any urinary complaints. Denies chest pain or shortness of breath. No other acute complaints at this time. Presents for further evaluation at this time. States he feels short of breath secondary to the pain as it comes and goes in waves. - Related Data Home Medications Medication Instructions Recorded Confirmed Amitriptyline HCl [Elavil] 100 mg PO HS 04/12/21 09/02/21 Atorvastatin Calcium [Lipitor] 40 mg PO HS 04/12/21 09/02/21 Naproxen 500 mg PO BID-W/MEALS 04/12/21 09/02/21 Sertraline HCl [Zoloft] 150 mg PO HS 04/12/21 09/02/21 traMADol HCl [Ultram] 50 mg PO Q4H PRN 04/12/21 09/02/21 Diltiazem Cd [Cardizem CD] 300 mg PO DAILY 09/02/21 09/02/21 lisinopriL [Zestril] 5 mg PO DAILY 09/02/21 09/02/21 Previous Rx's Medication Instructions Recorded Amoxicillin/Potassium Clav 1 tab PO Q12HR 1 Days #6 tab 09/06/21 [Augmentin 875-125 Tablet] Allergies Allergy/AdvReac Type Severity Reaction Status Date / Time No Known Allergies Allergy Verified 01/23/24 21:03 Review of Systems ROS Statement: Those systems with pertinent positive or pertinent negative responses have been documented in the HPI. Review of Systems: CONST: Denies fever EYES: Denies blurry vision ENT: Denies nasal congestion C/V: Denies Chest pain RESP: Denies shortness of breath GI: Endorses abdominal pain : Denies dysuria SKIN: Denies rash. MSK: Denies joint pain. NEURO: Denies headache ROS Other: All systems not noted in ROS Statement are negative. 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 Past Anesthesia/Blood Transfusion Reactions: No Reported Reaction Past Psychological History: Anxiety, Depression Smoking Status: Former smoker Past Alcohol Use History: None Reported Past Drug Use History: Marijuana - Past Family History Father Additional Family Medical History / Comment(s): of old age. Mother Family Medical History: Myocardial Infarction ([place]) General Exam - General Exam Comments Initial Comments: General: Appears in mild distress secondary to abdominal cramping and pain. HEAD: Normal with no signs of head trauma. EYES: EOMI ENT: Hearing grossly intact, normal oropharynx. RESPIRATORY: Clear breath sounds bilaterally. No wheezes, rales, or rhonchi. C/V: Regular rate and rhythm. S1 and S2 auscultated, no edema, peripheral pulses 2+ and intact throughout ABD: Abdomen is soft, nondistended. Generalized tenderness to palpation. No guarding or rebound tenderness. No peritoneal signs. EXT: Normal range of motion, no obvious deformity SKIN: No rashes or lesions observed on exposed skin. NEURO: Alert and oriented x 4 at this time. Limitations: no limitations Course Vital Signs 06/29/24 06/30/24 06/30/24 23:12 01:18 02:08 Temperature 97.3 F L 97.7 F Pulse Rate 107 H 97 94 Respiratory 22 20 20 Rate Blood Pressure 168/86 161/77 O2 Sat by Pulse 100 100 99 Oximetry 06/30/24 06:00 Temperature 98.3 F Pulse Rate 77 Respiratory 19 Rate Blood Pressure 152/82 O2 Sat by Pulse 100 Oximetry Procedures - Sepsis Sepsis Focused Exam #1 Time Sepsis Criteria Met: 01:00 Sepsis Focused Exam Date: 06/30/24 Sepsis Focused Exam Time: 02:58 Sepsis Focused Exam Complete: Yes Vital Signs & RN Notes Reviewed: Yes Capillary Refill: > 2 Seconds: Fingers, Toes Peripheral Pulses: Normal: Radial (R), Radial (L) Skin Color: Normal for Patient Respiratory Exam: normal lung sounds Cardiovascular Exam: regular rate, normal rhythm Medical Decision Making - Medical Decision Making Was pt. sent in by a medical professional or institution (, PA, OPERATORS SCHOOL MANAGER, urgent care, hospital, or long-term...) When possible be specific @ -No Did you speak to anyone other than the patient for history (EMS, parent, family, police, friend...)? What history was obtained from this source @ -No Did you review nursing and triage notes (agree or disagree)? Why? @ -I reviewed and agree with nursing and triage notes Were old charts reviewed (outside hosp., previous admission, EMS record, old EKG, old radiological studies, urgent care reports/EKG's, long-term records)? Report findings @ -Old charts reviewed which does show he has a history of ischemic colitis with elevated lactic acid. Has never required surgery in the past. Last surgical note was from a Dr. Cuba from August 2021. Differential Diagnosis (chest pain, altered mental status, abdominal pain women, abdominal pain men, vaginal bleeding, weakness, fever, dyspnea, syncope, headache, dizziness, GI bleed, back pain, seizure, CVA, palpatations, mental health, musculoskeletal)? @ -Differential Abdominal Pain Men: Appendicitis, cholecystitis, diverticulosis, ischemic bowel, pancreatitis, hepatitis, UTI, gastroenteritis, AAA, incarcerated hernia, bowel obstruction, constipation, inflammatory bowel, hepatitis, peptic ulcer disease, splenic infarction, perforated viscus, testicular torsion, this is not meant to be an all-inclusive list EKG interpreted by me (3pts min.). @ -As above X-rays interpreted by me (1pt min.). @ -None done CT interpreted by me (1pt min.). @ -CT angiogram of the abdomen pelvis reveals colitis. Radiology's believes it is likely more infectious or inflammatory and less likely ischemic. U/S interpreted by me (1pt. min.). @ -None done What testing was considered but not performed or refused? (CT, X-rays, U/S, labs)? Why? @ -None What meds were considered but not given or refused? Why? @ -None Did you discuss the management of the patient with other professionals (professionals i.e. , PA, OPERATORS SCHO[employer] MANAGER, lab, RT, psych nurse, social welfare research worker, equipment lead, teacher, air antisubmarine officer, immigration case worker)? Give summary @ -Discussed the Case with Dr. Hawthorne of surgery who is in agreement with the plan of IV antibiotics, IV fluid hydration, as well as admission to medicine for monitoring. Discussed the case with the admitting team, REMY Da Silva of [facility] who is covering for Dr. Gallagher who accepted the admission. Was smoking cessation discussed for >3mins.? @ -No Was critical care preformed (if so, how long)? @ -Yes, 38 minutes. Were there social determinants of health that impacted care today? How? (Homelessness, low income, unemployed, alcoholism, drug addiction, transportation, low edu. Level, literacy, decrease access to med. care, snf, rehab)? @ -No Was there de-escalation of care discussed even if they declined (Discuss DNR or withdrawal of care, Hospice)? DNR status @ -No What co-morbidities impacted this encounter? (DM, HTN, Smoking, COPD, CAD, Cancer, CVA, ARF, Chemo, Hep., AIDS, mental health diagnosis, sleep apnea, morbid obesity)? @ -History of ischemic colitis Was patient admitted / discharged? Hospital course, mention meds given and route, prescriptions, significant lab abnormalities, going to OR and other pertinent info. @ -Patient presents with abdominal cramping, diarrhea onset today. States he believes it is his ischemic colitis acting up. Will obtain abdominal workup, screen EKG, as well as a CT angiogram of the abdomen pelvis. He was in agreement this plan. Vital signs are currently within acceptable limits. Patient given IV analgesia medications, Zofran, Protonix as well as IV fluids. Laboratory studies returned remarkable for a leukocytosis of 26 with a lactic acidosis of 6.1. Negative C. difficile. Negative viral swabs. I have high concern for ischemic colitis at this time. Patient sent for CT angiogram. However when lactic acid and leukocytosis returned, patient does meet sepsis criteria. This was at 0100. Patient empirically started on IV Zosyn as well as given a second bolus of IV fluids, switched to lactated Ringer's and started on maintenance fluids 100 cc an hour. Blood culture obtained and sent. Repeat lactic acid will be obtained as well. Pain at this time is under control. Has had numerous nonbloody bowel movements in our department states he feels improved. Repeat abdominal exam shows that it remains soft. Now more focal tenderness to the left lower quadrant CT angiogram of the abdomen pelvis reveals colitis. Radiology's believes it is likely more infectious or inflammatory and less likely ischemic. Discussed the Case with Dr. Hawthorne of surgery who is in agreement with the plan of IV antibiotics, IV fluid hydration, as well as admission to medicine for monitoring. Discussed the case with the admitting team, REMY Da Silva of [facility] who is covering for Dr. Gallagher who accepted the admission. Undiagnosed new problem with uncertain prognosis? @ -No Drug Therapy requiring intensive monitoring for toxicity (Heparin, Nitro, Insulin, Cardizem)? @ -No Were any procedures done? @ -No Diagnosis/symptom? @ -Colitis, sepsis Acute, or Chronic, or Acute on Chronic? @ -Acute Uncomplicated (without systemic symptoms) or Complicated (systemic symptoms)? @ -Complicated Side effects of treatment? @ -None Exacerbation, Progression, or Severe Exacerbation] @ -No Poses a threat to life or bodily function? @ -Yes - Lab Data Result diagrams: 06/30/24 00:07 06/30/24 00:07 Lab Results 06/30/24 06/30/24 06/30/24 Range/Units 00:07 00:07 00:07 WBC 26.2 H (3.8-10.6) k/uL RBC 5.00 (4.30-5.90) m/uL Hgb 15.7 (13.0-17.5) gm/dL Hct 47.6 (39.0-53.0) % MCV 95.2 (80.0-100.0) fL MCH 31.5 (25.0-35.0) pg MCHC 33.1 (31.0-37.0) g/dL RDW 13.7 (11.5-15.5) % Plt Count 489 H (150-450) k/uL MPV 8.2 Neutrophils % 92 % Lymphocytes % 3 % Monocytes % 4 % Eosinophils % 0 % Basophils % 0 % Neutrophils # 24.0 H (1.3-7.7) k/uL Lymphocytes # 0.8 L (1.0-4.8) k/uL Monocytes # 1.2 H (0-1.0) k/uL Eosinophils # 0.1 (0-0.7) k/uL Basophils # 0.0 (0-0.2) k/uL PT (10.0-12.5) sec INR (<1.2) APTT (22.0-30.0) sec Sodium 138 (137-145) mmol/L Potassium 4.1 (3.5-5.1) mmol/L Chloride 104 (98-107) mmol/L Carbon Dioxide 22 (22-30) mmol/L Anion Gap 12 mmol/L BUN 15 (9-20) mg/dL Creatinine 0.95 (0.66-1.25) mg/dL Est GFR (CKD-EPI)AfAm 89 (>60 ml/min/1.73 sqM) Est GFR (CKD-EPI)NonAf 77 (>60 ml/min/1.73 sqM) Glucose 158 H (74-99) mg/dL Lactic Ac Sepsis Rflx Plasma Lactic Acid Esau (0.7-2.0) mmol/L Calcium 10.4 H (8.4-10.2) mg/dL Total Bilirubin 0.5 (0.2-1.3) mg/dL AST 26 (17-59) U/L ALT 26 (4-49) U/L Alkaline Phosphatase 99 (38-126) U/L Total Protein 7.7 (6.3-8.2) g/dL Albumin 4.9 (3.5-5.0) g/dL Amylase 95 (30-110) U/L Lipase 104 (23-300) U/L Urine Color Colorless Urine Appearance Clear (Clear) Urine pH 5.0 (5.0-8.0) Ur Specific [place] 1.035 (1.001-1.035) Urine Protein Negative (Negative) Urine Glucose (UA) Negative (Negative) Urine Ketones Negative (Negative) Urine Blood Negative (Negative) Urine Nitrite Negative (Negative) Urine Bilirubin Negative (Negative) Urine Urobilinogen <2.0 (<2.0) mg/dL Ur Leukocyte Esterase Negative (Negative) C. difficile (EIA) Intrp (Negative) Influenza Type A (PCR) (Not Detectd) Influenza Type B (PCR) (Not Detectd) RSV (PCR) (Not Detectd) SARS-CoV-2 (PCR) (Not Detectd) 06/30/24 06/30/24 06/30/24 Range/Units 00:07 00:07 00:07 WBC (3.8-10.6) k/uL RBC (4.30-5.90) m/uL Hgb (13.0-17.5) gm/dL Hct (39.0-53.0) % MCV (80.0-100.0) fL MCH (25.0-35.0) pg MCHC (31.0-37.0) g/dL RDW (11.5-15.5) % Plt Count (150-450) k/uL MPV Neutrophils % % Lymphocytes % % Monocytes % % Eosinophils % % Basophils % % Neutrophils # (1.3-7.7) k/uL Lymphocytes # (1.0-4.8) k/uL Monocytes # (0-1.0) k/uL Eosinophils # (0-0.7) k/uL Basophils # (0-0.2) k/uL PT (10.0-12.5) sec INR (<1.2) APTT (22.0-30.0) sec Sodium (137-145) mmol/L Potassium (3.5-5.1) mmol/L Chloride (98-107) mmol/L Carbon Dioxide (22-30) mmol/L Anion Gap mmol/L BUN (9-20) mg/dL Creatinine (0.66-1.25) mg/dL Est GFR (CKD-EPI)AfAm (>60 ml/min/1.73 sqM) Est GFR (CKD-EPI)NonAf (>60 ml/min/1.73 sqM) Glucose (74-99) mg/dL Lactic Ac Sepsis Rflx Plasma Lactic Acid Esau 6.1 H* (0.7-2.0) mmol/L Calcium (8.4-10.2) mg/dL Total Bilirubin (0.2-1.3) mg/dL AST (17-59) U/L ALT (4-49) U/L Alkaline Phosphatase (38-126) U/L Total Protein (6.3-8.2) g/dL Albumin (3.5-5.0) g/dL Amylase (30-110) U/L Lipase (23-300) U/L Urine Color Urine Appearance (Clear) Urine pH (5.0-8.0) Ur Specific [place] (1.001-1.035) Urine Protein (Negative) Urine Glucose (UA) (Negative) Urine Ketones (Negative) Urine Blood (Negative) Urine Nitrite (Negative) Urine Bilirubin (Negative) Urine Urobilinogen (<2.0) mg/dL Ur Leukocyte Esterase (Negative) C. difficile (EIA) Intrp Negative (Negative) Influenza Type A (PCR) Not Detected (Not Detectd) Influenza Type B (PCR) Not Detected (Not Detectd) RSV (PCR) Not Detected (Not Detectd) SARS-CoV-2 (PCR) Not Detected (Not Detectd) 06/30/24 06/30/24 06/30/24 Range/Units 02:00 02:00 02:36 WBC (3.8-10.6) k/uL RBC (4.30-5.90) m/uL Hgb (13.0-17.5) gm/dL Hct (39.0-53.0) % MCV (80.0-100.0) fL MCH (25.0-35.0) pg MCHC (31.0-37.0) g/dL RDW (11.5-15.5) % Plt Count (150-450) k/uL MPV Neutrophils % % Lymphocytes % % Monocytes % % Eosinophils % % Basophils % % Neutrophils # (1.3-7.7) k/uL Lymphocytes # (1.0-4.8) k/uL Monocytes # (0-1.0) k/uL Eosinophils # (0-0.7) k/uL Basophils # (0-0.2) k/uL PT 11.1 (10.0-12.5) sec INR 1.0 (<1.2) APTT 22.0 (22.0-30.0) sec Sodium (137-145) mmol/L Potassium (3.5-5.1) mmol/L Chloride (98-107) mmol/L Carbon Dioxide (22-30) mmol/L Anion Gap mmol/L BUN (9-20) mg/dL Creatinine (0.66-1.25) mg/dL Est GFR (CKD-EPI)AfAm (>60 ml/min/1.73 sqM) Est GFR (CKD-EPI)NonAf (>60 ml/min/1.73 sqM) Glucose (74-99) mg/dL Lactic Ac Sepsis Rflx Y Plasma Lactic Acid Esau 3.8 H* (0.7-2.0) mmol/L Calcium (8.4-10.2) mg/dL Total Bilirubin (0.2-1.3) mg/dL AST (17-59) U/L ALT (4-49) U/L Alkaline Phosphatase (38-126) U/L Total Protein (6.3-8.2) g/dL Albumin (3.5-5.0) g/dL Amylase (30-110) U/L Lipase (23-300) U/L Urine Color Urine Appearance (Clear) Urine pH (5.0-8.0) Ur Specific [place] (1.001-1.035) Urine Protein (Negative) Urine Glucose (UA) (Negative) Urine Ketones (Negative) Urine Blood (Negative) Urine Nitrite (Negative) Urine Bilirubin (Negative) Urine Urobilinogen (<2.0) mg/dL Ur Leukocyte Esterase (Negative) C. difficile (EIA) Intrp (Negative) Influenza Type A (PCR) (Not Detectd) Influenza Type B (PCR) (Not Detectd) RSV (PCR) (Not Detectd) SARS-CoV-2 (PCR) (Not Detectd) - EKG Data -: EKG Interpreted by Me EKG Comments: 12-lead Electrocardiogram Interpretation Note EKG was reviewed and interpreted by myself. 12-lead ECG performed at 0037 is interpreted by me as revealing normal sinus rhythm at a rate of 97 beats per minute. [place] is normal. SD interval is 169 ms, QRS duration is 85 ms, QTc is [address] segment abnormalities including mild depressions which are seen on prior EKGs from March 2021.. R wave progression across the precordium was satisfactory. Critical Care Time Critical Care Time: Yes Total Critical Care Time: 38 Disposition Clinical Impression: Colitis, Sepsis Disposition: ADMITTED IP TO THIS HOSP Condition: Serious Time of Disposition: 03:29
[2024-06-30 01:10] LABS: ALT 26 U/L (4-49)
[2024-06-30] MEDS: LACTATED RINGERS 1,000 ML BAG IV STA (01:56)
[2024-06-30] MEDS: PIPERACILLIN-TAZOBACTAM 3.375 GM in SODIUM CHLORIDE 0.9% 100 ML IVPB STA (01:56)
[2024-06-30] MEDS: LACTATED RINGERS 1,000 ML IV ONE ×2 (01:56→06:45)
--- NOTE | 2024-06-30 02:13 | CT ---
EXAMINATION TYPE: CT angio abdomen pelvis DATE OF EXAM: 06/30/2024 COMPARISON: CT abdomen and pelvis September 02, 2021 HISTORY: Patient denies smoking marijuana today. Patient states "He lives home with his , not his sister: He got dizzy and felt like he was going to throw up; Usually he smokes marijuana for his sto mach cramps and this helps him to throw up and then he feels better after." Patient states various ot her complaints that are difficult to follow. CT DLP: 960.9 mGycm, Automated Exposure Control for Dose Reduction was Utilized. CONTRAST: CTA scan of the abdomen and pelvis is performed without oral and without and with IV Contrast, patien t injected with 100ml mL of Isovue 370. FINDINGS: VASCULAR: There are 2 right renal and 2 left renal arteries which is normal variant. Moderate periphe ral plaque in the abdominal aorta extends into iliac branch vessels. No significant stenosis includin g visualized bilateral femoral arteries. Patent celiac artery and SMA without significant stenosis. P atent GOKUL. No AAA. LUNG BASES: No significant abnormality is appreciated. LIVER/GB: Liver is heterogeneously hypodense relative to spleen consistent with diffuse fatty infiltr ation or hepatocellular disease. PANCREAS: No significant abnormality is seen. SPLEEN: No significant abnormality is seen. ADRENALS: No significant abnormality is seen. KIDNEYS: There are simple appearing thin-walled cysts upper pole level of both kidneys redemonstrated . BOWEL: No abnormal small or large bowel dilatation. Mild/moderate wall thickening in the transverse colon as well as moderate wall thickening in the left and sigmoid colon. Sigmoid colonic diverticulo sis is present. Appendix within normal limits from cecum. PROSTATE/SEMINAL VESICLES: No gross abnormality seen. LYMPH NODES: No greater than 1cm abdominal or pelvic lymph nodes are appreciated. OSSEOUS STRUCTURES: Severe disc space narrowing with endplate sclerosis and vacuum disc phenomenon at the lumbosacral junction. OTHER: No significant additional abnormality is seen. IMPRESSION: No bowel obstruction. There are areas of abnormal colonic bowel wall thickening suspiciou s for acute colitis. Differential includes infectious and/or inflammatory etiologies. Ischemic etiolo gy thought less likely as there is no significant arterial vascular stenosis identified. [facility], , 06/30/2024 2:10 AM
[2024-06-30 02:45] LABS: Prothrombin Time 11.1 sec (10.0-12.5)
[2024-06-30 03:29] LABS: Appearance,Urine Clear (Clear); Bilirubin,Urine Negative (Negative); Blood,Urine Negative (Negative); Color,Urine Colorless; Glucose,Urine (UA) Negative (Negative); Ketones,Urine Negative (Negative); Leukocyte Esterase,Urine Negative (Negative); Nitrite,Urine Negative (Negative); Protein,Urine Negative (Negative); Specific Gravity,Urine 1.035 (1.001-1.035); Urobilinogen,Urine <2.0 mg/dL (<2.0)
[2024-06-30] MEDS ORDERED: ONDANSETRON 4 MG/2 ML VIAL IVP PRN (03:29)
[2024-06-30] MEDS ORDERED: NALOXONE 0.4 MG/ML 1 ML VIAL IV PRN (03:29)
[2024-06-30] MEDS ORDERED: PIPERACILLIN-TAZOBACTAM 3.375 GM in SODIUM CHLORIDE 0.9% 100 ML IVPB SCH (08:00)
[2024-06-30] MEDS: PANTOPRAZOLE 40 MG/10 ML VIAL IV SCH (08:06)
[2024-06-30] MEDS: metroNIDAZOLE-NS PMX 500 MG in SALINE 1 100ML.BAG IVPB SCH (08:06)
[2024-06-30 08:38] LABS: Basophils % (A) 0 %; Eosinophils % (A) 0 %; HCT 40.8 % (39.0-53.0); HGB 13.2 gm/dL (13.0-17.5); Lymphocytes # (A) 0.6 k/uL (1.0-4.8); Lymphocytes % (A) 3 %; MCH 31.1 pg (25.0-35.0); MCHC 32.3 g/dL (31.0-37.0); MCV 96.3 fL (80.0-100.0); Mean Platelet Volume 7.3; Monocytes # (A) 0.5 k/uL (0-1.0); Monocytes % (A) 3 %; Neutrophils # (A) 15.9 k/uL (1.3-7.7); Neutrophils % (A) 93 %; Platelet Count 362 k/uL (150-450); RBC 4.23 m/uL (4.30-5.90); RDW 13.9 % (11.5-15.5); WBC 17.1 k/uL (3.8-10.6)
[2024-06-30 08:43] LABS: AST 22 U/L (17-59); African American GFR (CKD) 78 (>60 ml/min/1.73 sqM); Albumin 3.8 g/dL (3.5-5.0); Alkaline Phosphatase 82 U/L (38-126); Anion Gap 11 mmol/L; Bilirubin, Delta 0.1 mg/dL (0.0-0.2); Bilirubin,Unconjugated 0.2 mg/dL (0.0-1.1); Blood Urea Nitrogen 15 mg/dL (9-20); Calcium 9.5 mg/dL (8.4-10.2); Carbon Dioxide 18 mmol/L (22-30); Chloride 109 mmol/L (98-107); Glucose 134 mg/dL (74-99); Non-African American GFR(CKD) 68 (>60 ml/min/1.73 sqM); Potassium 4.7 mmol/L (3.5-5.1); Sodium 138 mmol/L (137-145); Total Bilirubin 0.3 mg/dL (0.2-1.3); Total Protein 5.9 g/dL (6.3-8.2)
[2024-06-30 08:52] LABS: ALT 24 U/L (4-49)
[2024-06-30] MEDS: SODIUM CHLORIDE 0.9% 500 ML 500 ML IV ONE (10:07)
[2024-06-30] MEDS: traMADol 50 MG TAB PO SCH (10:38)
[2024-06-30] MEDS: MORPHINE SULFATE 4 MG/ML SYRINGE IV PRN (13:00)
[2024-06-30] MEDS: SODIUM CHLORIDE 0.9% 1,000 ML IV SCH (13:00)
[2024-06-30] MEDS: DILTIAZEM CD 240 MG CAP.ER.24H PO SCH (15:18)
[2024-06-30] MEDS: SERTRALINE 100 MG TAB PO SCH (15:18)
--- NOTE | 2024-06-30 17:29 | P.HPIM ---
History of Present Illness H&P Date: 06/30/24 History of present illness; Patient is 79-year-old male with hypertension, hyperlipidemia, history of ischemic colitis who presents with weakness and constipation. Patient states before arrival his last bowel movement was 2 days ago. He endorses black stool and incomplete evacuation. Yesterday while attempting bowel movement patient was seated for 15 to 20 minutes and straining, he began to feel weak to continue and proceeded to rest on the bathroom floor and asked his to call EMS. He has had multiple similar episodes of needing to rest while attempting BM. He states a long history of altered bowel function with constipation predominant. While in ER patient has had multiple loose, nonbloody stools. Currently patient endorses lower abdominal pain characterized as tightness with nausea but no vomiting. Associated with this pain he feels short of breath. He does state a history of multiple colonoscopies with polyps and has been recommended to discontinue colonoscopies due to age. While in ER he was started on Zosyn and metronidazole and given Rocephin. He was also given 1.5 L of NS and later given 2 L of NS and was continued on LR at 130 mL/h. He has no other symptoms at this time. ER initial labs WBC 26.2, platelets 489, glucose 158, lactic acid 6.1 UA negative, respiratory viral panel negative. EKG done in the ER independently interpreted showed heart rate of 97, no ST segment elevation or depression seen, no T-wave inversions seen. CT angiogram of abdomen and pelvis reveals colitis, likely infectious or inflammatory and less likely to be ischemic. Spoke with the ER physician, patient admission was accepted by internal medicine service for treatment. REVIEW OF SYSTEMS: Pertinent positives and negatives noted in HPI. PHYSICAL EXAMINATION: Vitals reviewed GENERAL: No acute distress. Well developed, well nourished. HEENT: Pupils are round and equally reacting to light. EOMI. No scleral icterus. Normocephalic, atraumatic. CARDIOVASCULAR: S1 and S2 present. No murmurs, rubs, or gallops. PULMONARY: Chest is clear to auscultation, no wheezing, rhonchi, or crackles. ABDOMEN: Soft, periumbilical tenderness. Nondistended, normoactive bowel honey nds. No palpable organomegaly. MUSCULOSKELETAL: No apparent joint swelling and deformities. EXTREMITIES: No apparent cyanosis, clubbing, or pedal edema. NEUROLOGICAL: The patient is alert and oriented x3, Gross neurological examination did not reveal any focal deficits. SKIN: No apparent rashes. Today's labs WBC 17.1, bicarb 18, lactic acid 3.8 => 5.0 => 4.3 => 2.8. Assessment and plan Patient is 79-year-old male with hypertension, hyperlipidemia, history of ischemic colitis who presents with weakness and constipation. #Colitis, inflammatory versus infectious #Lactic acidosis #Leukocytosis CT abdomen pelvis with evidence of colitis Initial WBC 26.2, lactic acid 6.1 Given fluid resuscitation with NS and LR Given Zosyn 3.37 g once Begin metronidazole 500 mg IVPB every 8 hours Begin Rocephin 1 g IVPB every 24 hours Begin NS at 100 mL/h Blood and stool culture pending C. difficile pending Surgery consulted ID consulted # Generalized weakness PT OT consulted Chronic Medical Conditions # Essential hypertension - Resume home medication #Hyperlidemia - Resume home Atorvastatin #GERD - Resume home Pantoprazole #Anxiety/Depression - Resume home Sertraline F: IV Normal saline 100 mL/hr E: Replete as needed N: N.p.o. DVT ppx: Subq Lovenox 40 meq daily Code status: Full code Anticipated discharge place: Pending clinical course Anticipated discharge time: Pending clinical course Dictation was produced using [employer] dictation software. Please excuse any grammatical, word or spelling errors. Attestation I have seen and examined this patient with my resident , discussed the same with the resident/MAR, and agree with the dictator's assessment and plan as written Dr. 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 Past Anesthesia/Blood Transfusion Reactions: No Reported Reaction Past Psychological History: Anxiety, Depression Smoking Status: Former smoker Past Alcohol Use History: None Reported Past Drug Use History: Marijuana - Past Family History Father Additional Family Medical History / Comment(s): of old age. Mother Family Medical History: Myocardial Infarction ([place]) Medications and Allergies Home Medications Medication Instructions Recorded Confirmed Type Atorvastatin Calcium [Lipitor] 40 mg PO HS 04/12/21 06/30/24 History Sertraline HCl [Zoloft] 100 mg PO DAILY 04/12/21 06/30/24 History traMADol HCl [Ultram] 50 mg PO 5XD PRN 04/12/21 06/30/24 History Amitriptyline HCl [Elavil] 150 mg PO HS 06/30/24 06/30/24 History Diltiazem Cd [Cardizem CD] 240 mg PO DAILY 06/30/24 06/30/24 History Sertraline [Zoloft] 50 mg PO HS 06/30/24 06/30/24 History lisinopriL [Zestril] 10 mg PO BID 06/30/24 06/30/24 History Allergies Allergy/AdvReac Type Severity Reaction Status Date / Time No Known Allergies Allergy Verified 06/30/24 09:42 Physical Exam Vitals: Vital Signs Temp Pulse Resp BP Pulse Ox 06/30/24 15:12 98.9 F 85 19 113/73 100 06/30/24 12:50 98.9 F 89 19 156/73 97 06/30/24 11:39 99.4 F 90 14 143/70 100 06/30/24 10:11 100.1 F H 92 22 143/83 100 06/30/24 08:14 98.7 F 102 H 17 160/71 93 L 06/30/24 06:48 86 20 155/79 100 06/30/24 06:00 98.3 F 77 19 152/82 100 06/30/24 02:08 94 20 161/77 99 06/30/24 01:18 97.7 F 97 20 168/86 100 06/29/24 23:12 97.3 F L 107 H 22 100 Intake and Output 06/30/24 06/30/24 06/30/24 06:59 14:59 22:59 Other: # Bowel Movements 2 1 Weight 70.307 kg Results CBC & Chem 7: 07/01/24 06:00 07/01/24 06:00 Labs: Abnormal Lab Results - Last 24 Hours (Table) 06/30/24 06/30/24 06/30/24 Range/Units 00:07 00:07 00:07 WBC 26.2 H (3.8-10.6) k/uL RBC (4.30-5.90) m/uL Plt Count 489 H (150-450) k/uL Neutrophils # 24.0 H (1.3-7.7) k/uL Lymphocytes # 0.8 L (1.0-4.8) k/uL Monocytes # 1.2 H (0-1.0) k/uL Chloride (98-107) mmol/L Carbon Dioxide (22-30) mmol/L Glucose 158 H (74-99) mg/dL Plasma Lactic Acid Esau 6.1 H* (0.7-2.0) mmol/L Calcium 10.4 H (8.4-10.2) mg/dL Total Protein (6.3-8.2) g/dL 06/30/24 06/30/24 06/30/24 Range/Units 02:00 05:37 05:37 WBC 17.1 H (3.8-10.6) k/uL RBC 4.23 L (4.30-5.90) m/uL Plt Count (150-450) k/uL Neutrophils # 15.9 H (1.3-7.7) k/uL Lymphocytes # 0.6 L (1.0-4.8) k/uL Monocytes # (0-1.0) k/uL Chloride (98-107) mmol/L Carbon Dioxide (22-30) mmol/L Glucose (74-99) mg/dL Plasma Lactic Acid Esau 3.8 H* 5.0 H* (0.7-2.0) mmol/L Calcium (8.4-10.2) mg/dL Total Protein (6.3-8.2) g/dL 06/30/24 06/30/24 06/30/24 Range/Units 05:37 09:08 12:37 WBC (3.8-10.6) k/uL RBC (4.30-5.90) m/uL Plt Count (150-450) k/uL Neutrophils # (1.3-7.7) k/uL Lymphocytes # (1.0-4.8) k/uL Monocytes # (0-1.0) k/uL Chloride 109 H (98-107) mmol/L Carbon Dioxide 18 L (22-30) mmol/L Glucose 134 H (74-99) mg/dL Plasma Lactic Acid Esau 4.3 H* 2.8 H* (0.7-2.0) mmol/L Calcium (8.4-10.2) mg/dL Total Protein 5.9 L (6.3-8.2) g/dL
[2024-06-30] MEDS: SERTRALINE 50 MG TAB PO SCH (21:21)
[2024-06-30] MEDS: ATORVASTATIN 40 MG TAB PO SCH (21:21)
[2024-06-30] MEDS: AMITRIPTYLINE HCL 50 MG TAB PO SCH (21:22)
[2024-06-30] MEDS: lisinopriL 10 MG TAB PO SCH (21:23)
--- NOTE | 2024-06-30 23:15 | P.GSCN ---
History of Present Illness History of present illness: Patient is 79-year-old male with hypertension, hyperlipidemia, history of ischemic colitis who presents with weakness and constipation. Patient states before arrival his last bowel movement was 2 days ago. He endorses black stool and incomplete evacuation. Yesterday while attempting bowel movement patient was seated for 15 to 20 minutes and straining, he began to feel weak to continue and proceeded to rest on the bathroom floor and asked his to call EMS. He has had multiple similar episodes of needing to rest while attempting BM. He states a long history of altered bowel function with constipation predominant. While in ER patient has had multiple loose, nonbloody stools. Currently patient endorses lower abdominal pain characterized as tightness with nausea but no vomi ting. Associated with this pain he feels short of breath. He does state a history of multiple colonoscopies with polyps and has been recommended to discontinue colonoscopies due to age. While in ER he was started on Zosyn and metronidazole and given Rocephin. He currently feels better and states abdominal pain has improved. 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 Past Anesthesia/Blood Transfusion Reactions: No Reported Reaction Additional Past Anesthesia/Blood Transfusion Reaction / Comm: Pt unsure if he's ever had a blood transfusion. Past Psychological History: Anxiety, Depression Smoking Status: Former smoker Past Alcohol Use History: None Reported Past Drug Use History: Marijuana Additional Drug Use History / Comment(s): Pt reports smoking a joint 2-3 times a day. - Past Family History Father Additional Family Medical History / Comment(s): of old age. Mother Family Medical History: Myocardial Infarction ([place]) Medications and Allergies Home Medications Medication Instructions Recorded Confirmed Type Atorvastatin Calcium [Lipitor] 40 mg PO HS 04/12/21 06/30/24 History Sertraline HCl [Zoloft] 100 mg PO DAILY 04/12/21 06/30/24 History traMADol HCl [Ultram] 50 mg PO 5XD PRN 04/12/21 06/30/24 History Amitriptyline HCl [Elavil] 150 mg PO HS 06/30/24 06/30/24 History Diltiazem Cd [Cardizem CD] 240 mg PO DAILY 06/30/24 06/30/24 History Sertraline [Zoloft] 50 mg PO HS 06/30/24 06/30/24 History lisinopriL [Zestril] 10 mg PO BID 06/30/24 06/30/24 History Allergies Allergy/AdvReac Type Severity Reaction Status Date / Time No Known Allergies Allergy Verified 06/30/24 09:42 Surgical - Exam Osteopathic Statement: *. No significant issues noted on an osteopathic structural exam other than those noted in the History and Physical/Consult. Vital Signs Temp Pulse Resp Pulse Ox 97.3 F L 107 H 22 100 06/29/24 23:12 06/29/24 23:12 06/29/24 23:12 06/29/24 23:12 gen: nad cv: rrr pul: non labored breathing abd: soft, non distended, tender to palpation in the left lower quadrant, no gua rding, not peritoneal Results - Labs 06/30/24 05:37 06/30/24 05:37 Abnormal Lab Results - Last 24 Hours (Table) 06/30/24 06/30/24 06/30/24 Range/Units 00:07 00:07 00:07 WBC 26.2 H (3.8-10.6) k/uL RBC (4.30-5.90) m/uL Plt Count 489 H (150-450) k/uL Neutrophils # 24.0 H (1.3-7.7) k/uL Lymphocytes # 0.8 L (1.0-4.8) k/uL Monocytes # 1.2 H (0-1.0) k/uL Chloride (98-107) mmol/L Carbon Dioxide (22-30) mmol/L Glucose 158 H (74-99) mg/dL Plasma Lactic Acid Esau 6.1 H* (0.7-2.0) mmol/L Calcium 10.4 H (8.4-10.2) mg/dL Total Protein (6.3-8.2) g/dL 06/30/24 06/30/2406/30/24 Range/Units 02:00 05:37 05:37 WBC 17.1 H (3.8-10.6) k/uL RBC 4.23 L (4.30-5.90) m/uL Plt Count (150-450) k/uL Neutrophils # 15.9 H (1.3-7.7) k/uL Lymphocytes # 0.6 L (1.0-4.8) k/uL Monocytes # (0-1.0) k/uL Chloride (98-107) mmol/L Carbon Dioxide (22-30) mmol/L Glucose (74-99) mg/dL Plasma Lactic Acid Esau 3.8 H* 5.0 H* (0.7-2.0) mmol/L Calcium (8.4-10.2) mg/dL Total Protein (6.3-8.2) g/dL 06/30/24 06/30/24 06/30/24 Range/Units 05:37 09:08 12:37 WBC (3.8-10.6) k/uL RBC (4.30-5.90) m/uL Plt Count (150-450) k/uL Neutrophils # (1.3-7.7) k/uL Lymphocytes # (1.0-4.8) k/uL Monocytes # (0-1.0) k/uL Chloride 109 H (98-107) mmol/L Carbon Dioxide 18 L (22-30) mmol/L Glucose 134 H (74-99) mg/dL Plasma Lactic Acid Esau 4.3 H* 2.8 H* (0.7-2.0) mmol/L Calcium (8.4-10.2) mg/dL Total Protein 5.9 L (6.3-8.2) g/dL 06/30/24 Range/Units 16:30 WBC (3.8-10.6) k/uL RBC (4.30-5.90) m/uL Plt Count (150-450) k/uL Neutrophils # (1.3-7.7) k/uL Lymphocytes # (1.0-4.8) k/uL Monocytes # (0-1.0) k/uL Chloride (98-107) mmol/L Carbon Dioxide (22-30) mmol/L Glucose (74-99) mg/dL Plasma Lactic Acid Esau 2.4 H* (0.7-2.0) mmol/L Calcium (8.4-10.2) mg/dL Total Protein (6.3-8.2) g/dL Diabetes panel 06/30/24 06/30/24 Range/Units 00:07 05:37 Sodium 138 138 (137-145) mmol/L Potassium 4.1 4.7 (3.5-5.1) mmol/L Chloride 104 109 H (98-107) mmol/L Carbon Dioxide 22 18 L (22-30) mmol/L BUN 15 15 (9-20) mg/dL Creatinine 0.95 1.06 (0.66-1.25) mg/dL Glucose 158 H 134 H (74-99) mg/dL Calcium 10.4 H 9.5 (8.4-10.2) mg/dL AST 26 22 (17-59) U/L ALT 26 24 (4-49) U/L Alkaline Phosphatase 99 82 (38-126) U/L Total Protein 7.7 5.9 L (6.3-8.2) g/dL Albumin 4.9 3.8 (3.5-5.0) g/dL Calcium panel 06/30/24 06/30/24 Range/Units 00:07 05:37 Calcium 10.4 H 9.5 (8.4-10.2) mg/dL Albumin 4.9 3.8 (3.5-5.0) g/dL Pituitary panel 06/30/24 06/30/24 Range/Units 00:07 05:37 Sodium 138 138 (137-145) mmol/L Potassium 4.1 4.7 (3.5-5.1) mmol/L Chloride 104 109 H (98-107) mmol/L Carbon Dioxide 22 18 L (22-30) mmol/L BUN 15 15 (9-20) mg/dL Creatinine 0.95 1.06 (0.66-1.25) mg/dL Glucose 158 H 134 H (74-99) mg/dL Calcium 10.4 H 9.5 (8.4-10.2) mg/dL Adrenal panel 06/30/24 06/30/24 Range/Units 00:07 05:37 Sodium 138 138 (137-145) mmol/L Potassium 4.1 4.7 (3.5-5.1) mmol/L Chloride 104 109 H (98-107) mmol/L Carbon Dioxide 22 18 L (22-30) mmol/L BUN 15 15 (9-20) mg/dL Creatinine 0.95 1.06 (0.66-1.25) mg/dL Glucose 158 H 134 H (74-99) mg/dL Calcium 10.4 H 9.5 (8.4-10.2) mg/dL Total Bilirubin 0.5 0.3 (0.2-1.3) mg/dL AST 26 22 (17-59) U/L ALT 26 24 (4-49) U/L Alkaline Phosphatase 99 82 (38-126) U/L Total Protein 7.7 5.9 L (6.3-8.2) g/dL Albumin 4.9 3.8 (3.5-5.0) g/dL Assessment and Plan Assessment: 79 yo male w/ non specific colitis physical exam does not reveal a surgical abdomen, ctap reviewed demonstrates non specific colitis, celiac, sma, and sepideh are all patent. aggressive iv hydration pain control no surgical intervention at this time bowel rest Time with Patient: Greater than 30
[2024-07-01 07:00] LABS: Basophils % (A) 0 %; Eosinophils # (A) 0.1 k/uL (0-0.7); Eosinophils % (A) 1 %; HCT 32.5 % (39.0-53.0); HGB 10.9 gm/dL (13.0-17.5); Lymphocytes # (A) 1.1 k/uL (1.0-4.8); Lymphocytes % (A) 16 %; MCH 31.7 pg (25.0-35.0); MCHC 33.5 g/dL (31.0-37.0); MCV 94.7 fL (80.0-100.0); Mean Platelet Volume 7.1; Monocytes # (A) 0.5 k/uL (0-1.0); Monocytes % (A) 7 %; Neutrophils # (A) 5.3 k/uL (1.3-7.7); Neutrophils % (A) 74 %; Platelet Count 259 k/uL (150-450); RBC 3.44 m/uL (4.30-5.90); RDW 13.8 % (11.5-15.5); WBC 7.1 k/uL (3.8-10.6)
[2024-07-01 07:08] LABS: ALT 16 U/L (4-49); AST 26 U/L (17-59); African American GFR (CKD) >90 (>60 ml/min/1.73 sqM); Albumin 3.2 g/dL (3.5-5.0); Alkaline Phosphatase 50 U/L (38-126); Anion Gap 5 mmol/L; Bilirubin,Unconjugated 0.3 mg/dL (0.0-1.1); Blood Urea Nitrogen 10 mg/dL (9-20); Calcium 8.3 mg/dL (8.4-10.2); Carbon Dioxide 24 mmol/L (22-30); Chloride 112 mmol/L (98-107); Glucose 92 mg/dL (74-99); Non-African American GFR(CKD) 84 (>60 ml/min/1.73 sqM); Sodium 141 mmol/L (137-145); Total Bilirubin 0.3 mg/dL (0.2-1.3); Total Protein 5.3 g/dL (6.3-8.2)
[2024-07-01] MEDS: ENOXAPARIN 40 MG/0.4 ML SYRINGE SQ SCH (08:20)
--- NOTE | 2024-07-01 09:07 | P.CONS ---
History of Present Illness - Reason for Consult Consult date: 06/30/24 Colitis, sepsis Requesting physician: Carlitos Calderón - Chief Complaint Abdominal pain and diarrhea x 1 day - History of Present Illness Patient is a 79-year-old male with a past medical history significant for hypertension hyperlipidemia reflux CVA TIA rheumatoid arthritis presenting to the hospital for evaluation of abdominal pain and diarrhea patient mention he seemed to have a problem with constipation for which he has been taking some laxative and subsequently started having abdominal pain and did have numerous episodes of loose brown bowel movements denies having any blood in the stool patient did have some nausea but no vomiting patient denies high-grade fever or any chills or any recent antibiotic exposure on presentation to the hospital the patient was afebrile he did have low-grade fever 100.1 F subsequently patient was not tachycardic hypotensive or hypoxic no need for supplemental oxygen patient did have elevated white count 17.1 with a left shift creatinine 1.06 electrolytes normal liver enzymes normal urine has been negative influenza RSV COVID testing negative patient did have abdominal pelvis CTA no bowel obstruction areas of abnormal colonic bowel wall thickening suspicious for acute colitis with a question of infectious versus inflammatory less likely infectious patient was started on Rocephin and Flagyl infectious disease was consulted for further management of antibiotic therapy Review of Systems Positive point and negatives has been mentioned in the HPI, complete review of systems was performed and all other systems are negative Past Medical History Past Medical History: CVA/TIA, GERD/Reflux, Hyperlipidemia, Hypertension, Memory Impairment, Rheumatoid Arthritis (RA) Additional Past Medical History / Comment(s): scarlatina as a child, TIA, vertigo, colitis History of Any Multi-Drug Resistant Organisms: None Reported Past Surgical History: Adenoidectomy, Tonsillectomy Additional Past Surgical History / Comment(s): laminectomy L5 S2, colonoscopy x 3. Past Anesthesia/Blood Transfusion Reactions: No Reported Reaction Past Psychological History: Anxiety, Depression Smoking Status: Former smoker Past Alcohol Use History: None Reported Past Drug Use History: Marijuana - Past Family History Father Additional Family Medical History / Comment(s): of old age. Mother Family Medical History: Myocardial Infarction ([place]) Medications and Allergies Home Medications Medication Instructions Recorded Confirmed Type Atorvastatin Calcium [Lipitor] 40 mg PO HS 04/12/21 06/30/24 History Sertraline HCl [Zoloft] 100 mg PO DAILY 04/12/21 06/30/24 History traMADol HCl [Ultram] 50 mg PO 5XD PRN 04/12/21 06/30/24 History Amitriptyline HCl [Elavil] 150 mg PO HS 06/30/24 06/30/24 History Diltiazem Cd [Cardizem CD] 240 mg PO DAILY 06/30/24 06/30/24 History Sertraline [Zoloft] 50 mg PO HS 06/30/24 06/30/24 History lisinopriL [Zestril] 10 mg PO BID 06/30/24 06/30/24 History Allergies Allergy/AdvReac Type Severity Reaction Status Date / Time No Known Allergies Allergy Verified 06/30/24 09:42 Physical Exam Vitals: Vital Signs Temp Pulse Resp BP Pulse Ox 06/30/24 10:11 100.1 F H 92 22 143/83 100 06/30/24 08:14 98.7 F 102 H 17 160/71 93 L 06/30/24 06:48 86 20 155/79 100 06/30/24 06:00 98.3 F 77 19 152/82 100 06/30/24 02:08 94 20 161/77 99 06/30/24 01:18 97.7 F 97 20 168/86 100 06/29/24 23:12 97.3 F L 107 H 22 100 Intake and Output 06/29/24 06/30/24 06/30/24 22:59 06:59 14:59 Other: # Bowel Movements 2 Weight 70.307 kg GENERAL DESCRIPTION: Elderly male lying in bed, no distress. No tachypnea or accessory muscle of respiration use. HEENT: Shows Pallor , no scleral icterus. Oral mucous membrane is dry. NECK: Trachea central, no thyromegaly. LUNGS: Unlabored breathing. Clear to auscultation anteriorly. No wheeze or crackle. HEART: S1, S2, regular rate and rhythm. No loud murmur ABDOMEN: Soft, no tenderness , EXTREMITIES: No edema of feet. SKIN: No rash, no masses palpable. NEUROLOGICAL: The patient is awake, alert, oriented x3, mood and affect normal. Results CBC & Chem 7: 07/01/24 06:00 07/01/24 06:00 Labs: Abnormal Lab Results - Last 24 Hours (Table) 12/06/30/24 06/30/24 Range/Units 00:07 00:07 00:07 WBC 26.2 H (3.8-10.6) k/uL RBC (4.30-5.90) m/uL Plt Count 489 H (150-450) k/uL Neutrophils # 24.0 H (1.3-7.7) k/uL Lymphocytes # 0.8 L (1.0-4.8) k/uL Monocytes # 1.2 H (0-1.0) k/uL Chloride (98-107) mmol/L Carbon Dioxide (22-30) mmol/L Glucose 158 H (74-99) mg/dL Plasma Lactic Acid Esau 6.1 H* (0.7-2.0) mmol/L Calcium 10.4 H (8.4-10.2) mg/dL Total Protein (6.3-8.2) g/dL 06/30/24 06/30/24 06/30/24 Range/Units 02:00 05:37 05:37 WBC 17.1 H (3.8-10.6) k/uL RBC 4.23 L (4.30-5.90) m/uL Plt Count (150-450) k/uL Neutrophils # 15.9 H (1.3-7.7) k/uL Lymphocytes # 0.6 L (1.0-4.8) k/uL Monocytes # (0-1.0) k/uL Chloride (98-107) mmol/L Carbon Dioxide (22-30) mmol/L Glucose (74-99) mg/dL Plasma Lactic Acid Esau 3.8 H* 5.0 H* (0.7-2.0) mmol/L Calcium (8.4-10.2) mg/dL Total Protein (6.3-8.2) g/dL 06/30/24 06/30/24 Range/Units 05:37 09:08 WBC (3.8-10.6) k/uL RBC (4.30-5.90) m/uL Plt Count (150-450) k/uL Neutrophils # (1.3-7.7) k/uL Lymphocytes # (1.0-4.8) k/uL Monocytes # (0-1.0) k/uL Chloride 109 H (98-107) mmol/L Carbon Dioxide 18 L (22-30) mmol/L Glucose 134 H (74-99) mg/dL Plasma Lactic Acid Esau 4.3 H* (0.7-2.0) mmol/L Calcium (8.4-10.2) mg/dL Total Protein 5.9 L (6.3-8.2) g/dL Assessment and Plan (1) Colitis Current Visit: Yes Status: Acute Code(s): K52.9 - NONINFECTIVE GASTROENTERITIS AND COLITIS, UNSPECIFIED SNOMED Code(s): 99800852 (2) Sepsis Current Visit: Yes Status: Acute Code(s): A41.9 - SEPSIS, UNSPECIFIED ORGANISM SNOMED Code(s): 01881648 Plan: 1patient presented to hospital with sepsis in this patient who did have fever elevated white count source is colitis with a question of infectious versus ischemic as is involving mostly the transverse and left-sided colon patient to give a history of constipation followed by diarrhea and diverticulitis will be the radiology he will need to cover for the enteric gram-negative both aerobic and anaerobic. 2await stool for C. difficile Stool culture. 3Rocephin 2 g daily and Flagyl should provide adequate antibiotic coverage while waiting for the workup to be completed. We will follow on clinical condition and cultures to further adjust medication if needed Thank you for this consultation we will follow the patient along with you Dictation was produced using [employer] dictation software. please excuse any grammatical, word or spelling errors. Time with Patient: Greater than 30
--- NOTE | 2024-07-01 12:34 | P.PN ---
Subjective patient seen and evaluated bedside. Patient is doing much better and is to minimal abdominal pain. Denies nausea, vomiting, fevers, chills. Objective - Vital Signs Vital signs: Vital Signs Temp 97.9 F 07/01/24 11:40 Pulse 65 07/01/24 11:40 Resp 16 07/01/24 11:40 BP 125/63 07/01/24 11:40 Pulse Ox 96 07/01/24 11:40 FiO2 Intake & Output 06/30/24 07/01/24 07/01/24 18:59 06:59 18:59 Weight 71.5 kg Other: Voiding Method Toilet Toilet # Voids 3 # Bowel Movements 1 1 - Exam general no acute distress Perivascularly regular rhythm Pulmonary nonlabored breathing Abdomen soft, minimally distended, minimal tenderness palpation no guarding or rebound tenderness, not a surgical abdomen - Labs CBC & Chem 7: 07/01/24 06:00 07/01/24 06:00 Labs: Abnormal Lab Results - Last 24 Hours (Table) 06/30/24 06/30/24 07/01/24 Range/Units 12:37 16:30 06:00 RBC (4.30-5.90) m/uL Hgb (13.0-17.5) gm/dL Hct (39.0-53.0) % Chloride 112 H (98-107) mmol/L Plasma Lactic Acid Esau 2.8 H* 2.4 H* (0.7-2.0) mmol/L Calcium 8.3 L (8.4-10.2) mg/dL Total Protein 5.3 L (6.3-8.2) g/dL Albumin 3.2 L (3.5-5.0) g/dL 07/01/24 Range/Units 06:00 RBC 3.44 L (4.30-5.90) m/uL Hgb 10.9 L (13.0-17.5) gm/dL Hct 32.5 L (39.0-53.0) % Chloride (98-107) mmol/L Plasma Lactic Acid Esau (0.7-2.0) mmol/L Calcium (8.4-10.2) mg/dL Total Protein (6.3-8.2) g/dL Albumin (3.5-5.0) g/dL Assessment and Plan Assessment: 79 yo male w/ non specific colitis physical exam does not reveal a surgical abdomen, ctap reviewed demonstrates non specific colitis, celiac, sma, and sepideh are all patent. aggressive iv hydration pain control patient abdominal pain has significantly improved, please advanced to a clear liquid diet. No surgical intervention at this time. Time with Patient: Less than 30
--- NOTE | 2024-07-01 13:28 | P.PN ---
Subjective Progress Note Date: 07/01/24 Patient is 79-year-old male with hypertension, hyperlipidemia, history of ischemic colitis who presents with weakness and constipation. Patient states before arrival his last bowel movement was 2 days ago. He endorses black stool and incomplete evacuation. Yesterday while attempting bowel movement patient was seated for 15 to 20 minutes and straining, he began to feel weak to continue and proceeded to rest on the bathroom floor and asked his to call EMS. He has had multiple similar episodes of needing to rest while attempting BM. He states a long history of altered bowel function with constipation predominant. While in ER patient has had multiple loose, nonbloody stools. Currently patient endorses lower abdominal pain characterized as tightness with nausea but no vomiting. Associated with this pain he feels short of breath. He does state a history of multiple colonoscopies with polyps and has been recommended to discontinue colonoscopies due to age. While in ER he was started on Zosyn and metronidazole and given Rocephin. He was also given 1.5 L of NS and later given 2 L of NS and was continued on LR at 130 mL/h. He has no other symptoms at this time. ER initial labs WBC 26.2, platelets 489, glucose 158, lactic acid 6.1 UA negative, respiratory viral panel negative. EKG done in the ER independently interpreted showed heart rate of 97, no ST segment elevation or depression seen, no T-wave inversions seen. CT angiogram of abdomen and pelvis reveals colitis, likely infectious or inflammatory and less likely to be ischemic. 07/01. Patient seen and examined. States abdominal pain has resolved. Started on clear liquid diet by surgery. Advance as tolerated REVIEW OF SYSTEMS: CONSTITUTIONAL: No fever, no malaise,. CARDIOVASCULAR: No chest pain, no palpitations, no syncope. PULMONARY: No shortness of breath, no cough, GASTROINTESTINAL: No diarrhea, no nausea, no vomiting, no abdominal pain. NEUROLOGICAL: No headaches, no weakness, PHYSICAL EXAMINATION: GENERAL: The patient is alert and oriented x3, not in any acute distress. Well developed, well nourished. HEENT: Pupils are round and equally reacting to light. EOMI. No scleral icterus. No conjunctival pallor. Normocephalic, atraumatic. No pharyngeal erythema. No thyromegaly. CARDIOVASCULAR: S1 and S2 present. No murmurs, rubs, or gallops. PULMONARY: Chest is clear to auscultation, no wheezing or crackles. ABDOMEN: Soft, nontender, nondistended, normoactive bowel sounds. No palpable or ganomegaly. MUSCULOSKELETAL: No joint swelling or deformity. EXTREMITIES: No cyanosis, clubbing, or pedal edema. NEUROLOGICAL: Gross neurological examination did not reveal any focal deficits. SKIN: No rashes. Assessment and plan #Colitis, inflammatory versus infectious #Lactic acidosis #Leukocytosis CT abdomen pelvis with evidence of colitis Initial WBC 26.2, lactic acid 6.1 Continue IV fluids Continue IV Rocephin and Flagyl Clear liquid diet ID following Surgery following # Generalized weakness PT OT consulted Chronic Medical Conditions # Essential hypertension - Resume home medication #Hyperlidemia - Resume home Atorvastatin #GERD - Resume home Pantoprazole #Anxiety/Depression - Resume home Sertraline Labs and medication were reviewed.. Continue same treatment. Continue with symptomatic treatment. Resume home medication. Monitor labs and vitals. DVT and GI prophylaxis. Further recommendations as per clinical course of the patient Dictation was produced using [employer] dictation software. please excuse any grammatical, word or spelling errors. Objective - Vital Signs Vital signs: Vital Signs Temp 97.9 F 07/01/24 11:40 Pulse 65 07/01/24 11:40 Resp 16 07/01/24 11:40 BP 125/63 07/01/24 11:40 Pulse Ox 96 07/01/24 11:40 FiO2 Intake & Output 06/30/24 07/01/24 07/01/24 18:59 06:59 18:59 Weight 71.5 kg Other: Voiding Method Toilet Toilet # Voids 3 # Bowel Movements 1 1 - Labs CBC & Chem 7: 07/01/24 06:00 07/01/24 06:00 Labs: Abnormal Lab Results - Last 24 Hours (Table) 06/30/24 06/30/24 07/01/24 Range/Units 12:37 16:30 06:00 RBC (4.30-5.90) m/uL Hgb (13.0-17.5) gm/dL Hct (39.0-53.0) % Chloride 112 H (98-107) mmol/L Plasma Lactic Acid Esau 2.8 H* 2.4 H* (0.7-2.0) mmol/L Calcium 8.3 L (8.4-10.2) mg/dL Total Protein 5.3 L (6.3-8.2) g/dL Albumin 3.2 L (3.5-5.0) g/dL 07/01/24 Range/Units 06:00 RBC 3.44 L (4.30-5.90) m/uL Hgb 10.9 L (13.0-17.5) gm/dL Hct 32.5 L (39.0-53.0) % Chloride (98-107) mmol/L Plasma Lactic Acid Esau (0.7-2.0) mmol/L Calcium (8.4-10.2) mg/dL Total Protein (6.3-8.2) g/dL Albumin (3.5-5.0) g/dL Microbiology - Last 24 Hours (Table) 06/30/24 01:25 Blood Culture - Preliminary Blood
--- NOTE | 2024-07-01 14:38 | P.PN ---
Subjective Progress Note Date: 07/01/24 Principal diagnosis: Reason for follow-up is colitis Patient is a 79-year-old male with a past medical history significant for hypertension hyperlipidemia reflux CVA TIA rheumatoid arthritis presenting to the hospital for evaluation of abdominal pain and diarrhea patient did have a CTA did shows abnormal colonic bowel wall thickening suspicious for acute colitis. On today's evaluation that is 07/01/2024, Patient is afebrile patient is currently on room air and denies having any shortness of breath, the patient denies any chest pain or cough, the patient denies any nausea vomiting did have resolution of his abdominal pain as well as diarrhea. Patient white count is normalized to 7.1 creatinine 0.86 blood cultures pending stool for C. difficile was negative Objective - Vital Signs Vital signs: Vital Signs Temp 97.9 F 07/01/24 11:40 Pulse 65 07/01/24 11:40 Resp 16 07/01/24 11:40 BP 125/63 07/01/24 11:40 Pulse Ox 96 07/01/24 11:40 FiO2 Intake & Output 06/30/24 07/01/24 07/01/24 18:59 06:59 18:59 Intake Total 500 Balance 500 Weight 71.5 kg Intake: Oral 500 Other: Voiding Method Toilet Toilet # Voids 3 # Bowel Movements 1 1 - Exam GENERAL DESCRIPTION: An elderly male lying in bed in no distress RESPIRATORY SYSTEM: Unlabored breathing , decreased breath sounds at bases HEART: S1 S2 regular rate and rhythm , ABDOMEN: Soft , no tenderness EXTREMITIES: No edema feet - Labs CBC & Chem 7: 07/01/24 06:00 07/01/24 06:00 Labs: Abnormal Lab Results - Last 24 Hours (Table) 06/30/24 07/01/24 07/01/24 Range/Units 16:30 06:00 06:00 RBC 3.44 L (4.30-5.90) m/uL Hgb 10.9 L (13.0-17.5) gm/dL Hct 32.5 L (39.0-53.0) % Chloride 112 H (98-107) mmol/L Plasma Lactic Acid Esau 2.4 H* (0.7-2.0) mmol/L Calcium 8.3 L (8.4-10.2) mg/dL Total Protein 5.3 L (6.3-8.2) g/dL Albumin 3.2 L (3.5-5.0) g/dL Microbiology - Last 24 Hours (Table) 06/30/24 01:25 Blood Culture - Preliminary Blood Assessment and Plan (1) Colitis Current Visit: Yes Status: Acute Code(s): K52.9 - NONINFECTIVE GASTROENTERITIS AND COLITIS, UNSPECIFIED SNOMED Code(s): 72868596 (2) Sepsis Current Visit: Yes Status: Acute Code(s): A41.9 - SEPSIS, UNSPECIFIED ORGANISM SNOMED Code(s): 08859729 Plan: 1patient presented to hospital with sepsis in this patient who did have fever elevated white count source is colitis with a question of infectious versus is chemic as is involving mostly the transverse and left-sided colon patient to give a history of constipation followed by diarrhea and diverticulitis will be the radiology he will need to cover for the enteric gram-negative both aerobic and anaerobic. 2stool for C. difficile negative, stool culture currently pending. 3patient did have normalization of his white count will be treated with Rocephin 2 g daily and Flagyl while waiting for the workup to be completed Dictation was produced using [employer] dictation software. please excuse any grammatical, word or spelling errors. Time with Patient: Less than 30
--- NOTE | 2024-07-02 08:20 | P.PN ---
Subjective Progress Note Date: 07/02/24 This is a 79-year-old male who presented to the emergency department with complaints of weakness and constipation. Patient has been struggling with some constipation and while attempting to have a bowel movement at home the patient became weak and asked his to call EMS. CT on admission showed colitis. Patient also had elevated lactic acid and white blood cell count on admission. General surgery and infectious disease have been consulted. Patient remains on Rocephin and Flagyl. He has been tolerating a clear liquid diet. There is no plan for surgical intervention at this time. Patient seen this morning sitting up in bed. He reports his abdominal pain has subsided and he is starting to feel better. His vital signs are stable. Objective - Vital Signs Vital signs: Vital Signs Temp 98.4 F 07/02/24 04:00 Pulse 67 07/02/24 04:00 Resp 11 L 07/02/24 04:00 BP 132/63 07/02/24 04:00 Pulse Ox 95 07/02/24 04:00 FiO2 Intake & Output 07/01/24 07/02/24 07/02/24 18:59 06:59 18:59 Intake Total 890 800 Balance 890 800 Weight 71.7 kg Intake: IV 800 Sodium Chloride 0.9% 1, 800 000 ml @ 100 mls/hr IV . Q10H [facility] Rx#:[id number] Intake, IV Titration 150 Amount cefTRIAXone 2 gm In 50 Sodium Chloride 0.9% 50 ml @ 100 mls/hr IVPB Q24HR [facility] Rx#:[id number] metroNIDAZOLE-NS PMX 500 100 mg In Saline 1 100ml.bag @ 100 mls/hr IVPB Q8HR [facility] Rx#:[id number] Oral 740 Other: Voiding Method Toilet Urinal # Voids 2 - Constitutional General appearance: Present: cooperative, no acute distress - Neck Neck: Present: normal ROM. Absent: lymphadenopathy, rigidity - Respiratory Respiratory: bilateral: CTA - Cardiovascular Rhythm: regular Heart sounds: normal: S1, S2 - Gastrointestinal General gastrointestinal: Present: soft. Absent: tenderness - Integumentary Integumentary: Present: normal, normal turgor - Psychiatric Psychiatric: Present: A&O x's 3, appropriate affect, intact judgment & insight - Labs CBC & Chem 7: 07/01/24 06:00 07/01/24 06:00 Labs: Microbiology - Last 24 Hours (Table) 06/30/24 01:25 Blood Culture - Preliminary Blood Assessment and Plan (1) Colitis Current Visit: Yes Status: Acute Code(s): K52.9 - NONINFECTIVE GASTROENTERITIS AND COLITIS, UNSPECIFIED SNOMED Code(s): 27093895 (2) Sepsis Current Visit: Yes Status: Acute Code(s): A41.9 - SEPSIS, UNSPECIFIED ORGANISM SNOMED Code(s): 03362566 (3) Weakness Current Visit: Yes Status: Acute Code(s): R53.1 - WEAKNESS SNOMED Code(s): 56185343 (4) Hypertension Current Visit: Yes Status: Acute Code(s): I10 - ESSENTIAL (PRIMARY) HYPERTENSION SNOMED Code(s): 38012875 (5) Hyperlipemia Current Visit: Yes Status: Acute Code(s): E78.5 - HYPERLIPIDEMIA, UNSPECIFIED SNOMED Code(s): 38994899 Plan: Trial of increasing diet to low residue diet. Check CBC and CMP in the morning. Patient seen and evaluated by nurse practitioner, physician in agreement with plan.
--- NOTE | 2024-07-02 10:49 | P.PN ---
Subjective Progress Note Date: 07/02/24 SURGICAL PROGRESS NOTE CHIEF COMPLAINT: Colitis HISTORY OF PRESENT ILLNESS: Patient reports that he is feeling better since admission. Diarrhea has resolved. He denies any vomiting. He reports that he had some gagging earlier. He denies any abdominal pain. Afebrile. WBC has normalized to 7.1 as of yesterday PHYSICAL EXAM: VITAL SIGNS: Reviewed. GENERAL: Well-developed in no acute distress. ABDOMEN: Soft. Nondistended. Nontender. NEUROLOGIC: Alert and oriented. Cranial nerves II through XII grossly intact. ASSESSMENT: 1. Nonspecific colitis PLAN: -Medicine service has advance diet to a low residual diet. Agree with advancing diet -No surgical intervention planned -Continue supportive care -Encourage patient to increase activity level -Antibiotics per ID service Physician Fence Installer note has been reviewed by physician. Signing provider agrees with the documented findings, assessment, and plan of care. Attestation Patient seen and examined at bedside. States abdominal pain has resolved. Passing flatus but denies any bowel movement today. Diet was advanced. No plan for acute surgical intervention. Claudio [place], Objective - Vital Signs Vital signs: Vital Signs Temp 97.7 F 07/02/24 08:00 Pulse 70 07/02/24 08:00 Resp 16 07/02/24 08:00 BP 160/66 07/02/24 08:00 Pulse Ox 97 07/02/24 08:00 FiO2 Intake & Output 07/01/24 07/02/24 07/02/24 18:59 06:59 18:59 Intake Total 890 800 240 Balance 890 800 240 Weight 71.7 kg Intake: IV 800 Sodium Chloride 0.9% 1, 800 000 ml @ 100 mls/hr IV . Q10H [facility] Rx#:[id number] Intake, IV Titration 150 Amount cefTRIAXone 2 gm In 50 Sodium Chloride 0.9% 50 ml @ 100 mls/hr IVPB Q24HR [facility] Rx#:[id number] metroNIDAZOLE-NS PMX 500 100 mg In Saline 1 100ml.bag @ 100 mls/hr IVPB Q8HR [facility] Rx#:[id number] Oral 740 240 Other: Voiding Method Toilet Urinal # Voids 2 - Labs CBC & Chem 7: 07/01/24 06:00 07/01/24 06:00 Labs: Microbiology - Last 24 Hours (Table) 06/30/24 00:07 Stool Culture - Preliminary Stool 06/30/24 01:25 Blood Culture - Preliminary Blood
[2024-07-02 22:48] VITALS: RESP 18
[2024-07-03 07:45] LABS: HCT 33.5 % (39.0-53.0); HGB 11.5 gm/dL (13.0-17.5); MCH 31.8 pg (25.0-35.0); MCHC 34.2 g/dL (31.0-37.0); MCV 92.8 fL (80.0-100.0); Mean Platelet Volume 7.3; Platelet Count 263 k/uL (150-450); RBC 3.61 m/uL (4.30-5.90); RDW 13.5 % (11.5-15.5); WBC 6.3 k/uL (3.8-10.6)
[2024-07-03 08:03] LABS: ALT 19 U/L (4-49); AST 22 U/L (17-59); African American GFR (CKD) >90 (>60 ml/min/1.73 sqM); Albumin 3.2 g/dL (3.5-5.0); Alkaline Phosphatase 51 U/L (38-126); Anion Gap 6 mmol/L; Blood Urea Nitrogen 6 mg/dL (9-20); Calcium 8.2 mg/dL (8.4-10.2); Carbon Dioxide 23 mmol/L (22-30); Chloride 107 mmol/L (98-107); Glucose 93 mg/dL (74-99); Non-African American GFR(CKD) 86 (>60 ml/min/1.73 sqM); Potassium 3.5 mmol/L (3.5-5.1); Sodium 136 mmol/L (137-145); Total Bilirubin 0.4 mg/dL (0.2-1.3); Total Protein 5.3 g/dL (6.3-8.2)
--- NOTE | 2024-07-03 08:36 | P.DS ---
Providers Date of admission: 06/30/24 03:31 Attending physician: Robin Gallagher Consults: 06/30/24 03:29 Consult Physician Routine Consulting Provider: Tino Hawthorne Consult Reason/Comments: colitis Do you want consulting provider notified?: Already Contacted 06/30/24 10:37 Consult Physician Routine Consulting Provider: Hector Mart Consult Reason/Comments: Colitis, sepsis Do you want consulting provider notified?: Yes Primary care physician: Robin Gallagher - Discharge Diagnosis(es) (1) Colitis Current Visit: Yes Status: Acute (2) Sepsis Current Visit: Yes Status: Acute (3) Weakness Current Visit: Yes Status: Acute (4) Hypertension Current Visit: Yes Status: Acute (5) Hyperlipemia Current Visit: Yes Status: Acute Hospital Course: This is a 79-year-old male who presented to the emergency department with complaints of weakness and constipation. Patient had been struggling with some constipation and while attempting to have a bowel movement at home the patient became weak and asked his to call EMS. CT on admission showed colitis. General surgery and infectious disease have been following with the patient. Patient has been on IV Rocephin and Flagyl. He has been tolerating a low residue diet. No surgical intervention has been planned. Patient reports great improvement in his symptoms. He will be sent home on ceftin and flagyl. Patient seen and evaluated by nurse practitioner, physician in agreement with plan. Patient Condition at Discharge: Serious Plan - Discharge Summary New Discharge Prescriptions: New cefuroxime axetiL [Ceftin] 500 mg PO BID 10 Days #20 tab metroNIDAZOLE [Flagyl] 500 mg PO BID 10 Days #20 tab Continue Sertraline HCl [Zoloft] 100 mg PO DAILY Atorvastatin Calcium [Lipitor] 40 mg PO HS Diltiazem Cd [Cardizem CD] 240 mg PO DAILY lisinopriL [Zestril] 10 mg PO BID Amitriptyline HCl [Elavil] 150 mg PO HS traMADol HCl [Ultram] 50 mg PO 5XD PRN PRN Reason: Pain Sertraline [Zoloft] 50 mg PO HS Discharge Medication List Atorvastatin Calcium [Lipitor] 40 mg PO HS 04/12/21 [History] Sertraline HCl [Zoloft] 100 mg PO DAILY 04/12/21 [History] traMADol HCl [Ultram] 50 mg PO 5XD PRN 04/12/21 [History] Amitriptyline HCl [Elavil] 150 mg PO HS 06/30/24 [History] Diltiazem Cd [Cardizem CD] 240 mg PO DAILY 06/30/24 [History] Sertraline [Zoloft] 50 mg PO HS 06/30/24 [History] lisinopriL [Zestril] 10 mg PO BID 06/30/24 [History] cefuroxime axetiL [Ceftin] 500 mg PO BID 10 Days #20 tab 07/03/24 [Rx] metroNIDAZOLE [Flagyl] 500 mg PO BID 10 Days #20 tab 07/03/24 [Rx] Follow up Appointment(s)/Referral(s): Robin Gallagher MD [Primary Care Provider] - 1 Week (call for an appointment for next Monday 07/[address] Gallagher) Discharge Disposition: HOME SELF-CARE
[2024-07-03 09:14] VITALS: BP 146/70; PULSE 71; TEMP 97.1
--- NOTE | 2024-07-03 11:39 | P.PN ---
Subjective Progress Note Date: 07/03/24 SURGICAL PROGRESS NOTE CHIEF COMPLAINT: Colitis HISTORY OF PRESENT ILLNESS: Patient continues to feel better. He denies any abdominal pain. Denies any nausea or vomiting. Diarrhea has resolved. He is tolerating the low residual diet. He is planning discharge today. Afebrile. WBC 6.3 PHYSICAL EXAM: VITAL SIGNS: Reviewed. GENERAL: Well-developed in no acute distress. ABDOMEN: Soft. Nondistended. Nontender. NEUROLOGIC: Alert and oriented. Cranial nerves II through XII grossly intact. ASSESSMENT: 1. Nonspecific colitis PLAN: -Patient can be discharge from surgical standpoint -Antibiotics per ID service -No surgical intervention planned Physician Steam Clean Machine Operator note has been reviewed by physician. Signing provider agrees with the documented findings, assessment, and plan of care. Objective - Vital Signs Vital signs: Vital Signs Temp 97.1 F L 07/03/24 09:11 Pulse 71 07/03/24 09:11 Resp 18 07/03/24 09:11 BP 146/70 07/03/24 09:11 Pulse Ox 95 07/03/24 09:11 FiO2 Intake & Output 07/02/24 07/03/24 07/03/24 18:59 06:59 18:59 Intake Total 480 118 Balance 480 118 Weight 70.9 kg Intake: Oral 480 118 Other: Voiding Method Urinal Urinal Urinal # Voids 1 - Labs CBC & Chem 7: 07/03/24 07:18 07/03/24 07:18 Labs: Abnormal Lab Results - Last 24 Hours (Table) 07/03/24 07/03/24 Range/Units 07:18 07:18 RBC 3.61 L (4.30-5.90) m/uL Hgb 11.5 L (13.0-17.5) gm/dL Hct 33.5 L (39.0-53.0) % Sodium 136 L (137-145) mmol/L BUN 6 L (9-20) mg/dL Calcium 8.2 L (8.4-10.2) mg/dL Total Protein 5.3 L (6.3-8.2) g/dL Albumin 3.2 L (3.5-5.0) g/dL Microbiology - Last 24 Hours (Table) 06/30/24 00:07 Stool Culture - Preliminary Stool 06/30/24 01:25 Blood Culture - Preliminary Blood Assessment and Plan Assessment: Stable for discharge Time with Patient: Less than 30
--- NOTE | 2024-07-03 13:10 | P.PN ---
Subjective Progress Note Date: 07/02/24 Principal diagnosis: Reason for follow-up is colitis Patient is a 79-year-old male with a past medical history significant for hypertension hyperlipidemia reflux CVA TIA rheumatoid arthritis presenting to the hospital for evaluation of abdominal pain and diarrhea patient did have a CTA did shows abnormal colonic bowel wall thickening suspicious for acute colitis. On today's evaluation that is 07/02/2024, patient has been afebrile, patient is breathing comfortably and is currently on room air, patient denies having any significant cough no chest pain, patient denies nausea vomiting abdominal pain has decreased in intensity and diarrhea has resolved. No new lab has been obtained today Objective - Vital Signs Vital signs: Vital Signs Temp 97.7 F 07/02/24 08:00 Pulse 82 07/02/24 12:00 Resp 16 07/02/24 12:00 BP 158/78 07/02/24 12:00 Pulse Ox 97 07/02/24 12:00 FiO2 Intake & Output 07/01/24 07/02/24 07/02/24 18:59 06:59 18:59 Intake Total 890 800 240 Balance 890 800 240 Weight 71.7 kg Intake: IV 800 Sodium Chloride 0.9% 1, 800 000 ml @ 100 mls/hr IV . Q10H [facility] Rx#:[id number] Intake, IV Titration 150 Amount cefTRIAXone 2 gm In 50 Sodium Chloride 0.9% 50 ml @ 100 mls/hr IVPB Q24HR [facility] Rx#:[id number] metroNIDAZOLE-NS PMX 500 100 mg In Saline 1 100ml.bag @ 100 mls/hr IVPB Q8HR [facility] Rx#:[id number] Oral 740 240 Other: Voiding Method Toilet Urinal Urinal # Voids 2 - Exam GENERAL DESCRIPTION: An elderly male lying in bed in no distress RESPIRATORY SYSTEM: Unlabored breathing , decreased breath sounds at bases HEART: S1 S2 regular rate and rhythm , ABDOMEN: Soft , no tenderness EXTREMITIES: No edema feet - Labs CBC & Chem 7: 07/03/24 07:18 07/03/24 07:18 Labs: Microbiology - Last 24 Hours (Table) 06/30/24 01:25 Blood Culture - Preliminary Blood 06/30/24 00:07 Stool Culture - Preliminary Stool Assessment and Plan (1) Colitis Status: Acute Code(s): K52.9 - NONINFECTIVE GASTROENTERITIS AND COLITIS, UNSPECIFIED SNOMED Code(s): 09050923 (2) Sepsis Status: Acute Code(s): A41.9 - SEPSIS, UNSPECIFIED ORGANISM SNOMED Code(s): 26785873 Plan: 1patient presented to hospital with sepsis in this patient who did have fever elevated white count source is colitis with a question of infectious versus ischemic as is involving mostly the transverse and left-sided colon patient to give a history of constipation followed by diarrhea and diverticulitis will be t he radiology he will need to cover for the enteric gram-negative both aerobic and anaerobic. 2stool for C. difficile negative, stool culture currently pending. 3patient did have normalization of his white count, in view of clinical improvement patient will be treated Rocephin 2 g daily and Flagyl while waiting for the culture to finalize Dictation was produced using [employer] dictation software. please excuse any grammatical, word or spelling errors.
--- NOTE | 2024-07-03 13:11 | P.PN ---
Subjective Progress Note Date: 07/03/24 Principal diagnosis: Reason for follow-up is colitis Patient is a 79-year-old male with a past medical history significant for hypertension hyperlipidemia reflux CVA TIA rheumatoid arthritis presenting to the hospital for evaluation of abdominal pain and diarrhea patient did have a CTA did shows abnormal colonic bowel wall thickening suspicious for acute colitis. On today's evaluation that is 07/03/2024, Patient is afebrile this morning patient denies having any chest pain shortness of breath or cough, the patient is currently on room air, patient denies any abdominal pain no diarrhea no nausea no vomiting, patient mention feeling better wants to go home. The patient white count 6.3, creatinine 0.81 blood and stool culture currently pending Objective - Vital Signs Vital signs: Vital Signs Temp 97.1 F L 07/03/24 09:11 Pulse 71 07/03/24 09:11 Resp 18 07/03/24 09:11 BP 146/70 07/03/24 09:11 Pulse Ox 95 07/03/24 09:11 FiO2 Intake & Output 07/02/24 07/03/24 07/03/24 18:59 06:59 18:59 Intake Total 480 118 Balance 480 118 Weight 70.9 kg Intake: Oral 480 118 Other: Voiding Method Urinal Urinal Urinal # Voids 1 - Exam GENERAL DESCRIPTION: An elderly male lying in bed in no distress RESPIRATORY SYSTEM: Unlabored breathing , decreased breath sounds at bases HEART: S1 S2 regular rate and rhythm , ABDOMEN: Soft , no tenderness EXTREMITIES: No edema feet - Labs CBC & Chem 7: 07/03/24 07:18 07/03/24 07:18 Labs: Abnormal Lab Results - Last 24 Hours (Table) 07/03/24 07/03/24 Range/Units 07:18 07:18 RBC 3.61 L (4.30-5.90) m/uL Hgb 11.5 L (13.0-17.5) gm/dL Hct 33.5 L (39.0-53.0) % Sodium 136 L (137-145) mmol/L BUN 6 L (9-20) mg/dL Calcium 8.2 L (8.4-10.2) mg/dL Total Protein 5.3 L (6.3-8.2) g/dL Albumin 3.2 L (3.5-5.0) g/dL Microbiology - Last 24 Hours (Table) 06/30/24 01:25 Blood Culture - Preliminary Blood 06/30/24 00:07 Stool Culture - Preliminary Stool Assessment and Plan (1) Colitis Status: Acute Code(s): K52.9 - NONINFECTIVE GASTROENTERITIS AND COLITIS, UNSPECIFIED SNOMED Code(s): 00515093 (2) Sepsis Status: Acute Code(s): A41.9 - SEPSIS, UNSPECIFIED ORGANISM SNOMED Code(s): 98561897 Plan: 1patient presented to hospital with sepsis in this patient who did have fever elevated white count source is colitis with a question of infectious versus ischemic as is involving mostly the transverse and left-sided colon patient to give a history of constipation followed by diarrhea and diverticulitis will be the radiology he will need to cover for the enteric gram-negative both aerobic and anaerobic. 2stool for C. difficile negative, stool culture currently pending. 3patient did have normalization of his white count, and clinical improvement with Rocephin and Flagyl he will be able to fit therapy with oral Ceftin and Flagyl prescription already sent to the pharmacy and close outpatient follow-up Dictation was produced using [employer] dictation software. please excuse any grammatical, word or spelling errors. Time with Patient: Less than 30
== END 2024-07-03 12:57 | disposition home or self-care (01) | DRG 872 ==
LOC: EC 23:07 → 3SCARD 06-30 03:31
PROVIDERS: ADMIT Family Medicine; ATTEND Family Medicine
DX: A41.9 Sepsis, unspecified organism (principal); E87.20 Acidosis, unspecified; I10 Essential (primary) hypertension; M06.9 Rheumatoid arthritis, unspecified; F32.A Depression, unspecified; E78.5 Hyperlipidemia, unspecified; K52.9 Noninfective gastroenteritis and colitis, unspecified; F41.9 Anxiety disorder, unspecified; K21.9 Gastro-esophageal reflux disease without esophagitis; K59.00 Constipation, unspecified; Z79.899 Other long term (current) drug therapy; Z87.891 Personal history of nicotine dependence; Z86.73 Personal history of transient ischemic attack (TIA), and cerebral infarction without residual deficits
CPT/HCPCS: 36415; 74174; 80048; 80053; 80076; 81003; 82150; 82248; 83605; 83690; 85025; 85027; 85610; 85730; 87040; 87045; 87046; 87324; 87636; 93005; 96361; 96365; 96366; 96367; 96368; 96375; 96376; 99291

== ENCOUNTER 2024-10-30 15:15 | Emergency (ER) | payer MEDICARE ==
[2024-10-30 15:20] VITALS: TEMP 97.5
[2024-10-30] MEDS ORDERED: ONDANSETRON 4 MG/2 ML VIAL IVP STA (16:15)
[2024-10-30] MEDS: ONDANSETRON 4 MG/2 ML VIAL IVP STA (16:18)
[2024-10-30] MEDS: PANTOPRAZOLE 40 MG/10 ML VIAL IVP STA (16:18)
[2024-10-30 16:34] LABS: AST 29 U/L (17-59); African American GFR (CKD) 41 (>60 ml/min/1.73 sqM); Albumin 3.8 g/dL (3.5-5.0); Alkaline Phosphatase 440 U/L (38-126); Anion Gap 15 mmol/L; Blood Urea Nitrogen 29 mg/dL (9-20); Calcium 8.9 mg/dL (8.4-10.2); Carbon Dioxide 20 mmol/L (22-30); Chloride 101 mmol/L (98-107); Glucose 196 mg/dL (74-99); Lipase 32 U/L (23-300); Magnesium 2.6 mg/dL (1.6-2.3); Non-African American GFR(CKD) 35 (>60 ml/min/1.73 sqM); Potassium 4.4 mmol/L (3.5-5.1); Sodium 136 mmol/L (137-145); Total Bilirubin 0.8 mg/dL (0.2-1.3); Total Protein 6.3 g/dL (6.3-8.2)
[2024-10-30 16:41] LABS: ALT 32 U/L (4-49)
[2024-10-30 16:48] LABS: HCT 44.9 % (39.6-50.0); HGB 15.6 g/dL (13.0-17.0); MCH 31.8 pg (27.0-32.0); MCHC 34.7 g/dL (32.0-37.0); MCV 91.4 fL (80.0-97.0); Mean Platelet Volume 9.2 fL (9.5-12.2); Platelet Count 308 10*3/uL (140-440); RBC 4.91 10*6/uL (4.40-5.60); WBC 20.68 10*3/uL (4.50-10.00)
[2024-10-30] MEDS: LACTATED RINGERS 1,000 ML IV ONE ×2 (17:24→19:02)
--- NOTE | 2024-10-30 17:37 | CT ---
EXAMINATION TYPE: CT abdomen pelvis wo con DATE OF EXAM: 10/30/2024 5:22 PM COMPARISON: Multiple prior CT abdomen/pelvis studies, most recently dated 06/30/2024. CLINICAL INDICATION: Male, 79 years old with history of abd pain; Abdominal pain. Coffee ground emesi s. TECHNIQUE: Axial CT abdomen pelvis wo con;Sagittal and coronal reformats were created on a separate workstation. Oral contrast used: without Oral Contrast (none if empty) CT DLP: 494 mGycm, Automated exposure control for dose reduction was used. FINDINGS: LOWER CHEST: Unremarkable ABDOMEN LIVER: Unremarkable GALLBLADDER AND BILE DUCTS: Unremarkable. PANCREAS: Unremarkable. SPLEEN: Unremarkable. ADRENAL GLANDS: Unremarkable. KIDNEYS AND URETERS: No evidence of hydronephrosis or renal calculus. The ureters are unremarkable. S table bilateral renal cysts. PELVIS BLADDER: No evidence for wall thickening or mass given limitations of exam. REPRODUCTIVE: Unremarkable. ABDOMEN & PELVIS STOMACH AND BOWEL: Moderate sized small bowel diverticulum (series 111 image 81). There is a long seg ment of moderate to severe wall thickening involving the transverse, descending and sigmoid colon wit h surrounding mesenteric acute inflammatory changes. Within these regions of wall thickening there is impacted colonic stool. No evidence of small bowel obstruction. Colonic diverticulosis. No drainable fluid collection/abscess. Significant fluid distention of the partially visualized esophagus suggest ing reflux and likely esophagitis. PERITONEUM/RETROPERITONEUM: No evidence of pneumoperitoneum or free fluid. VASCULATURE: No evidence of aortic aneurysm. Extensive calcified atherosclerotic disease of the abdom inal aorta. MUSCULOSKELETAL: No acute osseous abnormalities. Partially visualized compression deformities involvi ng lower thoracic spine superior endplates. LYMPH NODES: No gross evidence for lymphadenopathy. SOFT TISSUE/ABDOMINAL WALL: Small fat-containing right inguinal hernia. IMPRESSION: Long segment moderate to severe wall thickening of the transverse, descending and sigmoid colon with surrounding acute inflammatory changes. Findings are suggestive of either infectious or inflammatory colitis. Ischemic colitis would be considered less likely but difficult to exclude given lack of IV c ontrast. Additionally, there is significantly impacted colonic stool burden within these regions of w all thickening so a component of superimposed stercoral colitis is also possible. [facility], , 10/30/2024 5:34 PM
[2024-10-30 18:02] LABS: Basophils # (M) 0.41 k/uL (0-0.2); Lymphocytes # (M) 2.27 k/uL (1.0-4.8); Monocytes # (M) 0.41 k/uL (0-1.0); Neutrophils # (M) 17.58 k/uL (1.3-7.7); Neutrophils % (M) 85 %; Nucleated Red Blood Cells 0 /100 WBC (0-0); Total Cells Counted 100
--- NOTE | 2024-10-30 18:46 | ED ---
Abdominal Pain HPI - General Chief Complaint: Abdominal Pain Stated Complaint: Abd pain Time Seen by Provider: 10/30/24 15:31 Source: patient, EMS Mode of arrival: EMS Limitations: no limitations - History of Present Illness Initial Comments: 79-year-old male with past medical history of CVA, hypertension, hyperlipidemia who presents to the emergency department with coffee-ground emesis. Patient states that he has had lower abdominal pain for the past 2 days and today started having several bouts of emesis which was dark in coloration. He does admit to history of dark stools in the past where he was diagnosed with diverticulosis. He did have a colonoscopy around that time. He denies having history of upper GI bleeding. No history of gastric ulcers. He denies alcohol use. No fevers. No chest pain. No changes in his bladder habits to include anuria or hematuria. Patient is not on any blood thinners. Denies NSAID use. Does take tramadol every 4 hours. No other alleviating, precipitating or modifying factors - Related Data Home Medications Medication Instructions Recorded Confirmed Atorvastatin Calcium [Lipitor] 40 mg PO HS 04/12/21 10/30/24 Sertraline HCl [Zoloft] 150 mg PO DAILY 04/12/21 10/30/24 traMADol HCl [Ultram] 50 mg PO Q4H 04/12/21 10/30/24 Amitriptyline HCl [Elavil] 150 mg PO HS 06/30/24 10/30/24 Diltiazem Cd [Cardizem CD] 240 mg PO DAILY 06/30/24 10/30/24 lisinopriL [Zestril] 10 mg PO DAILY 06/30/24 10/30/24 Naproxen [EC-Naproxen] 500 mg PO DAILY 10/30/24 10/30/24 Allergies Allergy/AdvReac Type Severity Reaction Status Date / Time No Known Allergies Allergy Verified 10/30/24 17:46 Review of Systems ROS Statement: Those systems with pertinent positive or pertinent negative responses have been documented in the HPI. ROS Other: All systems not noted in ROS Statement are negative. 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 Past Anesthesia/Blood Transfusion Reactions: No Reported Reaction Additional Past Anesthesia/Blood Transfusion Reaction / Comment(s): Pt unsure if he's ever had a blood transfusion. Past Psychological History: Anxiety, Depression Smoking Status: Former smoker Past Alcohol Use History: None Reported Past Drug Use History: Marijuana - Past Family History Father Additional Family Medical History / Comment(s): of old age. Mother Family Medical History: Myocardial Infarction ([place]) General Exam Limitations: no limitations General appearance: alert, in no apparent distress Head exam: Present: atraumatic, normocephalic, normal inspection Eye exam: Present: normal appearance, PERRL, EOMI. Absent: scleral icterus, conjunctival injection, periorbital swelling ENT exam: Present: normal exam, mucous membranes moist Neck exam: Present: normal inspection. Absent: tenderness, meningismus, lymphadenopathy Respiratory exam: Present: normal lung sounds bilaterally. Absent: respiratory distress, wheezes, rales, rhonchi, stridor Cardiovascular Exam: Present: regular rate, normal rhythm, normal heart sounds. Absent: systolic murmur, diastolic murmur, rubs, gallop, clicks GI/Abdominal exam: Present: tenderness (lower abd pain), normal bowel sounds. Absent: distended, guarding, rebound, rigid Extremities exam: Present: normal inspection, full ROM, normal capillary refill. Absent: tenderness, pedal edema, joint swelling, calf tenderness Back exam: Present: normal inspection Neurological exam: Present: alert, oriented X3, CN II-XII intact Psychiatric exam: Present: normal affect, normal mood Skin exam: Present: warm, dry, intact, normal color. Absent: rash Course Vital Signs 10/30/24 10/30/24 10/30/24 15:17 16:06 19:21 Temperature 97.5 F L Pulse Rate 89 90 97 Respiratory 20 16 18 Rate Blood Pressure 148/70 120/61 164/71 O2 Sat by Pulse 98 98 98 Oximetry Medical Decision Making - Medical Decision Making Was pt. sent in by a medical professional or institution (, PA, [employer], urgent care, hospital, or usp...) When possible be specific @ -No Did you speak to anyone other than the patient for history (EMS, parent, family, police, friend...)? What history was obtained from this source @ -Spoke with EMS about the history Did you review nursing and triage notes (agree or disagree)? Why? @ -I reviewed and agree with nursing and triage notes Were old charts reviewed (outside hosp., previous admission, EMS record, old EKG, old radiological studies, urgent care reports/EKG's, usp records)? Report findings @ -I reviewed the CT report and hospital discharge summary as well as surgical consultation completed in June 2024 when patient was hospitalized for colitis Differential Diagnosis (chest pain, altered mental status, abdominal pain women, abdominal pain men, vaginal bleeding, weakness, fever, dyspnea, syncope, headache, dizziness, GI bleed, back pain, seizure, CVA, palpatations, mental health, musculoskeletal)? @ -Differential Abdominal Pain Men: Appendicitis, cholecystitis, diverticulosis, ischemic bowel, pancreatitis, hepatitis, UTI, gastroenteritis, AAA, incarcerated hernia, bowel obstruction, constipation, inflammatory bowel, hepatitis, peptic ulcer disease, splenic infarction, perforated viscus, testicular torsion, this is not meant to be an all-inclusive list EKG interpreted by me (3pts min.). @ -not done X-rays interpreted by me (1pt min.). @ -None done CT interpreted by me (1pt min.). @ -Which demonstrates long segment of moderate to severe wall thickening of the transverse descending and sigmoid colon with surrounding acute inflammatory changes. Suggestive of either infectious or inflammatory colitis. Ischemic colitis should be considered. Significantly impacted colonic stool burden within these regions of wall thickening so component of superimposed stercoral colitis is also possible U/S interpreted by me (1pt. min.). @ -None done What testing was considered but not performed or refused? (CT, X-rays, U/S, labs)? Why? @ -None What meds were considered but not given or refused? Why? @ -None Did you discuss the management of the patient with other professionals (professionals i.e. , PA, [employer], lab, RT, psych nurse, addiction social worker, sample carrier, teacher, seaman officer, case finisher)? Give summary @ -Spoke with Dr. Cuba, general surgeon urban and regional planner who refuses the patient due to lack of GI coverage Was smoking cessation discussed for >3mins.? @ -No Was critical care preformed (if so, how long)? @ -No Were there social determinants of health that impacted care today? How? (Homelessness, low income, unemployed, alcoholism, drug addiction, transportation, low edu. Level, literacy, decrease access to med. care, [facility], rehab)? @ -No Was there de-escalation of care discussed even if they declined (Discuss DNR or withdrawal of care, Hospice)? DNR status @ -No What co-morbidities impacted this encounter? (DM, HTN, Smoking, COPD, CAD, Canc er, CVA, ARF, Chemo, Hep., AIDS, mental health diagnosis, sleep apnea, morbid obesity)? @ -htn, hld Was patient admitted / discharged? Hospital course, mention meds given and route, prescriptions, significant lab abnormalities, going to OR and other pertinent info. @ -Transferred. Upon arrival patient seen and evaluated in room 14. He is actively vomiting dark emesis. IV is established. Patient was given 4 mg of Zofran, 80 mg of protonix and a liter bolus of normal saline. Laboratory stud ies are conducted. CT was performed which demonstrates a long segment of colon with surrounding acute inflammatory changes. Patient was given a dose of Zosyn, a second liter of IV fluids and started on 130 cc/h of normal saline. Patient is requesting his daily medication of tramadol however I want the patient to stay n.p.o. so therefore he was given a dose of intravenous morphine. Results are discussed with the patient. I also discussed them with Dr. Cuba. He refuses the patient as we do not have GI coverage. Recommends transfer to a larger institution. Did call [facility]. Dr. Gage does accept the patient. Dr. Gage is the on-call GI doctor. Patient does sign COBRA forms. He be transferred via [facility]. Patient transferred in stable condition Undiagnosed new problem with uncertain prognosis? @ -yes Drug Therapy requiring intensive monitoring for toxicity (Heparin, Nitro, Insulin, Cardizem)? @ -No Were any procedures done? @ -No Diagnosis/symptom? @ -Acute hematemesis, acute colitis, leukocytosis, lactic acidosis Acute, or Chronic, or Acute on Chronic? @ -Acute Uncomplicated (without systemic symptoms) or Complicated (systemic symptoms)? @ -Complicated Side effects of treatment? @ -No Exacerbation, Progression, or Severe Exacerbation? @ -No Poses a threat to life or bodily function? How? (Chest pain, [place], [place], pneumonia, PE, COPD, DKA, ARF, appy, cholecystitis, CVA, Diverticulitis, Homicidal, Suicidal, threat to staff... and all critical care pts) @ -yes as patient does have significant colitis with upper gi bleeding - Lab Data Result diagrams: 10/30/24 16:11 10/30/24 16:11 Lab Results 10/30/24 10/30/24 10/30/24 Range/Units 15:55 16:00 16:11 WBC 20.68 H (4.50-10.00) 10*3/uL RBC 4.91 (4.40-5.60) 10*6/uL Hgb 15.6 (13.0-17.0) g/dL Hct 44.9 (39.6-50.0) % MCV 91.4 (80.0-97.0) fL MCH 31.8 (27.0-32.0) pg MCHC 34.7 (32.0-37.0) g/dL Plt Count 308 (140-440) 10*3/uL MPV 9.2 L (9.5-12.2) fL Immature Gran % (Auto) 0.5 % Neutrophils % Not Reportable Neutrophils % (Manual) 85 % Lymphocytes % Not Reportable Lymphocytes % (Manual) 11 % Monocytes % Not Reportable Monocytes % (Manual) 2 % Eosinophils % Not Reportable Basophils % Not Reportable Basophils % (Manual) 2 % Immature Gran # 0.11 H (0.00-0.04) 10*3/uL Neutrophils # Not Reportable Neutrophils # (Manual) 17.58 H (1.3-7.7) k/uL Lymphocytes # Not Reportable Lymphocytes # (Manual) 2.27 (1.0-4.8) k/uL Monocytes # Not Reportable Monocytes # (Manual) 0.41 (0-1.0) k/uL Eosinophils # Not Reportable Basophils # Not Reportable Basophils # (Manual) 0.41 H (0-0.2) k/uL Nucleated RBCs 0 (0-0) /100 WBC Manual Slide Review Performed PT (10.0-12.5) sec INR (<1.2) APTT (22.0-30.0) sec Sodium (137-145) mmol/L Potassium (3.5-5.1) mmol/L Chloride (98-107) mmol/L Carbon Dioxide (22-30) mmol/L Anion Gap mmol/L BUN (9-20) mg/dL Creatinine (0.66-1.25) mg/dL Est GFR (CKD-EPI)AfAm (>60 ml/min/1.73 sqM) Est GFR (CKD-EPI)NonAf (>60 ml/min/1.73 sqM) Glucose (74-99) mg/dL Lactic Ac Sepsis Rflx Plasma Lactic Acid Esau (0.7-2.0) mmol/L Calcium (8.4-10.2) mg/dL Magnesium (1.6-2.3) mg/dL Total Bilirubin (0.2-1.3) mg/dL AST (17-59) U/L ALT (4-49) U/L Alkaline Phosphatase (38-126) U/L Troponin I (0.000-0.034) ng/mL Total Protein (6.3-8.2) g/dL Albumin (3.5-5.0) g/dL Lipase (23-300) U/L Gastric Occult Blood (Negative) Blood Type O Positive Blood Type Confirm O Positive Blood Type Recheck No Previous Record Bld Type Recheck Status CABO Indicated Antibody Screen NEGATIVE Spec Expiration Date 11/02/2024 - 229910/30/24 10/30/24 10/30/24 Range/Units 16:11 16:11 16:11 WBC (4.50-10.00) 10*3/uL RBC (4.40-5.60) 10*6/uL Hgb (13.0-17.0) g/dL Hct (39.6-50.0) % MCV (80.0-97.0) fL MCH (27.0-32.0) pg MCHC (32.0-37.0) g/dL Plt Count (140-440) 10*3/uL MPV (9.5-12.2) fL Immature Gran % (Auto) % Neutrophils % Neutrophils % (Manual) % Lymphocytes % Lymphocytes % (Manual) % Monocytes % Monocytes % (Manual) % Eosinophils % Basophils % Basophils % (Manual) % Immature Gran # (0.00-0.04) 10*3/uL Neutrophils # Neutrophils # (Manual) (1.3-7.7) k/uL Lymphocytes # Lymphocytes # (Manual) (1.0-4.8) k/uL Monocytes # Monocytes # (Manual) (0-1.0) k/uL Eosinophils # Basophils # Basophils # (Manual) (0-0.2) k/uL Nucleated RBCs (0-0) /100 WBC Manual Slide Review PT 11.5 (10.0-12.5) sec INR 1.1 (<1.2) APTT 21.6 L (22.0-30.0) sec Sodium 136 L (137-145) mmol/L Potassium 4.4 (3.5-5.1) mmol/L Chloride 101 (98-107) mmol/L Carbon Dioxide 20 L (22-30) mmol/L Anion Gap 15 mmol/L BUN 29 H (9-20) mg/dL Creatinine 1.82 H (0.66-1.25) mg/dL Est GFR (CKD-EPI)AfAm 41 (>60 ml/min/1.73 sqM) Est GFR (CKD-EPI)NonAf 35 (>60 ml/min/1.73 sqM) Glucose 196 H (74-99) mg/dL Lactic Ac Sepsis Rflx Plasma Lactic Acid Esau 7.2 H* (0.7-2.0) mmol/L Calcium 8.9 (8.4-10.2) mg/dL Magnesium 2.6 H (1.6-2.3) mg/dL Total Bilirubin 0.8 (0.2-1.3) mg/dL AST 29 (17-59) U/L ALT 32 (4-49) U/L Alkaline Phosphatase 440 H (38-126) U/L Troponin I (0.000-0.034) ng/mL Total Protein 6.3 (6.3-8.2) g/dL Albumin 3.8 (3.5-5.0) g/dL Lipase 32 (23-300) U/L Gastric Occult Blood (Negative) Blood Type Blood Type Confirm Blood Type Recheck Bld Type Recheck Status Antibody Screen Spec Expiration Date 10/30/24 10/30/24 10/30/24 Range/Units 16:11 16:49 16:57 WBC (4.50-10.00) 10*3/uL RBC (4.40-5.60) 10*6/uL Hgb (13.0-17.0) g/dL Hct (39.6-50.0) % MCV (80.0-97.0) fL MCH (27.0-32.0) pg MCHC (32.0-37.0) g/dL Plt Count (140-440) 10*3/uL MPV (9.5-12.2) fL Immature Gran % (Auto) % Neutrophils % Neutrophils % (Manual) % Lymphocytes % Lymphocytes % (Manual) % Monocytes % Monocytes % (Manual) % Eosinophils % Basophils % Basophils % (Manual) % Immature Gran # (0.00-0.04) 10*3/uL Neutrophils # Neutrophils # (Manual) (1.3-7.7) k/uL Lymphocytes # Lymphocytes # (Manual) (1.0-4.8) k/uL Monocytes # Monocytes # (Manual) (0-1.0) k/uL Eosinophils # Basophils # Basophils # (Manual) (0-0.2) k/uL Nucleated RBCs (0-0) /100 WBC Manual Slide Review PT (10.0-12.5) sec INR (<1.2) APTT (22.0-30.0) sec Sodium (137-145) mmol/L Potassium (3.5-5.1) mmol/L Chloride (98-107) mmol/L Carbon Dioxide (22-30) mmol/L Anion Gap mmol/L BUN (9-20) mg/dL Creatinine (0.66-1.25) mg/dL Est GFR (CKD-EPI)AfAm (>60 ml/min/1.73 sqM) Est GFR (CKD-EPI)NonAf (>60 ml/min/1.73 sqM) Glucose (74-99) mg/dL Lactic Ac Sepsis Rflx Y Plasma Lactic Acid Esau (0.7-2.0) mmol/L Calcium (8.4-10.2) mg/dL Magnesium (1.6-2.3) mg/dL Total Bilirubin (0.2-1.3) mg/dL AST (17-59) U/L ALT (4-49) U/L Alkaline Phosphatase (38-126) U/L Troponin I <0.012 (0.000-0.034) ng/mL Total Protein (6.3-8.2) g/dL Albumin (3.5-5.0) g/dL Lipase (23-300) U/L Gastric Occult Blood Positive (Negative) Blood Type Blood Type Confirm Blood Type Recheck Bld Type Recheck Status Antibody Screen Spec Expiration Date 10/30/24 Range/Units 18:52 WBC (4.50-10.00) 10*3/uL RBC (4.40-5.60) 10*6/uL Hgb (13.0-17.0) g/dL Hct (39.6-50.0) % MCV (80.0-97.0) fL MCH (27.0-32.0) pg MCHC (32.0-37.0) g/dL Plt Count (140-440) 10*3/uL MPV (9.5-12.2) fL Immature Gran % (Auto) % Neutrophils % Neutrophils % (Manual) % Lymphocytes % Lymphocytes % (Manual) % Monocytes % Monocytes % (Manual) % Eosinophils % Basophils % Basophils % (Manual) % Immature Gran # (0.00-0.04) 10*3/uL Neutrophils # Neutrophils # (Manual) (1.3-7.7) k/uL Lymphocytes # Lymphocytes # (Manual) (1.0-4.8) k/uL Monocytes # Monocytes # (Manual) (0-1.0) k/uL Eosinophils # Basophils # Basophils # (Manual) (0-0.2) k/uL Nucleated RBCs (0-0) /100 WBC Manual Slide Review PT (10.0-12.5) sec INR (<1.2) APTT (22.0-30.0) sec Sodium (137-145) mmol/L Potassium (3.5-5.1) mmol/L Chloride (98-107) mmol/L Carbon Dioxide (22-30) mmol/L Anion Gap mmol/L BUN (9-20) mg/dL Creatinine (0.66-1.25) mg/dL Est GFR (CKD-EPI)AfAm (>60 ml/min/1.73 sqM) Est GFR (CKD-EPI)NonAf (>60 ml/min/1.73 sqM) Glucose (74-99) mg/dL Lactic Ac Sepsis Rflx Plasma Lactic Acid Esau 5.6 H* (0.7-2.0) mmol/L Calcium (8.4-10.2) mg/dL Magnesium (1.6-2.3) mg/dL Total Bilirubin (0.2-1.3) mg/dL AST (17-59) U/L ALT (4-49) U/L Alkaline Phosphatase (38-126) U/L Troponin I (0.000-0.034) ng/mL Total Protein (6.3-8.2) g/dL Albumin (3.5-5.0) g/dL Lipase (23-300) U/L Gastric Occult Blood (Negative) Blood Type Blood Type Confirm Blood Type Recheck Bld Type Recheck Status Antibody Screen Spec Expiration Date Disposition Clinical Impression: Hematemesis, Colitis, Lactic acidosis Disposition: OTHER INSTITUTION NOT DEFINED Condition: Serious Is patient prescribed a controlled substance at d/c from ED?: No Referrals: Robin Gallagher MD [Primary Care Provider] - 1-2 days - Out of Hospital Transfer - Req. Specs Out of Hospital Transfer - Requested Specifics: Other Emergency [facility] ([facility]
[2024-10-30] MEDS: PIPERACILLIN-TAZOBACTAM 3.375 GM in SODIUM CHLORIDE 0.9% 100 ML IVPB STA (19:01)
[2024-10-30] MEDS: LACTATED RINGERS 1,000 ML IV SCH (19:02)
[2024-10-30 19:59] LABS: INR 1.1 (<1.2); Partial Thromboplastin Time 21.6 sec (22.0-30.0); Prothrombin Time 11.5 sec (10.0-12.5)
[2024-10-30] MEDS: MORPHINE SULFATE 4 MG/ML SYRINGE IVP STA (20:22)
[2024-10-30 20:24] VITALS: BP 128/71; PULSE 99; RESP 22
== END 2024-10-30 21:08 | disposition other institution (70) ==
LOC: EC 15:15
DX: K52.9 Noninfective gastroenteritis and colitis, unspecified (principal); E87.20 Acidosis, unspecified; E78.5 Hyperlipidemia, unspecified; I10 Essential (primary) hypertension; Z86.73 Personal history of transient ischemic attack (TIA), and cerebral infarction without residual deficits; Z87.891 Personal history of nicotine dependence
CPT/HCPCS: 36415; 86900; 86901; 80053; 83605; 83690; 83735; 84484; 85025; 85610; 85730; 86850; 82271; 74176; 99285; 96365; 96366; 96375 ×3; 96361 ×2; J2543; J2270; J2405; J2470

== ENCOUNTER 2024-11-06 06:15 | Emergency (ER) | payer MEDICARE ==
[2024-11-06 06:22] LABS: Glucose,Whole Blood 112 mg/dL (70-110)
[2024-11-06 06:28] VITALS: TEMP 98.7
[2024-11-06] MEDS: SODIUM CHLORIDE 0.9% 500 ML 500 ML IV ONE ×2 (06:45→08:58)
--- NOTE | 2024-11-06 06:49 | ED ---
Altered Mental Status HPI - General Chief Complaint: Altered Mental Status Stated Complaint: AMS Time Seen by Provider: 11/06/24 06:21 Source: patient, family, EMS, RN notes reviewed Mode of arrival: EMS Limitations: altered mental status - History of Present Illness Initial Comments: 79-year-old male presents emergency department via EMS with with chief complaint of some confusion. states that he had exploratory laparotomy surgery last week out of [place]. They followed up with his surgeon yesterday in which his MARION drain was removed stating that everything looked fine but if there is any changes in his symptoms to go to the emergency department. states that he woke up this morning with complaint of left leg pain and she became c oncerned he did not have any weakness just pain to his left leg which is now resolved. states that he just seems to be a little confused this morning but has been very fatigued, sleeping a lot since surgery and upon discharge after surgery 1 week ago. Patient had no fevers or chills no complaints of chest pain patient has no complaints himself at this time. There was no focal weakness noted. Patient said no reported fever. No UTIs. states that he is able to ambulate finally after being discharged from the hospital as he was extremely weak. - Related Data Home Medications Medication Instructions Recorded Confirmed Atorvastatin Calcium [Lipitor] 40 mg PO HS 04/12/21 10/30/24 Sertraline HCl [Zoloft] 150 mg PO DAILY 04/12/21 10/30/24 traMADol HCl [Ultram] 50 mg PO Q4H 04/12/21 10/30/24 Amitriptyline HCl [Elavil] 150 mg PO HS 06/30/24 10/30/24 Diltiazem Cd [Cardizem CD] 240 mg PO DAILY 06/30/24 10/30/24 lisinopriL [Zestril] 10 mg PO DAILY 06/30/24 10/30/24 Naproxen [EC-Naproxen] 500 mg PO DAILY 10/30/24 10/30/24 Allergies Allergy/AdvReac Type Severity Reaction Status Date / Time No Known Allergies Allergy Verified 11/06/24 06:19 Review of Systems ROS Statement: Those systems with pertinent positive or pertinent negative responses have been documented in the HPI. ROS Other: All systems not noted in ROS Statement are negative. 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 Past Anesthesia/Blood Transfusion Reactions: No Reported Reaction Additional Past Anesthesia/Blood Transfusion Reaction / Comment(s): Pt unsure if he's ever had a blood transfusion. Past Psychological History: Anxiety, Depression Smoking Status: Former smoker Past Alcohol Use History: None Reported Past Drug Use History: Marijuana - Past Family History Father Additional Family Medical History / Comment(s): of old age. Mother Family Medical History: Myocardial Infarction (MO) General Exam Limitations: altered mental status General appearance: alert, in no apparent distress Head exam: Present: atraumatic, normocephalic, normal inspection Eye exam: Present: normal appearance, PERRL, EOMI. Absent: scleral icterus, conjunctival injection, periorbital swelling ENT exam: Present: normal exam, normal oropharynx, mucous membranes moist Neck exam: Present: normal inspection, full ROM. Absent: tenderness, meni ngismus, lymphadenopathy Respiratory exam: Present: normal lung sounds bilaterally. Absent: respiratory distress, wheezes, rales, rhonchi, stridor Cardiovascular Exam: Present: regular rate, normal rhythm, normal heart sounds. Absent: systolic murmur, diastolic murmur, rubs, gallop, clicks GI/Abdominal exam: Present: soft, normal bowel sounds. Absent: distended, tenderness, guarding, rebound, rigid Extremities exam: Present: normal inspection, full ROM, normal capillary refill, other (Upper and lower extremity strength equal bilaterally). Absent: tenderness, pedal edema, joint swelling, calf tenderness Neurological exam: Present: alert, oriented X3, CN II-XII intact, reflexes normal. Absent: motor sensory deficit Expanded Speech: Present: fluid speech (Mostly fluid speech sometimes slow to respond) Cranial nerves: EOM's Intact: Normal, Tongue Deviation: Normal, Nystagmus: Normal, Facial Sensation: Normal Cerebellar function: Finger to Nose: Normal, Heel to [place]: Normal Sensory exam: Upper Extremity Light Touch: Normal, UE 2 Point Discrimination: Normal, Lower Extremity Light Touch: Normal Motor strength exam: RUE: 5, LUE: 5, RLE: 5, LLE: 5 Eye Response: (4) open spontaneously Motor Response: (6) obeys commands Verbal Response: (5) oriented [place] Total: 15 Skin exam: Present: warm, dry, intact, normal color. Absent: rash Course Vital Signs 11/06/24 11/06/24 11/06/24 06:22 06:48 07:41 Temperature 98.7 F Pulse Rate 87 65 81 Respiratory 18 15 20 Rate Blood Pressure 175/91 164/82 160/83 O2 Sat by Pulse 94 L 94 L 94 L Oximetry 11/06/24 11/06/24 11/06/24 09:00 10:00 10:43 Temperature Pulse Rate 84 79 90 Respiratory 18 18 20 Rate Blood Pressure 151/80 154/79 160/76 O2 Sat by Pulse 95 98 95 Oximetry Medical Decision Making - Medical Decision Making Was pt. sent in by a medical professional or institution (Dr. PA, WIND ENERGY MECHANIC, urgent care, hospital, or snf...) When possible be specific @ -No Did you speak to anyone other than the patient for history (EMS, parent, family, police, friend...)? What history was obtained from this source @ - providing past medical history Did you review nursing and triage notes (agree or disagree)? Why? @ -I reviewed and agree with nursing and triage notes Were old charts reviewed (outside hosp., previous admission, EMS record, old EKG, old radiological studies, urgent care reports/EKG's, snf records)? Report findings @ -No old charts were reviewed Differential Diagnosis (chest pain, altered mental status, abdominal pain women, abdominal pain men, vaginal bleeding, weakness, fever, dyspnea, syncope, headache, dizziness, GI bleed, back pain, seizure, CVA, palpatations, mental health, musculoskeletal)? @ -Differential Altered Mental Status: Hypoglycemia, DKA, hypercapnia, ETOH, overdose, CO poisoning, trauma, myxedema coma, HTN encephalopathy, infection, encephalitis, psychosis, intercranial hemorrhage, hepatic encephalopathy, meningitis, CVA, this is not meant to be an all-inclusive list EKG interpreted by me (3pts min.). @ -As above X-rays interpreted by me (1pt min.). @ -None done CT interpreted by me (1pt min.). @ -CT brain showing no acute intracranial hemorrhage, mass effect, or degenerative changes noted CT brain angio and neck showing hypoplastic area, no occlusion no other acute process U/S interpreted by me (1pt. min.). @ -None done What testing was considered but not performed or refused? (CT, X-rays, U/S, labs)? Why? @ -None What meds were considered but not given or refused? Why? @ -None Did you discuss the management of the patient with other professionals (professionals i.e. , PA, WIND ENERGY MECHANIC, lab, RT, psych nurse, social sciences lecturer, dynamometer tester engine, teacher, real estate utilization officer, human services case manager)? Give summary @ -No Was smoking cessation discussed for >3mins.? @ -No Was critical care preformed (if so, how long)? @ -No Were there social determinants of health that impacted care today? How? (Homelessness, low income, unemployed, alcoholism, drug addiction, transp ortation, low edu. Level, literacy, decrease access to med. care, fdc, rehab)? @ -No Was there de-escalation of care discussed even if they declined (Discuss DNR or withdrawal of care, Hospice)? DNR status @ -No What co-morbidities impacted this encounter? (DM, HTN, Smoking, COPD, CAD, Cancer, CVA, ARF, Chemo, Hep., AIDS, mental health diagnosis, sleep apnea, morbid obesity)? @ -None Was patient admitted / discharged? Hospital course, mention meds given and route, prescriptions, significant lab abnormalities, going to OR and other pertinent info. @ -Discharge patient presented emergency department after reported some confusion felt to be altered this morning concern was he has postsurgical exploratory laparotomy. Patient currently has no complaints she states he is at his baseline we discussed possible TIA given symptoms of confusion I did recommend inpatient treatment for possible MRI, neurology evaluation and further monitoring. She states that he has been in the hospital a lot lately and she does not prefer him to be admitted as he is currently symptom-free she does understand the risk of going home which he has a follow-up appointment and we discussed return parameters. Undiagnosed new problem with uncertain prognosis? @ -No Drug Therapy requiring intensive monitoring for toxicity (Heparin, Nitro, Insulin, Cardizem)? @ -No Were any procedures done? @ -No Diagnosis/symptom? @ -Confusion episode Acute, or Chronic, or Acute on Chronic? @ -Acute Uncomplicated (without systemic symptoms) or Complicated (systemic symptoms)? @ -Complicated Side effects of treatment? @ -No Exacerbation, Progression, or Severe Exacerbation? @ -No Poses a threat to life or bodily function? How? (Chest pain, [place], MO, pneumonia, PE, COPD, DKA, ARF, appy, cholecystitis, CVA, Diverticulitis, Homicidal, Suicidal, threat to staff... and all critical care pts) @ -No - Lab Data Result diagrams: 11/06/24 06:35 11/06/24 06:34 Lab Results 11/06/24 11/06/24 11/06/24 Range/Units 06:21 06:34 06:34 WBC (4.50-10.00) 10*3/uL RBC (4.40-5.60) 10*6/uL Hgb (13.0-17.0) g/dL Hct (39.6-50.0) % MCV (80.0-97.0) fL MCH (27.0-32.0) pg MCHC (32.0-37.0) g/dL Plt Count (140-440) 10*3/uL MPV (9.5-12.2) fL Immature Gran % (Auto) % Neutrophils % % Lymphocytes % % Monocytes % % Eosinophils % % Basophils % % Immature Gran # (0.00-0.04) 10*3/uL Neutrophils # (1.80-7.70) 10*3/uL Lymphocytes # (0.90-5.00) 10*3/uL Monocytes # (0.20-1.00) 10*3/uL Eosinophils # (0.04-0.35) 10*3/uL Basophils # (0.00-0.10) 10*3/uL PT 10.9 (10.0-12.5) sec INR 1.0 (<1.2) APTT 20.7 L (22.0-30.0) sec Sodium 135 L (137-145) mmol/L Potassium 3.6 (3.5-5.1) mmol/L Chloride 101 (98-107) mmol/L Carbon Dioxide 25 (22-30) mmol/L Anion Gap 9 mmol/L BUN 9 (9-20) mg/dL Creatinine 0.64 L (0.66-1.25) mg/dL Est GFR (CKD-EPI)AfAm >90 (>60 ml/min/1.73 sqM) Est GFR (CKD-EPI)NonAf >90 (>60 ml/min/1.73 sqM) Glucose 111 H (74-99) mg/dL POC Glucose (mg/dL) 112 H (70-110) mg/dL POC Glu Camera Systems Engineer ID Gregg Tejada Plasma Lactic Acid Esau (0.7-2.0) mmol/L Calcium 7.9 L (8.4-10.2) mg/dL Total Bilirubin 0.7 (0.2-1.3) mg/dL AST 35 (17-59) U/L ALT 22 (4-49) U/L Alkaline Phosphatase 59 (38-126) U/L Ammonia (<30) umol/L Troponin I (0.000-0.034) ng/mL Total Protein 5.6 L (6.3-8.2) g/dL Albumin 3.1 L (3.5-5.0) g/dL Urine Color Urine Appearance (Clear) Urine pH (5.0-8.0) Ur Specific Roby (1.001-1.035) Urine Protein (Negative) Urine Glucose (UA) (Negative) Urine Ketones (Negative) Urine Blood (Negative) Urine Nitrite (Negative) Urine Bilirubin (Negative) Urine Urobilinogen (<2.0) mg/dL Ur Leukocyte Esterase (Negative) Urine RBC (0-5) /hpf Urine WBC (0-5) /hpf Ur Squamous Epith Cells (0-4) /hpf 11/06/24 11/06/24 11/06/24 Range/Units 06:34 06:35 06:35 WBC 6.46 (4.50-10.00) 10*3/uL RBC 4.49 (4.40-5.60) 10*6/uL Hgb 13.8 (13.0-17.0) g/dL Hct 39.2 L (39.6-50.0) % MCV 87.3 (80.0-97.0) fL MCH 30.7 (27.0-32.0) pg MCHC 35.2 (32.0-37.0) g/dL Plt Count 225 (140-440) 10*3/uL MPV 9.3 L (9.5-12.2) fL Immature Gran % (Auto) 4.6 % Neutrophils % 68.1 % Lymphocytes % 12.7 % Monocytes % 11.6 % Eosinophils % 2.2 % Basophils % 0.8 % Immature Gran # 0.30 H (0.00-0.04) 10*3/uL Neutrophils # 4.40 (1.80-7.70) 10*3/uL Lymphocytes # 0.82 L (0.90-5.00) 10*3/uL Monocytes # 0.75 (0.20-1.00) 10*3/uL Eosinophils # 0.14 (0.04-0.35) 10*3/uL Basophils # 0.05 (0.00-0.10) 10*3/uL PT (10.0-12.5) sec INR (<1.2) APTT (22.0-30.0) sec Sodium (137-145) mmol/L Potassium (3.5-5.1) mmol/L Chloride (98-107) mmol/L Carbon Dioxide (22-30) mmol/L Anion Gap mmol/L BUN (9-20) mg/dL Creatinine (0.66-1.25) mg/dL Est GFR (CKD-EPI)AfAm (>60 ml/min/1.73 sqM) Est GFR (CKD-EPI)NonAf (>60 ml/min/1.73 sqM) Glucose (74-99) mg/dL POC Glucose (mg/dL) (70-110) mg/dL POC Glu Camera Systems Engineer ID Plasma Lactic Acid Esau 1.1 (0.7-2.0) mmol/L Calcium (8.4-10.2) mg/dL Total Bilirubin (0.2-1.3) mg/dL AST (17-59) U/L ALT (4-49) U/L Alkaline Phosphatase (38-126) U/L Ammonia <9 (<30) umol/L Troponin I (0.000-0.034) ng/mL Total Protein (6.3-8.2) g/dL Albumin (3.5-5.0) g/dL Urine Color Colorless Urine Appearance Clear (Clear) Urine pH 7.0 (5.0-8.0) Ur Specific Roby 1.050 H (1.001-1.035) Urine Protein Negative (Negative) Urine Glucose (UA) Negative (Negative) Urine Ketones 1+ H (Negative) Urine Blood Small H (Negative) Urine Nitrite Negative (Negative) Urine Bilirubin Negative (Negative) Urine Urobilinogen <2.0 (<2.0) mg/dL Ur Leukocyte Esterase Negative (Negative) Urine RBC 11 H (0-5) /hpf Urine WBC 2 (0-5) /hpf Ur Squamous Epith Cells <1 (0-4) /hpf 11/06/24 Range/Units 06:35 WBC (4.50-10.00) 10*3/uL RBC (4.40-5.60) 10*6/uL Hgb (13.0-17.0) g/dL Hct (39.6-50.0) % MCV (80.0-97.0) fL MCH (27.0-32.0) pg MCHC (32.0-37.0) g/dL Plt Count (140-440) 10*3/uL MPV (9.5-12.2) fL Immature Gran % (Auto) % Neutrophils % % Lymphocytes % % Monocytes % % Eosinophils % % Basophils % % Immature Gran # (0.00-0.04) 10*3/uL Neutrophils # (1.80-7.70) 10*3/uL Lymphocytes # (0.90-5.00) 10*3/uL Monocytes # (0.20-1.00) 10*3/uL Eosinophils # (0.04-0.35) 10*3/uL Basophils # (0.00-0.10) 10*3/uL PT (10.0-12.5) sec INR (<1.2) APTT (22.0-30.0) sec Sodium (137-145) mmol/L Potassium (3.5-5.1) mmol/L Chloride (98-107) mmol/L Carbon Dioxide (22-30) mmol/L Anion Gap mmol/L BUN (9-20) mg/dL Creatinine (0.66-1.25) mg/dL Est GFR (CKD-EPI)AfAm (>60 ml/min/1.73 sqM) Est GFR (CKD-EPI)NonAf (>60 ml/min/1.73 sqM) Glucose (74-99) mg/dL POC Glucose (mg/dL) (70-110) mg/dL POC Glu Camera Systems Engineer ID Plasma Lactic Acid Esau (0.7-2.0) mmol/L Calcium (8.4-10.2) mg/dL Total Bilirubin (0.2-1.3) mg/dL AST (17-59) U/L ALT (4-49) U/L Alkaline Phosphatase (38-126) U/L Ammonia (<30) umol/L Troponin I 0.034 (0.000-0.034) ng/mL Total Protein (6.3-8.2) g/dL Albumin (3.5-5.0) g/dL Urine Color Urine Appearance (Clear) Urine pH (5.0-8.0) Ur Specific Roby (1.001-1.035) Urine Protein (Negative) Urine Glucose (UA) (Negative) Urine Ketones (Negative) Urine Blood (Negative) Urine Nitrite (Negative) Urine Bilirubin (Negative) Urine Urobilinogen (<2.0) mg/dL Ur Leukocyte Esterase (Negative) Urine RBC (0-5) /hpf Urine WBC (0-5) /hpf Ur Squamous Epith Cells (0-4) /hpf - EKG Data -: EKG Interpreted by Me EKG Comments: EKG performed at 6: 24 sinus rhythm rate of 89 TN 150 QRS 95 QT/QTc 292/338 Disposition Clinical Impression: Fatigue, Episode of confusion Disposition: HOME SELF-CARE Condition: Stable Instructions (If sedation given, give patient instructions): Altered Mental Status (ED) Additional Instructions: Please return to the Emergency Department if symptoms worsen or any other concerns. Is patient prescribed a controlled substance at d/c from ED?: No Referrals: Robin Gallagher MD [Primary Care Provider] - 1-2 days Time of Disposition: 10:30
[2024-11-06 06:51] LABS: Lactic Acid, Venous 1.1 mmol/L (0.7-2.0)
[2024-11-06 06:52] LABS: ALT 22 U/L (4-49); African American GFR (CKD) >90 (>60 ml/min/1.73 sqM); Albumin 3.1 g/dL (3.5-5.0); Anion Gap 9 mmol/L; Blood Urea Nitrogen 9 mg/dL (9-20); Calcium 7.9 mg/dL (8.4-10.2); Carbon Dioxide 25 mmol/L (22-30); Chloride 101 mmol/L (98-107); Glucose 111 mg/dL (74-99); Non-African American GFR(CKD) >90 (>60 ml/min/1.73 sqM); Potassium 3.6 mmol/L (3.5-5.1); Sodium 135 mmol/L (137-145); Total Bilirubin 0.7 mg/dL (0.2-1.3); Total Protein 5.6 g/dL (6.3-8.2)
[2024-11-06 06:53] LABS: AST 35 U/L (17-59); Alkaline Phosphatase 59 U/L (38-126)
[2024-11-06 06:57] LABS: Basophils # (A) 0.05 10*3/uL (0.00-0.10); Basophils % (A) 0.8 %; Eosinophils # (A) 0.14 10*3/uL (0.04-0.35); Eosinophils % (A) 2.2 %; HCT 39.2 % (39.6-50.0); HGB 13.8 g/dL (13.0-17.0); Lymphocytes # (A) 0.82 10*3/uL (0.90-5.00); Lymphocytes % (A) 12.7 %; MCH 30.7 pg (27.0-32.0); MCHC 35.2 g/dL (32.0-37.0); MCV 87.3 fL (80.0-97.0); Mean Platelet Volume 9.3 fL (9.5-12.2); Monocytes # (A) 0.75 10*3/uL (0.20-1.00); Monocytes % (A) 11.6 %; Neutrophils % (A) 68.1 %; Platelet Count 225 10*3/uL (140-440); RBC 4.49 10*6/uL (4.40-5.60); WBC 6.46 10*3/uL (4.50-10.00)
[2024-11-06 07:21] LABS: Prothrombin Time 10.9 sec (10.0-12.5)
--- NOTE | 2024-11-06 07:21 | CT ---
EXAMINATION TYPE: CT brain wo con CT DLP: 1200.4 mGycm, Automated exposure control for dose reduction was used. DATE OF EXAM: 11/06/2024 7:11 AM COMPARISON: CT brain C-spine 01/23/2024, CT brain 12/30/2023 CLINICAL INDICATION:Male, 79 years old with history of Altered mental status, Altered mental status TECHNIQUE: Brain: Multiple axial CT images of the brain were obtained without IV contrast. . Coronal and sagitta l reformats reviewed. FINDINGS: Brain: Extra-axial spaces: No abnormal extra-axial fluid collections. Ventricular system: Within normal limits Cerebral parenchyma: Cerebral atrophy. No acute intraparenchymal hemorrhage or mass effect. The hernandez -white junction is well differentiated. Scattered hypoattenuating areas are seen within the periventr icular white matter. Nonspecific bilateral basal ganglia calcifications. Cerebellum: Unremarkable. Mass effect: No evidence of midline shift. Intracranial vasculature: Atherosclerotic calcifications of the intracranial vessels. Soft tissues: Normal. Calvarium/osseous structures: No depressed skull fracture. Prominent pannus formation at the C1-C2 ar ticulation. Paranasal sinuses and mastoid air cells: Clear, cerumen within the bilateral external auditory canals . Visualized orbits: Orbital contents are intact. IMPRESSION: 1. No acute intracranial process. 2. Nonspecific white matter changes, likely secondary to chronic small vessel ischemic disease. [facility], , 11/06/2024 7:18 AM
[2024-11-06 07:25] LABS: Partial Thromboplastin Time 20.7 sec (22.0-30.0)
--- NOTE | 2024-11-06 08:01 | XR ---
EXAMINATION TYPE: XR chest 2V DATE OF EXAM: 11/06/2024 7:55 AM COMPARISON: Chest radiographs from 01/23/2024 TECHNIQUE: XR chest 2V Frontal and lateral views of the chest. CLINICAL INDICATION:Male, 79 years old with history of altered mental status; FINDINGS: Lungs/Pleura: There is no evidence of pleural effusion, focal consolidation, or pneumothorax. Pulmonary vascularity: Unremarkable. Heart/mediastinum: Cardiomediastinal silhouette is unremarkable. Musculoskeletal: No acute osseous pathology. Other findings: Redemonstration of air distended stomach and/or bowel under the left diaphragm. IMPRESSION: 1. No acute cardiopulmonary disease/process. 2. Redemonstration of air distended stomach and/or bowel under the left diaphragm related to known c olitis. [facility], , 11/06/2024 7:58 AM
--- NOTE | 2024-11-06 08:42 | CT ---
EXAMINATION TYPE: CT angio head neck CT DLP: 428.3 mGycm, Automated exposure control for dose reduction was used. DATE OF EXAM: 11/06/2024 8:27 AM COMPARISON: CT brain 11/06/2024, 12/30/2023, CT brain C-spine 01/23/2024. CLINICAL INDICATION:Male, 79 years old with history of altered mental status; PHH, Altered mental sta tus with mild aphasia TECHNIQUE: Axially acquired helical CT angiogram of the head and neck was obtained with contrast util izing 75 cc of [id number]-[id number] administered intravenously. Axial images are supplemented with 3D reconstru ctions which were post-processed at an independent workstation. NASCET criteria used. MIP imaging performed on a separate workstation and submitted for review. FINDINGS: CTA HEAD: No evidence of acute intracranial hemorrhage, mass effect, or midline shift. The ventricles, sulci, a nd cisterns are unremarkable. The visualized portions of the internal carotid arteries, middle cerebral arteries, anterior cerebral arteries, and posterior cerebral arteries are patent. Hypoplastic appearance of the A1 segment of th e left anterior cerebral artery. The basilar and vertebral arteries are patent. CTA NECK: Right Carotid System: The common carotid artery and external carotid artery are patent. Minimal calcified plaque at the car otid bifurcation. The carotid bifurcation demonstrates no evidence of hemodynamically significant lian nosis. The remaining portions of the internal carotid artery demonstrate normal size without signific ant narrowing. Left Carotid System: The common carotid artery and external carotid artery are patent. Minimal calcified plaque at the car otid bifurcation. The carotid bifurcation demonstrates no evidence of hemodynamically significant lian nosis. The remaining portions of the internal carotid artery demonstrate normal size without signific ant narrowing. Vertebral arteries are patent without evidence hemodynamically significant stenosis. There is a three-vessel aortic arch. The origins of the great vessels are patent. Atherosclerotic jessa cification of the aortic arch and its branches. No evidence of hemodynamically significant stenosis. Moderate multilevel degenerative disc disease of the cervical spine. Grade 1 retrolisthesis of C6 on C7. Subcentimeter left thyroid lobe hypodense nodule. IMPRESSION: 1. No evidence of dissection of the cervical internal carotid arteries or vertebral arteries or any e vidence of significant stenosis at the carotid bifurcations. 2. No evidence of high-grade stenosis or intracranial aneurysm. 3. Hypoplastic but patent appearance of the A1 segment of the left anterior cerebral artery. [facility], , 11/06/2024 8:40 AM
[2024-11-06 10:02] LABS: Appearance,Urine Clear (Clear); Bilirubin,Urine Negative (Negative); Blood,Urine Small (Negative); Color,Urine Colorless; Glucose,Urine (UA) Negative (Negative); Ketones,Urine 1+ (Negative); Leukocyte Esterase,Urine Negative (Negative); Nitrite,Urine Negative (Negative); Protein,Urine Negative (Negative); RBC,Urine 11 /hpf (0-5); Squamous Epithelial Cell,Urine <1 /hpf (0-4); Urobilinogen,Urine <2.0 mg/dL (<2.0); WBC,Urine 2 /hpf (0-5)
[2024-11-06 10:44] VITALS: BP 160/76; PULSE 90; RESP 20
== END 2024-11-06 10:44 | disposition home or self-care (01) ==
LOC: EC 06:15
DX: R53.83 Other fatigue (principal); R41.0 Disorientation, unspecified; Z87.891 Personal history of nicotine dependence
CPT/HCPCS: 36415; 93005; 80053; 82140; 83605; 84484; 85025; 85610; 85730; 81001; 71046; 70496; 70450; 70498; 99285; 96360; 96361 ×2; Q9967